=== PATIENT | female | born 1980 | race Caucasian/White ===

== ENCOUNTER → 2018-03-23 07:20 | Outpatient (CLI) | payer OTHER, SELFPAY ==
[2018-03-23 10:13] LABS: Absolute Lymphocyte Count 1.19 X10^3/ul (0.83-4.51); Absolute Neutrophil Count 1.9 X10^3/uL (2.0-7.7); Basophil# 0.01 X10^3/uL; Basophil% 0.3 % (0-1); Eosinophil# 0.06 X10^3/uL; Eosinophils% 1.6 % (0-5); Hematocrit 41.9 % (37-47); Hemoglobin 13.9 g/dl (12.0-15.0); Lymphocyte # 1.19 X10^3/ul (4.0); Lymphocyte % 32.2 % (19-41); Mean Corp Hgb Conc 33.2 g/gl (32-36); Mean Corpuscular Hgb 29.5 pg (27.0-32.0); Mean Platelet Vol. 10.3 fl (6.2-12.0); Monocyte# 0.51 X10^3/uL; Monocyte% 13.8 % (0-10); Neutrophil # 1.92 X10^3/uL (2.7-7.7); Neutrophil % 52.1 % (47-70); Platelet Count 281 K/mm3 (150-450); RBC Distribution Width CV 13.4 % (11.6-14.6); Red Blood Count 4.71 M/mm3 (4.2-5.4); White Blood Count 3.7 K/mm3 (4.4-11.0)
[2018-03-23 10:16] LABS: POSITIVE COUNT NO; POSITIVE DIFFERENTIAL NO; POSITIVE MORPHOLOGY NO
[2018-03-23 10:34] LABS: ALB/GLOB Ratio 1.1 RATIO (0.9-2.4); AST(SGOT) 11 U/L (15-37); Alanine Aminotransfer ALT/SGPT 19 U/L (13-56); Albumin, Serum 3.6 g/dL (3.2-5.0); Alkaline Phosphatase 52 U/L (45-117); Anion Gap 8 (5-15); BUN 11 mg/dL (7-18); BUN/Creat Ratio 12.1 RATIO (10-20); Calcium,Total 8.2 mg/dL (8.5-10.1); Chloride 107 mmol/L (98-107); Creatinine, Serum 0.91 mg/dL (0.55-1.02); EST Glomerular Filtration Rate 74 mL/min (>60); Est Glom Filt Rate - Afr Amer 90 mL/min (>60); Globulin 3.4 g/dL (2.2-4.2); Glucose 110 mg/dL (74-106); Potassium 3.8 mmol/L (3.5-5.1); Sodium Level 141 mmol/L (136-145)
== END ==
PROVIDERS: Family Provider Family Medicine; PCP Family Medicine; Visit Provider Internal Medicine Rheumatology
DX: M06.4 Inflammatory polyarthropathy (principal); M21.40 Flat foot [pes planus] (acquired), unspecified foot; F32.89 Other specified depressive episodes; F41.9 Anxiety disorder, unspecified; I47.1 Supraventricular tachycardia; Z79.899 Other long term (current) drug therapy
CPT/HCPCS: 36415; 80053; 85025

== ENCOUNTER → 2018-03-30 07:44 | Outpatient (CLI) | payer OTHER, SELFPAY ==
[2018-03-30 10:25] LABS: Color, Urine Yellow (Yellow); Glucose, Dipstick Normal (Normal); Ketone-Dipstick Negative (Negative); Leukocyte Esterase-Dipstick Negative /ul (Negative); Nitrite-Dipstick Negative (Negative); Occult Blood-Urine Negative /ul (Negative); Protein-Dipstick Negative (Negative); Urine Bilirubin Dipstick Negative (Negative); Urine Clarity Clear (Clear); Urine Urobilinogen Normal (Normal)
[2018-03-30 10:36] LABS: Protein, Urine (Random) 6.7 mg/dL (<11.9); Protein:Creat Ratio 151 mg/g CRE (0-200)
[2018-03-31 10:15] LABS: Complement C3 99 mg/dL (82-167)
[2018-03-31 10:51] LABS: Vitamin D,25 Hydroxy 27.5 ng/mL (29.95-100.01)
[2018-03-31 14:34] LABS: Anti-dsDNA Ab 1 IU/mL (0-9)
== END ==
PROVIDERS: Family Provider Family Medicine; PCP Family Medicine; Visit Provider Internal Medicine Rheumatology
DX: M06.4 Inflammatory polyarthropathy (principal); M21.40 Flat foot [pes planus] (acquired), unspecified foot; F32.89 Other specified depressive episodes; F41.9 Anxiety disorder, unspecified; I47.1 Supraventricular tachycardia; Z79.899 Other long term (current) drug therapy
CPT/HCPCS: 36415; 81002; 82306; 82570; 84156; 86160; 86225

== ENCOUNTER → 2018-04-06 08:01 | Outpatient (CLI) | payer OTHER, SELFPAY ==
--- NOTE | 2018-04-06 08:12 | ECHOD_ITS ---
Reason For Study: SVT Procedure This was a 2D Doppler, Color Flow transthoracic echocardiogram. The exam was of adequate technical quality. Exam performed in department. Left Ventricle Normal LV size. Left ventricular systolic function is normal. The estimated ejection fraction is 60 %. No evidence for diastolic dysfunction. No regional wall motion abnormalities noted. Right Ventricle Normal RV size. Normal systolic function. Atria Normal left atrium. Normal right atrium. No doppler evidence for ASD. Mitral Valve There is no mitral annular calcification. Normal mitral valve. Trivial mitral valve insufficiency. Tricuspid Valve Normal tricuspid valve. Trivial tricuspid valve insufficiency. Aortic Valve Trisinus/trileaflet aortic valve. Normal aortic valve. Pulmonic Valve The pulmonic valve is not well visualized. Trivial pulmonic valve insufficiency. Great Vessels Normal sized aortic root. Pericardium/Pleural Trivial pericardial effusion. There are no echocardiographic indications of cardiac tamponade. MMode/2D Measurements & Calculations LVIDd: 4.1 cm IVSd: 0.76 cm Ao root diam: 2.1 cm LVIDs: 2.8 cm LVPWd: 0.70 cm LA dimension: 3.2 cm RVDd: 2.7 cm FS: 33.1 % LAV(MOD-bp): 22.4 ml EDV(MOD-sp4): 56.4 ml SV(MOD-sp4): 34.1 ml LAV(MOD-bp) Indexed: 13.4 ml/m2 ESV(MOD-sp4): 22.3 ml LAV(MOD-sp2): 29.8 ml EF(MOD-sp4): 60.4 % LAV(MOD-sp4): 16.3 ml LA A4 area: 9.6 cm2 RA A4 area: 8.5 cm2 Doppler Measurements & Calculations MV E max nnamdi: 95.5 cm/sec Lat Peak E' Nnamdi: 15.5 cm/sec Med Peak E' Nnamdi: 12.4 cm/sec MV A max nnamdi: 53.5 cm/sec E/E' lat: 6.2 E/E' med: 7.7 MV E/A: 1.8 Ao V2 max: 133.2 cm/sec LV V1 max: 102.6 cm/sec PA V2 max: 95.2 cm/sec Ao max P.1 mmHg LV V1 max P.2 mmHg Ao V2 mean: 102.7 cm/sec Ao mean P.4 mmHg Ao V2 VTI: 29.8 cm Interpretation Summary Left ventricular systolic function is normal. The estimated ejection fraction is 60 %. Trivial mitral valve insufficiency. Trivial tricuspid valve insufficiency. Trivial pulmonic valve insufficiency. Trivial pericardial effusion. There are no echocardiographic indications of cardiac tamponade. No evidence for diastolic dysfunction. Ordering Physician: Cassy Becker Referring Physician: Rosendo Cavazos Performed By: Lois Dowd RDCS, RVT
== END ==
PROVIDERS: Family Provider Family Medicine; PCP Family Medicine; Visit Provider Internal Medicine Rheumatology
DX: I47.1 Supraventricular tachycardia (principal); M06.4 Inflammatory polyarthropathy; M21.40 Flat foot [pes planus] (acquired), unspecified foot; F32.89 Other specified depressive episodes; F41.9 Anxiety disorder, unspecified; Z79.899 Other long term (current) drug therapy
CPT/HCPCS: 93306

== ENCOUNTER → 2018-08-09 07:37 | Outpatient (CLI) | payer OTHER, SELFPAY ==
[2018-08-09 10:17] LABS: Absolute Lymphocyte Count 1.75 X10^3/ul (0.83-4.51); Absolute Neutrophil Count 3.4 X10^3/uL (2.0-7.7); Basophil# 0.02 X10^3/uL; Basophil% 0.3 % (0-1); Eosinophil# 0.05 X10^3/uL; Eosinophils% 0.9 % (0-5); Hematocrit 42.2 % (37-47); Hemoglobin 13.6 g/dl (12.0-15.0); Lymphocyte # 1.75 X10^3/ul (4.0); Lymphocyte % 30.1 % (19-41); Mean Corp Hgb Conc 32.2 g/gl (32-36); Mean Corpuscular Hgb 29.5 pg (27.0-32.0); Mean Corpuscular Volume 91.5 fL (81-99); Mean Platelet Vol. 9.9 fl (6.2-12.0); Monocyte# 0.57 X10^3/uL; Monocyte% 9.8 % (0-10); Neutrophil # 3.42 X10^3/uL (2.7-7.7); Neutrophil % 58.7 % (47-70); Platelet Count 283 K/mm3 (150-450); RBC Distribution Width SD 43.5 fl (35.1-43.9); Red Blood Count 4.61 M/mm3 (4.2-5.4); White Blood Count 5.8 K/mm3 (4.4-11.0)
[2018-08-09 10:24] LABS: POSITIVE COUNT NO; POSITIVE DIFFERENTIAL NO; POSITIVE MORPHOLOGY NO
[2018-08-09 10:39] LABS: AST(SGOT) 11 U/L (15-37); Alanine Aminotransfer ALT/SGPT 20 U/L (13-56); Albumin, Serum 3.5 g/dL (3.2-5.0); Alkaline Phosphatase 52 U/L (45-117); Anion Gap 10 (5-15); BUN 7 mg/dL (7-18); BUN/Creat Ratio 8.3 RATIO (10-20); Chloride 107 mmol/L (98-107); Cholesterol 197 mg/dL (200); Creatinine, Serum 0.84 mg/dL (0.55-1.02); EST Glomerular Filtration Rate 81 mL/min (>60); Est Glom Filt Rate - Afr Amer 98 mL/min (>60); Globulin 3.4 g/dL (2.2-4.2); Glucose 77 mg/dL (74-106); High Density Lipoprotein 51 mg/dL; Potassium 3.9 mmol/L (3.5-5.1); Protein, Total 6.9 g/dL (6.4-8.2); Sodium Level 142 mmol/L (136-145); Thyroid Stim Hormone (TSH) 2.77 uIU/mL (0.358-3.74); Triglycerides 76 mg/dL; Very Low Density Lipoprotein 15 mg/dL (5-40)
[2018-08-11 20:08] LABS: Red Blood Cell Count Test/G6PD 4.55 x10E6/uL (3.77-5.28)
[2018-08-12 13:27] LABS: G6PD Quant Test 283 (146-376)
== END ==
PROVIDERS: Family Provider Family Medicine; PCP Family Medicine; Referring Provider Internal Medicine Rheumatology; Visit Provider Internal Medicine Rheumatology
DX: Z00.00 Encounter for general adult medical examination without abnormal findings (principal); M06.4 Inflammatory polyarthropathy; M21.40 Flat foot [pes planus] (acquired), unspecified foot; F32.89 Other specified depressive episodes; F41.9 Anxiety disorder, unspecified; I47.1 Supraventricular tachycardia; Z79.899 Other long term (current) drug therapy
CPT/HCPCS: 36415; 80053; 80061; 82955; 84443; 85025

== ENCOUNTER → 2018-08-12 07:29 | Outpatient (CLI) | payer OTHER, SELFPAY ==
[2018-08-12 10:58] LABS: Vitamin D,25 Hydroxy 24.3 ng/mL (29.95-100.01)
[2018-08-12 11:00] LABS: PTHIN 73.8 pg/mL (18.4-80.1)
== END ==
PROVIDERS: Family Provider Family Medicine; PCP Family Medicine; Referring Provider Family Medicine; Visit Provider Family Medicine
DX: D50.9 Iron deficiency anemia, unspecified (principal)
CPT/HCPCS: 36415; 82306; 83970

== ENCOUNTER 2019-06-17 19:38 | Emergency (ER) | payer OTHER, SELFPAY ==
[2019-03-02 07:34] VITALS: BMI 23.3
[2019-06-17 19:40] VITALS: BP 120/79; PULSE 103; RESP 16; TEMP 37.2; O2SAT 100; BMI 24.0
[2019-06-17 19:58] LABS: Bacteria 0 SEEN /hpf (None Seen); Mucous, Urine 0 SEEN /hpf (<or=2+)
[2019-06-17 20:03] LABS: Color, Urine Yellow (Yellow); Glucose, Dipstick Normal (Normal); Ketone-Dipstick Negative (Negative); Leukocyte Esterase-Dipstick 25 /ul (Negative); Nitrite-Dipstick Negative (Negative); Occult Blood-Urine 25 /ul (Negative); Protein-Dipstick 15 mg/dl (Negative); Urine Bilirubin Dipstick Negative (Negative); Urine Clarity Sl. Cloudy (Clear); Urine Urobilinogen 1 mg/dl (Normal)
[2019-06-17 20:17] LABS: Squamous Epithelial Cells - UA 0-5 SEEN /hpf (5-10)
[2019-06-17 20:19] LABS: Red Blood Cells-Urine 0-5 SEEN /hpf (0-5); White Blood Cells 0-5 SEEN /hpf (0-5)
[2019-06-17 20:39] VITALS: TEMP 37.3
[2019-06-17 21:00] VITALS: BP 119/70; PULSE 104; RESP 17; TEMP 37.3; O2SAT 98
--- NOTE | 2019-06-17 21:08 | CT_ITS ---
STUDY: CT ABDOMEN AND PELVIS WITHOUT CONTRAST REASON FOR EXAM: Female, 39 years old. Bilateral flank pain RADIATION DOSAGE (If Supplied By Facility): CTDIvol = ( 6.44 ) mGy, DLP = ( 313.50 ) mGycm TECHNIQUE: Transaxial images were obtained from the dome of the diaphragm to the symphysis pubis without oral contrast, and without intravenous contrast. Sagittal and coronal images were reconstructed. Individualized dose optimization techniques were used for this CT. COMPARISON: None. FINDINGS: The visualized lung bases are unremarkable. The visualized portions of the heart are within normal limits. Liver is prominent but homogeneous attenuation. There is a large solid nodule in the right lobe consistent with known hemangioma. Bile ducts are not dilated. Normal gallbladder and extrahepatic biliary system. Borderline splenomegaly containing tiny granulomatous calcification Normal pancreas. Normal bilateral adrenal glands. No evidence for renal obstruction or ureteral calculus.. No definitive evidence for renal mass given limited unenhanced nature of the study. Normal visualized stomach. Nonspecific ileus with diffuse fecal retention in the colon.. No evidence for acute appendicitis Normal abdominal aorta. Normal inferior vena cava. Normal retroperitoneum. Incompletely distended thick-walled bladder likely of no significance. . Normal abdominal wall. Normal osseous structures. CT/Abdomen/Pelvis without Cont IMPRESSION: Nonspecific hepatomegaly and borderline splenomegaly. Nonspecific ileus with diffuse fecal retention in the colon. No evidence for small bowel obstruction or pneumoperitoneum. Electronically Signed: Woo Bacon MD at 21:49 EDT , Service support ,
[2019-06-17] MEDS: 0.9% Normal Saline 1,000 ML 1000 ML IV (21:19)
[2019-06-17] MEDS: Ketorolac 30 MG/ML Syringe IV (21:20)
[2019-06-17 21:30] LABS: Absolute Lymphocyte Count 4.53 X10^3/uL (0.83-4.51); Absolute Neutrophil Count 3.1 X10^3/uL (2.0-7.7); Basophil# 0.12 X10^3/uL; Basophil% 1.4 % (0-1); Eosinophil# 0.14 X10^3/uL; Eosinophils% 1.7 % (0-5); Hematocrit 48.2 % (37-47); Lymphocyte # 4.53 X10^3/ul (4.0); Lymphocyte % 54.1 % (19-41); Mean Corp Hgb Conc 33.2 g/dL (32-36); Mean Corpuscular Hgb 29.5 pg (27.0-32.0); Mean Corpuscular Volume 88.9 fL (81-99); Mean Platelet Vol. 9.2 fl (6.2-12.0); NRBC Flagged by Analyzer 0 % (0-5); Neutrophil # 3.06 X10^3/uL (2.7-7.7); Neutrophil % 36.6 % (47-70); POSITIVE MORPHOLOGY YES; Platelet Count 194 K/mm3 (150-450); RBC Distribution Width CV 13.1 % (11.6-14.6); RBC Distribution Width SD 42.5 fl (35.1-43.9); Red Blood Count 5.42 M/mm3 (4.2-5.4); White Blood Count 8.4 K/mm3 (4.4-11.0)
[2019-06-17 21:36] LABS: Differential Indicated SCAN CRITERIA MET
[2019-06-17 21:39] LABS: Anion Gap 8 (5-15); BUN 6 mg/dL (7-18); BUN/Creat Ratio 6.2 RATIO (10-20); Calcium,Total 8.7 mg/dL (8.5-10.1); Chloride 104 mmol/L (98-107); Creatinine, Serum 0.97 mg/dL (0.55-1.02); EST Glomerular Filtration Rate 69 mL/min (>60); Est Glom Filt Rate - Afr Amer 84 mL/min (>60); Estimated Creatinine Clearance 68.57 ml/min; Glucose 88 mg/dL (74-106); Potassium 3.7 mmol/L (3.5-5.1); Sodium Level 138 mmol/L (136-145)
[2019-06-17 21:50] LABS: Differential Comment SCANNED
[2019-06-17 22:00] VITALS: TEMP 37.3
--- NOTE | 2019-06-17 22:47 | ED.DCSUM_ITS ---
- ER Visit Summary Date of Service: 06/17/19 Chief Complaint: Flank pain History of Present Illness: The patient is a 39 F who presents with bilateral flank pain that is been getting worse over the past 4 to 5 days. Patient describes it as aching. Patient states the pain is over both flanks. Patient states it improved somewhat with heat. Patient states nothing makes it worse. Patient admits to subjective fevers and sweats. Patient admits to some nausea and diarrhea recently. Patient admits to some dysuria. Patient does have a history of lupus. Physical Examination: Vital signs are stable. Patient is afebrile. Patient is in no acute distress. Oral mucosa is pink and moist. Neck is supple. Trachea is midline. There is no JVD noted. Heart was regular rate and rhythm. Lungs are clear and equal bilaterally. Abdomen is soft. Bowel sounds are normal. There is bilateral CVA tenderness. There is no rebound or guarding noted. Cranial nerves II through XII are intact. There are no focal motor or sensory deficits noted. Test Results: Urinalysis was obtained and does not show any evidence of urinary tract infection. CBC and basic metabolic profile within normal limits. CT scan of the abdomen and pelvis was obtained. There is no acute intra-abdominal process noted. Emergency Department Course and Treatment: Patient was given IV fluids and Toradol here. Patient was instructed to continue Tylenol and ibuprofen as needed for pain. Patient was instructed to follow-up with her primary care physician in 5 to 7 days for further evaluation. Patient understood and was agreeable with the plan. All questions were answered. Disposition: Discharge home Impression: Bilateral flank pain This note was generated with [employer] dictation software. It may contain incorrect words, spelling, and punctuation that were not noted in review of the chart prior to signing ED Disposition - Plan for ED Patient: Disposition: Home or Assisted Living Diagnosis: Bilateral flank pain Instructions: FLANK PAIN, Uncertain Cause Referrals: Rosendo Cavazos MD [Primary Care Provider] - 5-7 Days
[2019-06-17 22:59] VITALS: BP 122/81; PULSE 101; RESP 17; TEMP 37.3; O2SAT 97
== END 2019-06-17 23:09 | disposition home or self-care (01) ==
PROVIDERS: Emergency Provider Emergency Medicine; Family Provider Family Medicine; PCP Family Medicine
DX: R10.9 Unspecified abdominal pain (principal); F41.9 Anxiety disorder, unspecified; M32.9 Systemic lupus erythematosus, unspecified; Z79.82 Long term (current) use of aspirin; Z79.899 Other long term (current) drug therapy
CPT/HCPCS: 74176; 80048; 81001; 85025; 96361; 96374; 99283; J7030; A4216

== ENCOUNTER → 2019-06-20 16:42 | Outpatient (CLI) | payer OTHER, SELFPAY ==
[2019-06-17 19:40] VITALS: BMI 24.0
[2019-06-20 18:24] LABS: Hematocrit 43.6 % (37-47); Hemoglobin 14.7 g/dL (12.0-15.0)
[2019-06-20 18:29] LABS: Thyroid Stim Hormone (TSH) 2.24 uIU/mL (0.358-3.74)
[2019-06-20 18:35] LABS: Internal QC Validated? YES +Cl - CLEAR BKGD
[2019-06-20 18:36] LABS: Monotest Negative (Negative)
[2019-06-20 19:28] LABS: Color, Urine Yellow (Yellow); Glucose, Dipstick Normal (Normal); Ketone-Dipstick Negative (Negative); Leukocyte Esterase-Dipstick Negative /ul (Negative); Nitrite-Dipstick Negative (Negative); Occult Blood-Urine 25 /ul (Negative); Protein-Dipstick Negative (Negative); Urine Bilirubin Dipstick Negative (Negative); Urine Clarity Sl. Cloudy (Clear); Urine Urobilinogen Normal (Normal)
== END ==
PROVIDERS: Family Provider Family Medicine; PCP Family Medicine; Visit Provider Nurse Practitioner Family
DX: R10.9 Unspecified abdominal pain (principal); R53.83 Other fatigue
CPT/HCPCS: 36415; 81002; 84443; 85014; 85018; 86308; 87086; 87088

== ENCOUNTER → 2019-08-08 14:48 | Outpatient (CLI) | payer OTHER, SELFPAY ==
[2019-08-08 17:24] LABS: Absolute Lymphocyte Count 3.35 X10^3/uL (0.83-4.51); Absolute Neutrophil Count 3.1 X10^3/uL (2.0-7.7); Basophil# 0.05 X10^3/uL; Basophil% 0.7 % (0-1); Eosinophils% 1.4 % (0-5); Hematocrit 43.4 % (37-47); Hemoglobin 14.3 g/dL (12.0-15.0); Lymphocyte # 3.35 X10^3/ul (4.0); Lymphocyte % 47.1 % (19-41); Mean Corp Hgb Conc 32.9 g/dL (32-36); Mean Corpuscular Hgb 29.9 pg (27.0-32.0); Mean Corpuscular Volume 90.6 fL (81-99); Mean Platelet Vol. 9.8 fl (6.2-12.0); Monocyte# 0.55 X10^3/uL; Monocyte% 7.7 % (0-10); NRBC Flagged by Analyzer 0 % (0-5); Neutrophil # 3.05 X10^3/uL (2.7-7.7); Platelet Count 288 K/mm3 (150-450); RBC Distribution Width SD 42.9 fl (35.1-43.9); Red Blood Count 4.79 M/mm3 (4.2-5.4); White Blood Count 7.1 K/mm3 (4.4-11.0)
[2019-08-08 17:40] LABS: Erythrocyte Sedimentation Rate 5 mm/hr (0-20)
[2019-08-08 17:50] LABS: BUN 13 mg/dL (7-18); BUN/Creat Ratio 13.8 RATIO (10-20); Creatinine, Serum 0.94 mg/dL (0.55-1.02); EST Glomerular Filtration Rate 71 mL/min (>60); Est Glom Filt Rate - Afr Amer 86 mL/min (>60); Glucose 73 mg/dL (74-106); Protein, Total 7.6 g/dL (6.4-8.2)
[2019-08-08 17:51] LABS: ALB/GLOB Ratio 1.1 RATIO (0.9-2.4); AST(SGOT) 18 U/L (15-37); Alanine Aminotransfer ALT/SGPT 24 U/L (13-56); Alkaline Phosphatase 55 U/L (45-117); Anion Gap 7 (5-15); Calcium,Total 8.6 mg/dL (8.5-10.1); Chloride 110 mmol/L (98-107); Globulin 3.6 g/dL (2.2-4.2); Potassium 3.5 mmol/L (3.5-5.1); Sodium Level 141 mmol/L (136-145); Thyroid Stim Hormone (TSH) 3.03 uIU/mL (0.358-3.74)
== END ==
PROVIDERS: Family Provider Family Medicine; PCP Family Medicine; Referring Provider Family Medicine; Visit Provider Family Medicine
DX: R16.2 Hepatomegaly with splenomegaly, not elsewhere classified (principal)
CPT/HCPCS: 36415; 80053; 84443; 85025; 85652

== ENCOUNTER → 2020-04-10 09:16 | Outpatient (CLI) | payer OTHER, SELFPAY ==
[2020-04-10 10:34] LABS: Absolute Lymphocyte Count 2.17 X10^3/uL (0.83-4.51); Absolute Neutrophil Count 2.2 X10^3/uL (2.0-7.7); Basophil# 0.06 X10^3/uL; Basophil% 1.2 % (0-1); Eosinophil# 0.09 X10^3/uL; Eosinophils% 1.8 % (0-5); Hematocrit 44.9 % (37-47); Hemoglobin 14.6 g/dL (12.0-15.0); Lymphocyte # 2.17 X10^3/ul (4.0); Lymphocyte % 43.8 % (19-41); Mean Corp Hgb Conc 32.5 g/dL (32-36); Mean Corpuscular Hgb 29.9 pg (27.0-32.0); Mean Corpuscular Volume 91.8 fL (81-99); Mean Platelet Vol. 9.6 fl (6.2-12.0); Monocyte# 0.44 X10^3/uL; Monocyte% 8.9 % (0-10); NRBC Flagged by Analyzer 0 % (0-5); Neutrophil # 2.19 X10^3/uL (2.7-7.7); Neutrophil % 44.1 % (47-70); Platelet Count 310 K/mm3 (150-450); RBC Distribution Width CV 12.7 % (11.6-14.6); RBC Distribution Width SD 42.7 fl (35.1-43.9); Red Blood Count 4.89 M/mm3 (4.2-5.4)
[2020-04-10 12:15] LABS: ALB/GLOB Ratio 1.1 RATIO (0.9-2.4); AST(SGOT) 13 U/L (15-37); Alanine Aminotransfer ALT/SGPT 23 U/L (13-56); Albumin, Serum 3.8 g/dL (3.2-5.0); Alkaline Phosphatase 54 U/L (45-117); Anion Gap 8 (5-15); BUN 9 mg/dL (7-18); BUN/Creat Ratio 9.6 RATIO (10-20); Calcium,Total 8.8 mg/dL (8.5-10.1); Chloride 106 mmol/L (98-107); Creatinine, Serum 0.94 mg/dL (0.55-1.02); EST Glomerular Filtration Rate 71 mL/min (>60); Est Glom Filt Rate - Afr Amer 86 mL/min (>60); Follicle Stimulating Hormone 7.4 mIU/mL; Free T3 2.8 pg/mL (2.18-3.98); Globulin 3.6 g/dL (2.2-4.2); Glucose 81 mg/dL (74-106); Luteinizing Hormone 3.6 mIU/mL; Magnesium 2.3 mg/dL (1.6-2.6); Potassium 3.9 mmol/L (3.5-5.1); Protein, Total 7.4 g/dL (6.4-8.2); Sodium Level 142 mmol/L (136-145); T4 Free Direct 0.99 ng/dL (0.76-1.46); Thyroid Stim Hormone (TSH) 1.43 uIU/mL (0.358-3.74)
[2020-04-14 03:06] LABS: Lyme IgG P18 Ab Absent (.); Lyme IgG P23 Ab Absent (.); Lyme IgG P28 Ab Absent (.); Lyme IgG P30 Ab Absent (.); Lyme IgG P39 Ab Absent (.); Lyme IgG P41 Ab Absent (.); Lyme IgG P45 Ab Absent (.); Lyme IgG P58 Ab Absent (.); Lyme IgG P66 Ab Absent (.); Lyme IgG P93 Ab Absent (.); Lyme IgM P23 Ab Absent (.); Lyme IgM P39 Ab Absent (.); Lyme IgM P41 Ab Absent (.); QNTFERON TB Mitogen Value > 10.00 IU/mL (.); QNTFERON TB Nil Value 0.08 IU/mL (.); QNTFERON TB1+ Ag Value 0.11 IU/mL (.); QNTFERON TB2+ Ag Value 0.19 IU/mL (.)
[2020-04-14 13:08] LABS: Lyme IgG WB Interpretation Negative (.); Lyme IgM WB Interpretation Negative (.); QNTIFERON TB Positive Criteria Negative (Negative)
== END ==
PROVIDERS: PCP Family Medicine; Referring Provider Family Medicine; Visit Provider Family Medicine
DX: R61 Generalized hyperhidrosis (principal)
CPT/HCPCS: 36415; 80053; 83001; 83002; 83735; 84439; 84443; 84481; 85025; 86480; 86617

== ENCOUNTER → 2020-11-15 10:19 | Outpatient (CLI) | payer OTHER, SELFPAY ==
[2020-11-15 12:22] LABS: Absolute Lymphocyte Count 2.37 X10^3/uL (0.83-4.51); Absolute Neutrophil Count 3.2 X10^3/uL (2.0-7.7); Basophil# 0.06 X10^3/uL; Eosinophil# 0.09 X10^3/uL; Eosinophils% 1.5 % (0-5); Hematocrit 44.2 % (37-47); Hemoglobin 14.6 g/dL (12.0-15.0); Lymphocyte # 2.37 X10^3/ul (4.0); Lymphocyte % 38.6 % (19-41); Mean Corpuscular Hgb 30.5 pg (27.0-32.0); Mean Corpuscular Volume 92.3 fL (81-99); Mean Platelet Vol. 9.6 fl (6.2-12.0); Monocyte# 0.44 X10^3/uL; Monocyte% 7.2 % (0-10); NRBC Flagged by Analyzer 0 % (0-5); Neutrophil # 3.16 X10^3/uL (2.7-7.7); Neutrophil % 51.4 % (47-70); Platelet Count 342 K/mm3 (150-450); RBC Distribution Width CV 12.6 % (11.6-14.6); RBC Distribution Width SD 42.8 fl (35.1-43.9); Red Blood Count 4.79 M/mm3 (4.2-5.4); White Blood Count 6.1 K/mm3 (4.4-11.0)
[2020-11-15 13:01] LABS: ALB/GLOB Ratio 1.1 RATIO (0.9-2.4); AST(SGOT) 14 U/L (15-37); Alanine Aminotransfer ALT/SGPT 20 U/L (13-56); Albumin, Serum 3.9 g/dL (3.2-5.0); Alkaline Phosphatase 61 U/L (45-117); Anion Gap 6 (5-15); BUN 13 mg/dL (7-18); BUN/Creat Ratio 12.9 RATIO (10-20); CPK Total, Creatine Kinase 76 U/L (26-192); Calcium,Total 8.6 mg/dL (8.5-10.1); Chloride 107 mmol/L (98-107); Creatinine, Serum 1.01 mg/dL (0.55-1.02); EST Glomerular Filtration Rate 65 mL/min (>60); Est Glom Filt Rate - Afr Amer 79 mL/min (>60); Globulin 3.5 g/dL (2.2-4.2); Glucose 72 mg/dL (74-106); Potassium 3.9 mmol/L (3.5-5.1); Protein, Total 7.4 g/dL (6.4-8.2); Rheumatoid Factor < 10.0 IU/mL (<15); Sodium Level 138 mmol/L (136-145)
[2020-11-17 03:06] LABS: Complement C3 107 mg/dL (82-167); Dilute Prothrombin Time (dPT) 40.4 sec (0.0-55.0); Dilute Russell Viper Venom 39.2 sec (0.0-47.0); PTT-LA 36.1 sec (0.0-51.9); Thrombin Time 18.8 sec (0.0-23.0); dPT Confirm Ratio 1.18 Ratio (0.00-1.40)
[2020-11-17 08:35] LABS: Anti-Cardiolipin Ab, IgA, Qn 9 APL U/mL (0-11); Anti-Cardiolipin Ab, IgG, Qn 9 GPL U/mL (0-14); Anti-Cardiolipin Ab, IgM, Qn 17 MPL U/mL (0-12); CCP IgG Antibodies 9 units (0-19); Interpretation Comment: (.)
== END ==
PROVIDERS: PCP Family Medicine
DX: M32.10 Systemic lupus erythematosus, organ or system involvement unspecified (principal); E16.2 Hypoglycemia, unspecified
CPT/HCPCS: 36415; 80053; 82550; 85025; 86038; 86147; 86160; 86200; 86225; 86235; 86431

== ENCOUNTER → 2021-07-31 | Outpatient (CLI) | payer OTHER, SELFPAY | END | disposition home or self-care (01) | LOC: LABSPEC 15:12 | PROVIDERS: PCP Family Medicine; Visit Provider Physician Assistant | DX: Z20.822 Contact with and (suspected) exposure to COVID-19 (principal) | CPT/HCPCS: 87635; U0005; U0003 ==

== ENCOUNTER 2022-01-09 07:56 | Outpatient (CLI) | payer OTHER, SELFPAY ==
--- NOTE | 2022-01-09 07:58 | US_ITS ---
STUDY: ABDOMINAL ULTRASOUND REASON FOR EXAM: Female, 41 years old. ABD PAIN TECHNIQUE: Transabdominal ultrasound was performed with real-time and static ron scale imaging. TECHNICAL QUALITY: Adequate. COMPARISON: None. FINDINGS: Liver: The liver measures 14 cm. There is normal echogenicity of the liver. The bile ducts are within normal limits. There is hepatic color flow. The direction of portal flow is hepatopetal. Stable known hemangioma in the right lobe measuring 6.8 x 6.8 x 5.8 cm. Portal vein measurement: Gallbladder: Normal distended gallbladder. The gallbladder wall measures 1.8 mm. There is a negative sonographic Broussard''s sign. There is no pericholecystic fluid. There are no gallstones, there is a nonshadowing 5 mm polyp. Common Bile Duct (C.B.D.): The common bile duct measures 3.1 mm. Pancreas: Normal size of the head, body and tail of the pancreas. There is normal echogenicity of the pancreas. There is no demonstrated pancreatic mass or cyst. Spleen: Normal size of the spleen. The spleen measures 9.6 cm. Right Kidney: Normal size of the right kidney. The right kidney measures 10.6 x 4.5 x 3.1 cm. Normal renal cortex. The right cortex measures 1.0 cm. There is no demonstrated renal mass or cyst. There is no right hydronephrosis. Left Kidney: Normal size of the left kidney. The left kidney measures 10.3 x 4.5 x 3.6 cm. Normal renal cortex. The left cortex measures 1.2 cm. There is no demonstrated renal mass or cyst. There is no left hydronephrosis. Aorta: Tapers normally I.V.C.: The IVC is patent. There is no ascites. US/Abdomen Complete IMPRESSION: Stable 6.8 cm hyperechoic hemangioma in the right lobe of the liver Nonshadowing gallbladder polyp, no sonographic evidence of acute gallbladder disease Sonographically normal kidneys Electronically Signed: Niels Burrell MD at 17:20 EST ,
== END 2022-01-09 23:59 | disposition home or self-care (01) ==
LOC: US 07:57
PROVIDERS: PCP Family Medicine; Referring Provider Nurse Practitioner Family; Visit Provider Nurse Practitioner Family
DX: R10.13 Epigastric pain (principal)
CPT/HCPCS: 76700

== ENCOUNTER → 2022-03-04 | Outpatient (CLI) | payer OTHER, SELFPAY ==
--- NOTE | 2022-03-04 10:17 | RAD_ITS ---
INDICATION: JOINT PAIN, SYSTEMIC LUPUS EXAMINATION/TECHNIQUE: X-RAY - LEFT XR Wrist Min 3 Views 3 VIEWS COMPARISON: None. FINDINGS: No acute fracture or subluxation. Joint spaces are intact. No significant degenerative changes. No destructive osseous lesions. Soft tissues are unremarkable. RAD/Wrist min 3 Views IMPRESSION: Negative. Electronically Signed: Geo Clemens, at 11:22 EDT ,
--- NOTE | 2022-03-04 10:18 | RAD_ITS ---
STUDY: X-RAY - RIGHT HAND REASON FOR EXAM: Female, 41 years old. Pain. TECHNIQUE: 3 view(s) of the hand. COMPARISON: None. FINDINGS: Normal radiocarpal articulation. Normal distal radioulnar joint. Normal visualized carpal bones. Mild arthrosis of the radial carpal row. Mild arthrosis of the first CMC joint. Normal second through fifth carpometacarpal joints. Normal metacarpi. Mild arthrosis of the MCP and IP joints. The soft tissue structures are unremarkable. RAD/Hand Min 3 Views IMPRESSION: Mild osteoarthritic changes as described. No acute abnormality. Electronically Signed: Herbert Munguia MD at 10:43 EDT ,
--- NOTE | 2022-03-04 10:18 | RAD_ITS ---
STUDY: X-RAY - LEFT HAND REASON FOR EXAM: Female, 41 years old. Pain. TECHNIQUE: 3 view(s) of the hand. COMPARISON: None. FINDINGS: Normal radiocarpal articulation. Normal distal radioulnar joint. Normal visualized carpal bones. Mild arthrosis of the radial carpal row. Mild arthrosis of the first CMC joint. Normal second through fifth carpometacarpal joints. Normal metacarpi. Mild arthrosis of the MCP and IP joints. The soft tissue structures are unremarkable. RAD/Hand Min 3 Views IMPRESSION: Mild osteoarthritic changes as described. No acute abnormality. Electronically Signed: Herbert Munguia MD at 10:44 EDT ,
--- NOTE | 2022-03-04 10:18 | RAD_ITS ---
INDICATION: JOINT PAIN EXAMINATION/TECHNIQUE: X-RAY - RIGHT XR Wrist Min 3 Views 3 VIEWS COMPARISON: None. FINDINGS: No acute fracture or subluxation. Joint spaces are intact. Soft tissues are unremarkable. No significant degenerative changes. No destructive osseous lesions. RAD/Wrist min 3 Views IMPRESSION: Negative. Electronically Signed: Geo Clemens, at 11:21 EDT ,
--- NOTE | 2022-03-04 10:20 | RAD_ITS ---
STUDY: X-RAY CHEST REASON FOR EXAM: Female, 41 years old. Lupus. Follow-up. TECHNIQUE: Frontal and lateral views of the chest. COMPARISON: 11/20/2017. FINDINGS: The lungs are clear and expanded. There is no demonstrated pleural abnormality. Normal size heart. Normal mediastinum and jose. Normal visualized pulmonary arteries. Normal visualized aortic arch and descending thoracic aorta. Normal visualized thoracic spine. Normal visualized ribs, clavicles, and shoulders. There is no demonstrated abnormality of the visualized soft tissue structures of the upper abdomen. RAD/Chest PA and Lateral IMPRESSION: No interval change. Normal chest. Electronically Signed: Herbert Munguia MD at 10:44 EDT ,
== END | disposition home or self-care (01) ==
LOC: MTRAD 10:11
PROVIDERS: PCP Family Medicine
DX: M32.10 Systemic lupus erythematosus, organ or system involvement unspecified (principal); J84.9 Interstitial pulmonary disease, unspecified; M19.041 Primary osteoarthritis, right hand; M19.042 Primary osteoarthritis, left hand; M25.531 Pain in right wrist; M25.532 Pain in left wrist
CPT/HCPCS: 71046; 73110; 73130

== ENCOUNTER → 2022-08-19 | Outpatient (CLI) | payer OTHER, SELFPAY ==
--- NOTE | 2022-08-19 11:55 | BI_ITS ---
MAMMOGRAPHY - BILATERAL SCREENING REASON FOR EXAM: Female, 42 years old. Routine annual screening examination. PERTINENT HISTORY: Grandmother with breast cancer. TECHNIQUE: Digital bilateral breast shayla (3D mammographic acquisition) in the CC and MLO projections. 2-D mediolateral oblique (MLO) and craniocaudad (CC) views of both breasts were obtained. CAD: Full Field Digital Mammography with Computer Added Detection was performed. COMPARISON: None. Baseline examination. FINDINGS: Breast Composition: The breasts are heterogeneously dense, which may obscure small masses. There are no dominant masses or suspicious calcifications. No other significant abnormalities are identified. BI/SCRN MAMM (CAD)W/SHAYLA BILAT IMPRESSION: Negative screening mammogram. Yearly followup mammogram recommended. (A) ASSESSMENT CATEGORY: BIRADS Category 1: Negative. A letter regarding these results will be sent to the patient by the facility within 30 days. Approximately 10% of breast cancers are not detected by mammography. A normal mammogram should not delay biopsy of a clinically suspicious abnormality. [id number] Electronically Signed: Erick Mariee MD at 13:01 EDT ,
== END | disposition home or self-care (01) ==
LOC: OPBI 11:50
PROVIDERS: PCP Family Medicine; Referring Provider Family Medicine; Visit Provider Family Medicine
DX: Z12.31 Encounter for screening mammogram for malignant neoplasm of breast (principal); Z80.3 Family history of malignant neoplasm of breast
CPT/HCPCS: 77063; 77067

== ENCOUNTER → 2022-11-19 | Outpatient (CLI) | payer OTHER, SELFPAY | END | disposition home or self-care (01) | LOC: LABSPEC 12:49 | PROVIDERS: PCP Family Medicine; Referring Provider Nurse Practitioner Family; Visit Provider Nurse Practitioner Family | DX: J02.9 Acute pharyngitis, unspecified (principal) | CPT/HCPCS: 87070 ==

== ENCOUNTER → 2023-01-22 | Outpatient (CLI) | payer OTHER, SELFPAY ==
[2023-01-22 09:54] LABS: Erythrocyte Sedimentation Rate 2 mm/hr (0-30)
[2023-01-22 10:03] LABS: CRP < 2.90 mg/L (0.0-3.0)
== END | disposition home or self-care (01) ==
LOC: MFPLAB 08:25
PROVIDERS: PCP Family Medicine; Referring Provider Family Medicine; Visit Provider Family Medicine
DX: K52.9 Noninfective gastroenteritis and colitis, unspecified (principal)
CPT/HCPCS: 36415; 85652; 86140

== ENCOUNTER → 2023-01-24 | Outpatient (CLI) | payer OTHER, SELFPAY | END | disposition home or self-care (01) | LOC: LABSPEC 11:05 | PROVIDERS: PCP Family Medicine; Visit Provider Family Medicine | DX: K52.9 Noninfective gastroenteritis and colitis, unspecified (principal) | CPT/HCPCS: 87177; 87209; 87506 ==

== ENCOUNTER → 2023-02-20 | Outpatient (CLI) | payer OTHER, SELFPAY ==
[2023-02-20 12:51] LABS: Bacteria 0 SEEN /hpf (None Seen); Mucous, Urine 0 SEEN /hpf (<or=2+); Red Blood Cells-Urine 0 SEEN /hpf (0-5); Squamous Epithelial Cells - UA 0 SEEN /hpf (5-10); White Blood Cells 0 SEEN /hpf (0-5)
[2023-02-20 15:02] LABS: Absolute Lymphocyte Count 1.69 X10^3/uL (0.83-4.51); Absolute Neutrophil Count 3.1 X10^3/uL (2.0-7.7); Basophil# 0.05 X10^3/uL; Basophil% 0.9 % (0-1); Eosinophil# 0.11 X10^3/uL; Eosinophils% 2.1 % (0-5); Hematocrit 43.3 % (37-47); Hemoglobin 14.7 g/dL (12.0-15.0); Lymphocyte # 1.69 X10^3/ul (0.83-4.51); Lymphocyte % 31.5 % (19-41); Mean Corp Hgb Conc 33.9 g/dL (32-36); Mean Corpuscular Volume 91.4 fL (81-99); Mean Platelet Vol. 9.8 fl (6.2-12.0); Monocyte# 0.39 X10^3/uL; Monocyte% 7.3 % (0-10); NRBC Flagged by Analyzer 0 % (0-5); Neutrophil % 57.8 % (47-70); Platelet Count 305 K/mm3 (150-450); RBC Distribution Width CV 12.6 % (11.6-14.6); RBC Distribution Width SD 42.1 fl (35.1-43.9); Red Blood Count 4.74 M/mm3 (4.2-5.4); White Blood Count 5.4 K/mm3 (4.4-11.0)
[2023-02-20 15:24] LABS: Color, Urine Yellow (Yellow); Glucose, Dipstick Normal (Normal); Ketone-Dipstick 5 mg/dl (Negative); Leukocyte Esterase-Dipstick Negative /ul (Negative); Nitrite-Dipstick Negative (Negative); Occult Blood-Urine 10 /ul (Negative); Protein-Dipstick Negative (Negative); Urine Bilirubin Dipstick Negative (Negative); Urine Clarity Sl. Cloudy (Clear); Urine Urobilinogen Normal (Normal)
[2023-02-20 15:26] LABS: Erythrocyte Sedimentation Rate 5 mm/hr (0-30)
[2023-02-20 15:45] LABS: AST(SGOT) 18 U/L (15-37); Alanine Aminotransfer ALT/SGPT 27 U/L (13-56); BUN 16 mg/dL (7-18); CRP < 2.90 mg/L (0.0-3.0); EST Glomerular Filtration Rate 65 mL/min (>60); Est Glom Filt Rate - Afr Amer 79 mL/min (>60)
[2023-02-22 12:15] LABS: Complement C3 106 mg/dL (82-167)
[2023-02-23 15:58] LABS: Anti-dsDNA Ab 1 IU/mL (0-9)
== END | disposition home or self-care (01) ==
PROVIDERS: Internal Medicine Nephrology; PCP Family Medicine; Referring Provider Internal Medicine Rheumatology; Visit Provider Internal Medicine Rheumatology
DX: M32.10 Systemic lupus erythematosus, organ or system involvement unspecified (principal)
CPT/HCPCS: 36415; 81001; 82565; 84450; 84460; 84520; 85025; 85652; 86140; 86160; 86225

== ENCOUNTER → 2023-06-30 | Outpatient (CLI) | payer OTHER, SELFPAY ==
--- NOTE | 2023-06-30 16:05 | RAD_ITS ---
INDICATION: WHEEZING, COUGH, Acute bronchospasm EXAMINATION/TECHNIQUE: X-RAY - XR Chest 2 Views COMPARISON: Prior study dated: March 04, 2022 FINDINGS: LINES/DEVICES: None. LUNGS: No consolidation, edema or effusion. No pneumothorax. MEDIASTINUM AND CARDIOVASCULAR STRUCTURES: Cardiac silhouette not enlarged. Central airways and mediastinal contour are unremarkable. BONES AND SOFT TISSUES: Unremarkable. RAD/Chest PA and Lateral IMPRESSION: No radiographic evidence of acute cardiopulmonary disease. Electronically Signed: Gunjan Villalta MD at 8:39 EDT ,
== END | disposition home or self-care (01) ==
LOC: MTRAD 16:03
PROVIDERS: PCP Family Medicine; Referring Provider Family Medicine; Visit Provider Family Medicine
DX: J98.01 Acute bronchospasm (principal)
CPT/HCPCS: 71046

== ENCOUNTER → 2023-08-13 | Outpatient (CLI) | payer OTHER, SELFPAY ==
[2023-08-13 08:16] LABS: Bacteria 0 SEEN /hpf (None Seen); Mucous, Urine 0 SEEN /hpf (<or=2+); Red Blood Cells-Urine 0 SEEN /hpf (0-5); White Blood Cells 0 SEEN /hpf (0-5)
[2023-08-13 08:44] LABS: Erythrocyte Sedimentation Rate < 1 mm/hr (0-30)
[2023-08-13 08:47] LABS: Absolute Lymphocyte Count 2.09 X10^3/uL (0.83-4.51); Absolute Neutrophil Count 2.3 X10^3/uL (2.0-7.7); Basophil# 0.05 X10^3/uL; Color, Urine Yellow (Yellow); Eosinophil# 0.06 X10^3/uL; Eosinophils% 1.2 % (0-5); Glucose, Dipstick Normal (Normal); Hematocrit 43.3 % (37-47); Hemoglobin 14.3 g/dL (12.0-15.0); Ketone-Dipstick Negative (Negative); Leukocyte Esterase-Dipstick 25 /ul (Negative); Lymphocyte # 2.09 X10^3/ul (0.83-4.51); Lymphocyte % 41.5 % (19-41); Mean Corpuscular Hgb 30.7 pg (27.0-32.0); Mean Corpuscular Volume 92.9 fL (81-99); Mean Platelet Vol. 9.8 fl (6.2-12.0); Monocyte# 0.49 X10^3/uL; Monocyte% 9.7 % (0-10); NRBC Flagged by Analyzer 0 % (0-5); Neutrophil # 2.33 X10^3/uL (2.7-7.7); Neutrophil % 46.2 % (47-70); Nitrite-Dipstick Negative (Negative); Occult Blood-Urine Negative /ul (Negative); Platelet Count 308 K/mm3 (150-450); Protein-Dipstick Negative (Negative); RBC Distribution Width CV 12.8 % (11.6-14.6); RBC Distribution Width SD 43.7 fl (35.1-43.9); Red Blood Count 4.66 M/mm3 (4.2-5.4); Specific Gravity, Urine 1.015 (1.002-1.030); Urine Bilirubin Dipstick Negative (Negative); Urine Clarity Clear (Clear); Urine Urobilinogen 1 mg/dl (Normal)
[2023-08-13 09:02] LABS: Squamous Epithelial Cells - UA 5-10 SEEN /hpf (5-10)
[2023-08-13 09:21] LABS: AST(SGOT) 11 U/L (15-37); Alanine Aminotransfer ALT/SGPT 24 U/L (13-56); Anion Gap 7 (5-15); BUN 10 mg/dL (7-18); BUN/Creat Ratio 10.4 RATIO (10-20); CRP < 2.90 mg/L (0.0-3.0); Calcium,Total 8.8 mg/dL (8.5-10.1); Chloride 110 mmol/L (98-107); Cholesterol 245 mg/dL (200); Creatinine, Serum 0.96 mg/dL (0.55-1.02); EST Glomerular Filtration Rate 68 mL/min (>60); Est Glom Filt Rate - Afr Amer 82 mL/min (>60); Glucose 96 mg/dL (74-106); High Density Lipoprotein 58 mg/dL; Sodium Level 140 mmol/L (136-145); Triglycerides 73 mg/dL; Very Low Density Lipoprotein 15 mg/dL (5-40)
[2023-08-14 04:07] LABS: Complement C3 110 mg/dL (82-167)
[2023-08-14 13:07] LABS: Anti-dsDNA Ab 1 IU/mL (0-9)
== END | disposition home or self-care (01) ==
PROVIDERS: PCP Family Medicine
DX: Z13.220 Encounter for screening for lipoid disorders (principal); M32.10 Systemic lupus erythematosus, organ or system involvement unspecified; Z13.1 Encounter for screening for diabetes mellitus
CPT/HCPCS: 36415; 80048; 80061; 81001; 84450; 84460; 85025; 85652; 86140; 86160; 86225; 87086

== ENCOUNTER → 2023-12-17 | Outpatient (CLI) | payer OTHER, SELFPAY ==
--- NOTE | 2023-12-17 07:55 | BI_ITS ---
MAMMOGRAPHY - BILATERAL SCREENING REASON FOR EXAM: Female, 43 years old. Routine annual screening examination. PERTINENT HISTORY: Grandmother with breast cancer. TECHNIQUE: Digital bilateral breast shayla (3D mammographic acquisition) in the CC and MLO projections. 2-D mediolateral oblique (MLO) and craniocaudad (CC) views of both breasts were obtained. CAD: Full Field Digital Mammography with Computer Added Detection was performed. COMPARISON: Comparison is made with prior study August 19, 2022. FINDINGS: Breast Composition: The breasts are heterogeneously dense, which may obscure small masses. There are no dominant masses or suspicious calcifications. No other significant abnormalities are identified. There has been no significant change since the prior study. BI/SCRN MAMM (CAD)W/SHAYLA BILAT IMPRESSION: Stable bilateral screening mammogram. Yearly follow-up mammogram recommended. (A) ASSESSMENT CATEGORY: BIRADS Category 1: Negative. A letter regarding these results will be sent to the patient by the facility within 30 days. Approximately 10% of breast cancers are not detected by mammography. A normal mammogram should not delay biopsy of a clinically suspicious abnormality. [id number] Electronically Signed: Erick Mariee MD at 9:11 EST ,
--- OUTSIDE RECORDS SUMMARY | 2023-12-17 08:06 | XMS RPT_ITS | CCD ---
Author Name Unknown Address [address] [place] [address] Organization [facility] Care Team Providers Care Steel Tester Name Role Phone REFERRING, KEVIN BLAIR ID Unavailable Unavailable LITO MANRIQUEZ Unavailable Unavailable ABIMBOLA CAVAZOS Unavailable Unavailable FLACO LINCOLN, VERONICA Gamez Attending Unavailable SAMUEL LINCOLN, ABIMBOLA Guevara Primary Care Unavailable FLACO LINCOLN, VERONICA Gamez Attending Unavailable SAMUEL LINCOLN, ABIMBOLA Guevara Primary Care Unavailable FLACO LINCOLN, VERONICA Gamez Attending Unavailable SAMUEL LINCOLN, ABIMBOLA Guevara Primary Care Unavailable ABIMBOLA CAVAZOS Consulting Unavailable ABIMBOLA CAVAZOS Referring Unavailable EMIL VIDAL DO Admitting Unavailable EMIL VIDAL DO Primary Care Unavailable EMIL VIDAL DO Attending Unavailable PROVIDER, UNKNOWN Consulting Unavailable BEN PAREKH Admitting Unavailable BEN PAREKH Primary Care Unavailable BEN PAREKH Attending Unavailable Abimbola Cavazos MD Primary Care Provider [phone] ABIMBOLA CAVAZOS Primary Care Unavailable Allergies Allergy Classification Reported Allergen(s) Allergy Type Date of Onset Reaction(s) Facility (1 source) Acetaminophen / oxyCODONE Drug Allergy [facility] Repository (2 sources) Acetaminophen / oxyCODONE; Translations: [OXYCODONE-ACETAM INOPHEN] Drug Allergy 3 Hives [facility] Work Phone: (2 sources) levoFLOXacin; Translations: [LEVOFLOXACIN] Drug Allergy 6 Mental Status Change [facility] (2 sources) NITROFURANTOIN, MACROCRYSTALS / Nitrofurantoin, Monohydrate; Translations: [NITROFURANTOIN MONOHYD/M-CRYST] Drug Allergy 4 GI Upset [facility] Medications Current Medications Medication Drug Class(es) Dates Sig (Normalized) Sig (Original) amoxicillin 80 mg/ml / clavulanate 11.4 mg/ml oral suspension (1 source) Penicillin-class Antibacterial Start: 06-25-2023 End: 07-02-2023 take 11 mL by mouth twice daily amoxicillin-clavulan ate (AUGMENTIN) 400-57 mg/5 mL suspension Indications: Sinobronchitis Take 11 mL by mouth twice daily for 7 days. 154 mL 0 06/25/2023 07/02/2023 Active Completed/Discontinued Medications Medication Drug Class(es) Dates Sig (Normalized) Sig (Original) [id number] 200 actuat albuterol 0.09 mg/actuat metered dose inhaler (1 source) beta2-Adrenergic Agonist Start: 05-22-2015 take 2 puff(s) by inhalation every four hours as needed albuterol HFA (PROAIR HFA) 90 mcg/actuation inhaler Inhale 2 Puffs as instructed every 4 hours as needed. 1 Inhaler 0 05/22/2015 Active Problems Active Problems Problem Classification Problem Date Documented Da te Episodic/Chronic Gastrointestinal hemorrhage (1 source) Rectal hemorrhage; Translations: [Hemorrhage of anus and rectum] 02-05-2016 Episodic Other upper respiratory infections (1 source) Chronic sinusitis; Translations: [Chronic sinusitis, unspecified] 06-25-2023 Chronic Ovarian cyst (1 source) Cyst of ovary; Translations: [Unspecified ovarian cyst, unspecified side] 02-05-2016 Episodic Systemic lupus erythematosus and connective tissue disorders (3 sources) Systemic lupus erythematosus, organ or system involvement unspecified; Translations: [Systemic lupus erythematosus] Onset: 10-19-2013 Chronic Unclassified (1 source) Unknown / UNK(Unknown) Onset: 05-06-2017 Past or Other Problems Problem Classification Problem Date Documented Da te Episodic/Chronic Other and unspecified benign neoplasm (1 source) Hemangioma; Translations: [Hemangioma unspecified site] Onset: 08-30-2014 08-30-2014 Episodic Other and unspecified benign neoplasm (1 source) Hemangioma of liver; Translations: [Hemangioma of intra-abdominal structures] Onset: 08-30-2014 08-30-2014 Episodic Other nervous system disorders (1 source) Paresthesia; Translations: [Paresthesia of skin] Onset: 03-30-2013 03-30-2013 Episodic Unclassified (1 source) MS Onset: 05-06-2017 Results Test Name Value Interpretation Reference Range Facil ity Vital Signs Date Time Vital Sign Value Performing Clinician Chelseaceline klein 06-25-2023 08:07-0400 Body temperature 97.9 [degF] Lito Martines AGRICULTURAL PURCHASING AGENT.SCALP SPECIALIST Work Phone: [facility] 06-25-2023 08:07-0400 Body weight 63.05 kg Lito Martines AGRICULTURAL PURCHASING AGENT.SCALP SPECIALIST Work Phone: [facility] 06-25-2023 08:07-0400 Diastolic blood pressure 78 mm[Hg] Lito Martines AGRICULTURAL PURCHASING AGENT.SCALP SPECIALIST Work Phone: [facility] 06-25-2023 08:07-0400 Heart rate 78 /min Lito Martines AGRICULTURAL PURCHASING AGENT.SCALP SPECIALIST Work Phone: [facility] 06-25-2023 08:07-0400 Respiratory rate 18 /min Lito Martines AGRICULTURAL PURCHASING AGENT.SCALP SPECIALIST Work Phone: [facility] 06-25-2023 08:07-0400 SaO2% (BldA) [Mass fraction] 98 % Lito Martines AGRICULTURAL PURCHASING AGENT.SCALP SPECIALIST Work Phone: [facility] 06-25-2023 08:07-0400 Systolic blood pressure 118 mm[Hg] Lito Martines AGRICULTURAL PURCHASING AGENT.SCALP SPECIALIST Work Phone: [facility] Encounters Encounter Date Encounter Type Care Provider Facility Start: 06-25-2023 End: 06-25-2023 ambulatory ABIMBOLA CAVAZOS Facility:[facility] Start: 06-25-2023 End: 06-25-2023 Patient encounter procedure Lito Martines APRN.SCALP SPECIALIST Work Phone: [facility] Procedures Date Procedure Procedure Detail Performing Clinician Start: 01-18-2023 Urinalysis ABIMBOLA CAVAZOS Plan of Treatment Date Care Activity Detail Author Start: 07-10-2023 Influenza vaccination INFLUENZA (#1) [facility] Start: 11-09-2022 DEPRESSION ASSESSMENT DEPRESSION ASS ESSMENT [facility] Start: 2022 Mammography MAMMOGRAM [facility] Start: 09-17-2021 COVID-19 VACCINE (3 - Pfizer series) COVID-19 VACCINE (3 - Pfizer series) [facility] Start: 06-27-2019 PAP TESTING PAP TESTING [facility] Start: 06-18-2017 HPV TESTING HPV TESTING [facility] Start: 2001 Urine microalbumin profile DTAP,TDAP ,TD (1 - Tdap) [facility] Start: 2000 HEPATITIS C SCREENING HEPATITIS C SC REENING [facility] Start: 2000 HIV SCREENING HIV SCREENING [facility] Start: 1982 HEPATITIS B (1 of 3 - 3-dose series) HEPATITIS B (1 of 3 - 3-dose series) [facility] Payers Date Payer Category Payer Unknown [id number] 2023 Unknown [employer] PPO [id number] 2023-Present [phone] [address] [place] [address] PPO [id number] 2014 Unknown [id number] 1982 Unknown [id number] 1982 Unknown [id number] 1982 Unknown [id number] 1982 Unknown [id number] 1982 Unknown [id number] Social History Date Type Detail Facility Start: 11-05-2011 Tobacco smoking stat us [facility] Never smoked tobacco [facility] Start: 11-05-2011 Tobacco use and exposure Smoke less tobacco non-user [facility] Start: 06-25-2023 Alcohol intake Current non-dr research and development tester of alcohol (finding) [facility] Start: 06-25-2023 History of Social function [facility] Start: 06-25-2023 Tobacco use panel [facility] Start: 1982 Sex Assigned At Not on file [facility] Progress note 06-25-2023 Note Date & Type Note Facility 06-25-2023 Note HNO ID: [id number] Author: Lito Martines APRN.SCALP SPECIALIST Service: ? Author Type: Nurse Practitioner Type: Progress Notes Filed: 06/25/2023 8:34 AM Note Text: Subjective HPI HPI Emilia Garnett is a 43 year old female who presents today for CC of cough, sinus pressure, ear pressuer. This started 2 weeks ago. Has tried otc medication and inhaler for relief. Symptoms are worsened by nothing. Risk factors hx of asthma. Nonsmoker. Denies possibility of being . .Patient presents with: Pain, Sinus: Pressure in face and ears, cough x 2 weeks PAST MEDICAL HISTORY Diagnosis Date Arthritis 11/2013 Dysthymic disorder Depression (non-psychotic) Fatigue 01/14/2013 Generalized anxiety disorder H/O supraventricular tachycardia 2012 was on Metoprolol and DC'ed d/t SE and no issues since Infertility female 07/05/2010 Multiple sclerosis (HCC) reversed-03/2013 Ovarian cyst Rectal bleeding Unspecified asthma(493.90) Asthma CHILDHOOD PAST SURGICAL HISTORY Procedure Laterality Date CATH AND SALINE/CONTRAST SONOHYSTER/HYSTEROSALPI 08/05/10 HSG for infertility DELIVERY ONLY 06/11/11 , low transverse at [place] COLONOSCOPY FLX DX W/COLLJ SPEC WHEN PFRMD 02/20/16 Colonoscopy with mac INSERTION OF IUD 07/2015 IUD REMOVAL 01/22 PAST SURGICAL HISTORY OF 01/25/12 Myomectomy; Needs repeat C/Ss in future UNSPECIFIED ORAL SURGERY PROCEDURE, BY REPORT 1999 wisdom teeth removed ALLERGIES Levaquin [Levofloxacin], Macrobid [Nitrofurantoin Monohyd/M-Cryst], and Percocet [Oxycodone-Acetaminophen] MEDICATIONS albuterol HFA (PROAIR HFA) 90 mcg/actuation inhaler Inhale 2 Puffs as instructed every 4 hours as needed. LORazepam (ATIVAN) 0.5 mg tab Take 0.5 mg by mouth as needed. busPIRone (BUSPAR) 10 mg tablet twice daily. PARoxetine (PAXIL) 10 mg tablet twice daily. aspirin, enteric coated (ASPIRIN, ENTERIC COATED) 81 mg EC tablet Take 81 mg by mouth once daily. L-METHYLFOLATE 7.5 mg tab Take 1 tablet by mouth once daily. Norethindrone, Contraceptive, (ORTHO MICRONOR) 0.35 mg tablet Take 1 tablet by mouth once daily. (Patient not taking: Reported on 06/25/2023) hydroxychloroquine (PLAQUENIL) 200 mg tablet 300 mg once daily. (Patient not taking: Reported on 06/25/2023) meloxicam (MOBIC) 15 mg tablet Take 15 mg by mouth once daily. (Patient not taking: Reported on 06/25/2023) FAMILY HISTORY Problem Relation Age of Onset Breast Cancer Maternal Grandmother Heart Father Heart Paternal Grandfather Thyroid Mother Hypo; Sjogren's Alzheimer's Disease Paternal Grandmother Arthritis Mother Arthritis Father Diabetes Paternal Grandmother Osteoporosis Mother Multiple Sclerosis Maternal Uncle Social History Tobacco Use Smoking status: Never Smokeless tobacco: Never Substance Use Topics Alcohol use: No Drug use: No Review of Systems Constitutional: Negative for fever. HENT: Positive for congestion, ear pain and sinus pain. Negative for nosebleeds and sore throat. Respiratory: Positive for cough and sputum production. Negative for shortness of breath and wheezing. Cardiovascular: Negative for chest pain. Musculoskeletal: Negative for neck pain. Skin: Negative for itching and rash. Objective Blood pressure 118/78, pulse 78, temperature 36.6 ?C (97.9 ?F), resp. rate 18, weight 63 kg (139 lb), last menstrual period 01/30/2016, SpO2 98 %. Physical Exam Constitutional: General: She is not in acute distress. Appearance: She is not toxic-appearing or diaphoretic. HENT: Head: Normocephalic and atraumatic. Right Ear: Hearing, tympanic membrane, ear canal and external ear normal. Left Ear: Hearing, tympanic membrane, ear canal and external ear normal. Nose: Right Sinus: Maxillary sinus tenderness present. Left Sinus: Maxillary sinus tenderness present. Mouth/Throat: Pharynx: Uvula midline. No pharyngeal swelling, oropharyngeal exudate, posterior oropharyngeal erythema or uvula swelling. Eyes: General: Lids are normal. No scleral icterus. Right eye: No discharge. Left eye: No discharge. Conjunctiva/sclera: Conjunctivae normal. Pupils: Pupils are equal, round, and reactive to light. Neck: Trachea: Trachea normal. Cardiovascular: Rate and Rhythm: Normal rate and regular rhythm. Heart sounds: Normal heart sounds. Pulmonary: Effort: Pulmonary effort is normal. Breath sounds: Normal breath sounds. Musculoskeletal: Cervical back: Normal range of motion and neck supple. Lymphadenopathy: Cervical: No cervical adenopathy. Right cervical: No superficial cervical adenopathy. Left cervical: No superficial cervical adenopathy. Skin: Findings: No rash. Neurological: Mental Status: She is alert and oriented to person, place, and time. ASSESSMENT/PLAN: 1. Sinobronchitis - ICD9: 473.9, 490, ICD10: J32.9, J40 - Will begin treatment with as per antibiotic as written, see orders - Supportive care with plenty of fluids, rest, (more content not included)... [facility] Instructions 06-25-2023 Patient Instructions Note Date & Type Note Facility 06-25-2023 Instructions Lito Martines APRN.ARIELLE - 06/25/2023 8:34 AM EDT SINUSITIS: You have sinusitis, an infection of the sinus cavities around the nose. This infection usually follows a respiratory illness; it can also be related to allergies, changes in atmospheric pressure (flying, diving), or anything that blocks nasal drainage. Symptoms include: headache, facial pain, a thick nasal discharge, congestion, and cough. The treatment includes antibiotic therapy, increasing oral fluids, and pain medication if needed. Nose spray decongestants (Afrin, Matteo-Synephrine) and oral decongestants may be needed to reduce congestion and drainage. Rarely the sinus must be irrigated to remove the infected material. Sinusitis can lead to serious complications by spreading to other areas such as the eye or brain. Please call your doctor or return here right away if you have any of the following more serious symptoms: Unusual swelling around the eye or trouble seeing. Increasing pain, severe headache, or toothache. Nausea, vomiting, or unusual drowsiness. documented in this encounter [facility] History of Present illness Narrative 06-25-2023 Lito Martines APRN.SCALP SPECIALIST - 06/25/2023 8:15 AM EDT Note Date & Type Note Facility 06-25-2023 History of Presen t illness Narrative Subjective HPI HPI Emilia Garnett is a 43 year old female who presents today for CC of cough, sinus pressure, ear pressuer. This started 2 weeks ago. Has tried otc medication and inhaler for relief. Symptoms are worsened by nothing. Risk factors hx of asthma. Nonsmoker. Denies possibility of being . .Patient presents with: Pain, Sinus: Pressure in face and ears, cough x 2 weeks PAST MEDICAL HISTORY Diagnosis Date Arthritis 11/2013 Dysthymic disorder Depression (non-psychotic) Fatigue 01/14/2013 Generalized anxiety disorder H/O supraventricular tachycardia 2012 was on Metoprolol and DC'ed d/t SE and no issues since Infertility female 07/05/2010 Multiple sclerosis (HCC) reversed-03/2013 Ovarian cyst Rectal bleeding Unspecified asthma(493.90) Asthma CHILDHOOD PAST SURGICAL HISTORY Procedure Laterality Date CATH & SALINE/CONTRAST SONOHYSTER/HYSTEROSALPI 08/05/10 HSG for infertility DELIVERY ONLY 06/11/11 , low transverse at [place] COLONOSCOPY FLX DX W/COLLJ SPEC WHEN PFRMD 02/20/16 Colonoscopy with mac INSERTION OF IUD 07/2015 IUD REMOVAL 01/22 PAST SURGICAL HISTORY OF 01/25/12 Myomectomy; Needs repeat C/Ss in future UNSPECIFIED ORAL SURGERY PROCEDURE, BY REPORT 1999 wisdom teeth removed ALLERGIES Levaquin [Levofloxacin], Macrobid [Nitrofurantoin Monohyd/M-Cryst], and Percocet [Oxycodone-Acetaminophen] MEDICATIONS albuterol HFA (PROAIR HFA) 90 mcg/actuation inhaler Inhale 2 Puffs as instructed every 4 hours as needed. LORazepam (ATIVAN) 0.5 mg tab Take 0.5 mg by mouth as needed. busPIRone (BUSPAR) 10 mg tablet twice daily. PARoxetine (PAXIL) 10 mg tablet twice daily. aspirin, enteric coated (ASPIRIN, ENTERIC COATED) 81 mg EC tablet Take 81 mg by mouth once daily. L-METHYLFOLATE 7.5 mg tab Take 1 tablet by mouth once daily. Norethindrone, Contraceptive, (ORTHO MICRONOR) 0.35 mg tablet Take 1 tablet by mouth once daily. (Patient not taking: Reported on 06/25/2023) hydroxychloroquine (PLAQUENIL) 200 mg tablet 300 mg once daily. (Patient not taking: Reported on 06/25/2023) meloxicam (MOBIC) 15 mg tablet Take 15 mg by mouth once daily. (Patient not taking: Reported on 06/25/2023) FAMILY HISTORY Problem Relation Age of Onset Breast Cancer Maternal Grandmother Heart Father Heart Paternal Grandfather Thyroid Mother Hypo; Sjogren's Alzheimer's Disease Paternal Grandmother Arthritis Mother Arthritis Father Diabetes Paternal Grandmother Osteoporosis Mother Multiple Sclerosis Maternal Uncle Social History Tobacco Use Smoking status: Never Smokeless tobacco: Never Substance Use Topics Alcohol use: No Drug use: No Review of Systems Constitutional: Negative for fever. HENT: Positive for congestion, ear pain and sinus pain. Negative for nosebleeds and sore throat. Respiratory: Positive for cough and sputum production. Negative for shortness of breath and wheezing. Cardiovascular: Negative for chest pain. Musculoskeletal: Negative for neck pain. Skin: Negative for itching and rash. Objective Blood pressure 118/78, pulse 78, temperature 36.6 C (97.9 F), resp. rate 18, weight 63 kg (139 lb), last menstrual period 01/30/2016, SpO2 98 %. Physical Exam Constitutional: General: She is not in acute distress. Appearance: She is not toxic-appearing or diaphoretic. HENT: Head: Normocephalic and atraumatic. Right Ear: Hearing, tympanic membrane, ear canal and external ear normal. Left Ear: Hearing, tympanic membrane, ear canal and external ear normal. Nose: Right Sinus: Maxillary sinus tenderness present. Left Sinus: Maxillary sinus tenderness present. Mouth/Throat: Pharynx: Uvula midline. No pharyngeal swelling, oropharyngeal exudate, posterior oropharyngeal erythema or uvula swelling. Eyes: General: Lids are normal. No scleral icterus. Right eye: No discharge. Left eye: No discharge. Conjunctiva/sclera: Conjunctivae normal. Pupils: Pupils are equal, round, and reactive to light. Neck: Trachea: Trachea normal. Cardiovascular: Rate and Rhythm: Normal rate and regular rhythm. Heart sounds: Normal heart sounds. Pulmonary: Effort: Pulmonary effort is normal. Breath sounds: Normal breath sounds. Musculoskeletal: Cervical back: Normal range of motion and neck supple. Lymphadenopathy: Cervical: No cervical adenopathy. Right cervical: No superficial cervical adenopathy. Left cervical: No superficial cervical adenopathy. Skin: Findings: No rash. Neurological: Mental Status: She is alert and oriented to person, place, and time. ASSESSMENT/PLAN: 1. Sinobronchitis - ICD9: 473.9, 490, ICD10: J32.9, J40 - Will begin treatment with as per antibiotic as written, see orders - Supportive care with plenty of fluids, rest, and analgesia prn. - Follow up in 3-5 days if symptoms persist or worsen. - AMOXICILLIN 400 MG-POTASSIUM CLAVULANATE 57 MG/5 ML ORAL SUSPENSION - PREDNISOLONE 15 MG/5 ML ORAL SOLUTION Lito Martines APRN.SCALP SPECIALIST documented in this encounter [facility] History of Past illness Narrative 02-20-2016 Note Date & Type Note Facility documented as of this encounter (statuses as of 06/25/2023) [facility] Evaluation note Note Date & Type Note Facility documented in this encounter [facility] Summary Purpose Family History No Family History Records FoundNo Family History Records FoundNo Family History Records FoundNo Family History Records Found Advance Directives No Advanced Directives Records FoundNo Advanced Directives Records FoundNo Advanced Directives Records FoundNo Advanced Directives Records Found Additional Source Comments INFORMATION SOURCE (unrecogn ized section and content) DATE CREATED AUTHOR AUTHOR'S ORGANIZ ATION 09/25/2022 [facility] DATE CREATED AUTHOR AUTHOR'S ORGANIZ ATION 04/21/2023 [facility] DATE CREATED AUTHOR AUTHOR'S ORGANIZ ATION 06/26/2023 [facility] Source Comments (unrecognize d section and content) In the event this informatio n is protected by the Federal Confidentiality of Alcohol and Drug Abuse Patient Records regulations: The Federal rules restrict any use of the information to criminally investigate or prosecute any alcohol or drug abuse patient.[facility] Reason for Visit (unrecogniz ed section and content) Specialty Diagnoses / Procedures Referred By Contac t Referred To Contact Family Medicine / [facility] Diagnoses Cough Headache sinus, congestion, cough, headache Procedures OFFICE/OUTPATIENT ESTABLISHED MOD MDM 30-39 MIN EST SAME DAY Self Lito Martines, MARTÍNEZ.SCALP SPECIALIST [address] [place] [address] Referral ID Status Reason Start Date Expiration Date Visits Re quested Visits Authorized [id number] Closed 06/25/2023 11/08/2023 1 1 Care Teams (unrecognized sec tion and content) FOR RECORDS PERTAINING TO PATIENTS WHO ARE OR HAVE BEEN ENROLLED IN A CHEMICAL DEPENDENCY/SUBSTANCEABUSE PROGRAM, SOME INFORMATION MAY BE OMITTED. This clinical summary was aggregated from multiple sources. Caution should be exercised in using it in the provision of clinical care. This summary normalizes information from multiple sources, and as a consequence, information in this document may materially change the coding, format and clinical context of patient data. In addition, data may be omitted in some cases. CLINICAL DECISIONS SHOULD BE BASED ON THE PRIMARY CLINICAL RECORDS. [facility] [employer] [facility]. provides no warranty or guarantee of the accuracy or completeness of information in this document.
== END | disposition home or self-care (01) ==
LOC: OPBI 07:55
PROVIDERS: PCP Family Medicine; Referring Provider Family Medicine; Visit Provider Family Medicine
DX: Z12.31 Encounter for screening mammogram for malignant neoplasm of breast (principal)
CPT/HCPCS: 77063; 77067

== ENCOUNTER → 2024-03-17 | Outpatient (CLI) | payer OTHER, SELFPAY ==
[2024-03-17 14:04] LABS: Bacteria 0 SEEN /hpf (None Seen); Mucous, Urine 0 SEEN /hpf (<or=2+); Red Blood Cells-Urine 0 SEEN /hpf (0-5); Squamous Epithelial Cells - UA 0 SEEN /hpf (5-10)
[2024-03-17 15:05] LABS: Color, Urine Yellow (Yellow); Glucose, Dipstick Normal (Normal); Ketone-Dipstick Negative (Negative); Leukocyte Esterase-Dipstick Negative /ul (Negative); Nitrite-Dipstick Negative (Negative); Occult Blood-Urine 10 /ul (Negative); Protein-Dipstick Negative (Negative); Urine Bilirubin Dipstick Negative (Negative); Urine Clarity Clear (Clear); Urine Urobilinogen Normal (Normal)
[2024-03-17 15:12] LABS: White Blood Cells 0-5 SEEN /hpf (0-5)
[2024-03-17 15:19] LABS: Erythrocyte Sedimentation Rate 0 mm/hr (0-30)
[2024-03-17 15:21] LABS: Absolute Neutrophil Count 3.4 X10^3/uL (2.0-7.7); Basophil# 0.06 X10^3/uL; Basophil% 0.9 % (0-1); Eosinophil# 0.12 X10^3/uL; Eosinophils% 1.8 % (0-5); Hematocrit 42.7 % (37-47); Hemoglobin 14.2 g/dL (12.0-15.0); Lymphocyte % 40.1 % (19-41); Mean Corp Hgb Conc 33.3 g/dL (32-36); Mean Corpuscular Volume 93.2 fL (81-99); Mean Platelet Vol. 9.8 fl (6.2-12.0); Monocyte# 0.45 X10^3/uL; Monocyte% 6.7 % (0-10); NRBC Flagged by Analyzer 0 % (0-5); Neutrophil # 3.39 X10^3/uL (2.7-7.7); Neutrophil % 50.2 % (47-70); Platelet Count 302 K/mm3 (150-450); RBC Distribution Width CV 12.3 % (11.6-14.6); RBC Distribution Width SD 42.5 fl (35.1-43.9); Red Blood Count 4.58 M/mm3 (4.2-5.4); White Blood Count 6.7 K/mm3 (4.4-11.0)
[2024-03-17 15:39] LABS: AST(SGOT) 19 U/L (15-37); Alanine Aminotransfer ALT/SGPT 18 U/L (13-56); BUN 13 mg/dL (7-18); CRP < 2.90 mg/L (0.0-3.0); Creatinine, Serum 0.94 mg/dL (0.55-1.02); EST Glomerular Filtration Rate 69 mL/min (>60); Est Glom Filt Rate - Afr Amer 84 mL/min (>60)
[2024-03-19 04:07] LABS: Complement C3 96 mg/dL (82-167)
[2024-03-21 13:07] LABS: Anti-dsDNA Ab 1 IU/mL (0-9)
== END | disposition home or self-care (01) ==
LOC: LAB 13:48
PROVIDERS: PCP Family Medicine; Referring Provider Internal Medicine Rheumatology; Visit Provider Internal Medicine Rheumatology
DX: M32.10 Systemic lupus erythematosus, organ or system involvement unspecified (principal); Z79.899 Other long term (current) drug therapy
CPT/HCPCS: 36415; 81001; 82565; 84450; 84460; 84520; 85025; 85652; 86140; 86160; 86225

== ENCOUNTER → 2024-11-17 | Outpatient (CLI) | payer OTHER, SELFPAY ==
[2024-11-17 12:26] LABS: Erythrocyte Sedimentation Rate 1 mm/hr (0-30)
[2024-11-17 12:29] LABS: Absolute Lymphocyte Count 2.56 X10^3/uL (0.83-4.51); Absolute Neutrophil Count 3.8 X10^3/uL (2.0-7.7); Basophil# 0.05 X10^3/uL; Basophil% 0.7 % (0-1); Eosinophil# 0.08 X10^3/uL; Eosinophils% 1.2 % (0-5); Hematocrit 43.1 % (37-47); Hemoglobin 14.4 g/dL (12.0-15.0); Lymphocyte # 2.56 X10^3/ul (0.83-4.51); Lymphocyte % 37.1 % (19-41); Mean Corp Hgb Conc 33.4 g/dL (32-36); Mean Corpuscular Hgb 30.7 pg (27.0-32.0); Mean Corpuscular Volume 91.9 fL (81-99); Monocyte# 0.43 X10^3/uL; Monocyte% 6.2 % (0-10); NRBC Flagged by Analyzer 0 % (0-5); Neutrophil # 3.76 X10^3/uL (2.7-7.7); Neutrophil % 54.5 % (47-70); Platelet Count 338 K/mm3 (150-450); RBC Distribution Width CV 12.5 % (11.6-14.6); RBC Distribution Width SD 41.7 fl (35.1-43.9); Red Blood Count 4.69 M/mm3 (4.2-5.4); White Blood Count 6.9 K/mm3 (4.4-11.0)
[2024-11-17 13:08] LABS: ALB/GLOB Ratio 1.1 RATIO (0.9-2.4); AST(SGOT) 16 U/L (15-37); Alanine Aminotransfer ALT/SGPT 26 U/L (13-56); Albumin, Serum 3.8 g/dL (3.2-5.0); Alkaline Phosphatase 50 U/L (45-117); Anion Gap 7 (5-15); BUN 9 mg/dL (7-18); BUN/Creat Ratio 9.7 RATIO (10-20); CRP < 2.90 mg/L (0.0-3.0); Calcium,Total 9.4 mg/dL (8.5-10.1); Chloride 107 mmol/L (98-107); Creatinine, Serum 0.93 mg/dL (0.55-1.02); EST Glomerular Filtration Rate 70 mL/min (>60); Est Glom Filt Rate - Afr Amer 85 mL/min (>60); Globulin 3.6 g/dL (2.2-4.2); Glucose 85 mg/dL (74-106); Potassium 3.7 mmol/L (3.5-5.1); Protein, Total 7.4 g/dL (6.4-8.2); Sodium Level 138 mmol/L (136-145)
[2024-11-18 12:08] LABS: ANTINUCLEAR ANTIBODIES DIRECT Negative (Negative)
[2024-11-18 14:08] LABS: PROEL- A/G Ratio 1.2 (0.7-1.7); PROEL- Albumin 3.9 g/dL (2.9-4.4); PROEL- Alpha-1 Globulin 0.2 g/dL (0.0-0.4); PROEL- Alpha-2 Globulin 0.8 g/dL (0.4-1.0); PROEL- Beta Globulin 1.2 g/dL (0.7-1.3); PROEL- Globulin, Total 3.3 g/dL (2.2-3.9); PROEL- TOTAL PROTEIN 7.2 g/dL (6.0-8.5); PROEL-M-Spike Not Observed g/dL (Not Observed)
== END | disposition home or self-care (01) ==
LOC: MFPLAB 09:54
PROVIDERS: PCP Family Medicine; Referring Provider Family Medicine; Visit Provider Family Medicine
DX: M32.9 Systemic lupus erythematosus, unspecified (principal)
CPT/HCPCS: 36415; 80053; 84165; 84443; 85025; 85652; 86038; 86140

== ENCOUNTER → 2025-02-17 | Outpatient (CLI) | payer OTHER, SELFPAY ==
[2025-02-17 08:25] LABS: Bacteria 0 SEEN /hpf (None Seen); Mucous, Urine 0 SEEN /hpf (<or=2+); Red Blood Cells-Urine 0 SEEN /hpf (0-5); White Blood Cells 0 SEEN /hpf (0-5)
[2025-02-17 10:30] LABS: Erythrocyte Sedimentation Rate 1 mm/hr (0-30)
[2025-02-17 10:33] LABS: Color, Urine Yellow (Yellow); Glucose, Dipstick Normal (Normal); Ketone-Dipstick Negative (Negative); Leukocyte Esterase-Dipstick Negative /ul (Negative); Nitrite-Dipstick Negative (Negative); Occult Blood-Urine Negative /ul (Negative); Protein-Dipstick Negative (Negative); Specific Gravity, Urine 1.005 (1.002-1.030); Urine Bilirubin Dipstick Negative (Negative); Urine Clarity Clear (Clear); Urine Urobilinogen Normal (Normal)
[2025-02-17 10:40] LABS: Squamous Epithelial Cells - UA 0-5 SEEN /hpf (5-10)
[2025-02-17 10:56] LABS: AST(SGOT) 14 U/L (<=31); Alanine Aminotransfer ALT/SGPT 12 U/L (<=34); BUN 10 mg/dL (4-19); Creatinine, Serum 0.93 mg/dL (0.70-1.20); EST Glomerular Filtration Rate 78 (>60)
[2025-02-17 11:12] LABS: CRP < 3.00 mg/L (0.0-3.0)
[2025-02-17 14:08] LABS: Absolute Lymphocyte Count 2.44 X10^3/uL (0.83-4.51); Absolute Neutrophil Count 4.7 X10^3/uL (2.0-7.7); Basophil# 0.06 X10^3/uL; Basophil% 0.8 % (0-1); Eosinophil# 0.12 X10^3/uL; Eosinophils% 1.5 % (0-5); Hematocrit 42.5 % (37-47); Hemoglobin 14.2 g/dL (12.0-15.0); Lymphocyte # 2.44 X10^3/ul (0.83-4.51); Lymphocyte % 30.9 % (19-41); Mean Corp Hgb Conc 33.4 g/dL (32-36); Mean Corpuscular Hgb 31.1 pg (27.0-32.0); Mean Corpuscular Volume 93.2 fL (81-99); Mean Platelet Vol. 9.9 fl (6.2-12.0); Monocyte# 0.59 X10^3/uL; Monocyte% 7.5 % (0-10); NRBC Flagged by Analyzer 0 % (0-5); Neutrophil # 4.67 X10^3/uL (2.7-7.7); Neutrophil % 59.2 % (47-70); Platelet Count 311 K/mm3 (150-450); RBC Distribution Width CV 12.6 % (11.6-14.6); RBC Distribution Width SD 43.4 fl (35.1-43.9); Red Blood Count 4.56 M/mm3 (4.2-5.4); White Blood Count 7.9 K/mm3 (4.4-11.0)
[2025-02-18 09:08] LABS: Complement C3 95 mg/dL (82-167)
== END | disposition home or self-care (01) ==
LOC: MTLAB 08:17
PROVIDERS: PCP Family Medicine; Referring Provider Internal Medicine Rheumatology; Visit Provider Internal Medicine Rheumatology
DX: M32.10 Systemic lupus erythematosus, organ or system involvement unspecified (principal); Z79.899 Other long term (current) drug therapy
CPT/HCPCS: 36415; 81001; 82565; 84450; 84460; 84520; 85025; 85652; 86140; 86160

== ENCOUNTER → 2025-06-22 | Outpatient (CLI) | payer OTHER, SELFPAY ==
--- NOTE | 2025-06-22 14:49 | RAD_ITS ---
PROCEDURE: CHEST PA AND LATERAL 06/22/2025 REASON FOR EXAM: ONGOING BRONCHITIS TECHNIQUE: CHEST PA AND LATERAL COMPARISON: Chest x-ray 06/30/2023 FINDINGS: Heart: The heart size is normal. Mediastinum: The mediastinal contour is unremarkable. Lungs: Mild bibasilar atelectasis. Bones: Degenerative changes of visualized spine. Other: None RAD/Chest PA and Lateral IMPRESSION: NO ACUTE FINDINGS. Reading Location: [id number]
== END | disposition home or self-care (01) ==
LOC: MTRAD 14:47
PROVIDERS: PCP Family Medicine; Referring Provider Family Medicine; Visit Provider Family Medicine
DX: J40 Bronchitis, not specified as acute or chronic (principal)
CPT/HCPCS: 71046

== ENCOUNTER → 2025-10-09 | Outpatient (CLI) | payer OTHER, SELFPAY ==
[2025-10-09 16:33] LABS: Mucous, Urine 0 SEEN /hpf (<or=2+); Red Blood Cells-Urine 0 SEEN /hpf (0-5); Squamous Epithelial Cells - UA 0 SEEN /hpf (5-10)
[2025-10-09 17:40] LABS: Hematocrit 43.4 % (37-47); Hemoglobin 14.7 g/dL (12.0-15.0); Immature Granulocytes Count 0.010 X10^3/uL (0.0-0.0); Mean Corp Hgb Conc 33.9 g/dL (32-36); Mean Corpuscular Volume 90.6 fL (81-99); Mean Platelet Vol. 9.9 fl (6.2-12.0); NRBC Flagged by Analyzer 0 % (0-5); Platelet Count 337 K/mm3 (150-450); RBC Distribution Width CV 12.3 % (11.6-14.6); RBC Distribution Width SD 40.7 fl (35.1-43.9); Red Blood Count 4.79 M/mm3 (4.2-5.4); White Blood Count 6.2 K/mm3 (4.4-11.0)
[2025-10-09 17:41] LABS: Color, Urine Yellow (Yellow); Glucose, Dipstick Normal (Normal); Ketone-Dipstick Negative (Negative); Leukocyte Esterase-Dipstick Negative /ul (Negative); Nitrite-Dipstick Negative (Negative); Occult Blood-Urine Negative /ul (Negative); Protein-Dipstick Negative (Negative); Specific Gravity, Urine 1.005 (1.002-1.030); Urine Bilirubin Dipstick Negative (Negative)
[2025-10-09 18:14] LABS: AST(SGOT) 15 U/L (<=31); Alanine Aminotransfer ALT/SGPT 11 U/L (<=34); Albumin, Serum 4.4 g/dL (3.5-5.0); Alkaline Phosphatase 56 U/L (35-104); Anion Gap 13 (5-15); BUN 11 mg/dL (4-19); BUN/Creat Ratio 11.4 RATIO (10-20); Calcium,Total 8.9 mg/dL (7.6-11.0); Carbon Dioxide 18.7 mmol/L (21.0-32.0); Chloride 107 mmol/L (98-108); Globulin 2.9 g/dL (2.2-4.2); Glucose 85 mg/dL (70-99); Potassium 4.0 mmol/L (3.3-5.1)
[2025-10-09 18:16] LABS: CRP < 3.00 mg/L (0.0-3.0)
[2025-10-11 15:08] LABS: Anti-dsDNA Ab 1 IU/mL (0-9)
== END | disposition home or self-care (01) ==
LOC: MFPLAB 16:29
PROVIDERS: PCP Family Medicine; Visit Provider Family Medicine
DX: M32.9 Systemic lupus erythematosus, unspecified (principal)
CPT/HCPCS: 36415; 80053; 81001; 85025; 85652; 86140; 86160; 86225; 87086; 87088

== ENCOUNTER → 2025-10-14 | Outpatient (CLI) | payer OTHER, SELFPAY ==
--- OUTSIDE RECORDS SUMMARY | 2025-10-14 10:00 | XMS RPT_ITS | CCD ---
Author Organization [facility] Care Team Providers Care Business Dean Name Role Phone REFERRING, KEVIN BLAIR ID Unavailable Unavailable LITO MANRIQUEZ Unavailable Unavailable ABIMBOLA CAVAZOS Unavailable Unavailable FLACO LINCOLN, VERONICA Gamez Attending Unavailable SAMUEL LINCOLN, ABIMBOLA Guevara Primary Care Unavailable FLACO LINCOLN, VERONICA Gamez Attending Unavailable SAMUEL LINCOLN, ABIMBOLA Guevara Primary Care Unavailable FLACO LINCOLN, VERONICA Gamez Attending Unavailable SAMUEL LINCOLN, ABIMBOLA A Primary Care Unavailable ABIMBOLA CAVAZOS Consulting Unavailable ABIMBOLA CAVAZOS Referring Unavailable COLIN BARR DO Admitting Unavailable COLIN BARR DO Primary Care Unavailable COLIN BARR DO Attending Unavailable PROVIDER, UNKNOWN Consulting Unavailable CLAUDIO PAREKH Admitting Unavailable JACLAUDIO MAIN F Primary Care Unavailable CLAUDIO PAREKH Attending Unavailable Abimbola Cavazos MD Primary Care Provider Abimbola Cavazos MD Primary Care Provider Dr. Abimbola Cavazos MD Primary Care Provider Dr. Abimbola Cavazos MD Attending Provider Dr. Abimbola Cavazos MD Referring Provider VERONICA SAM MD Attending Provider VERONICA SAM MD Referring Provider Dr. Abimbola Cavazos MD Primary Care Provider Dr. Abimbola Cavazos MD Referring Provider Jed Rosales Attending Provider ABIMBOLA CAVAZOS Primary Care Unavailable KUSH MONTGOMERY Attending Unavailable ABIMBOLA CAVAZOS Primary Care Unavailable Dr. Abimbola Cavazos MD Primary Care Provider Dr. Abimbola Cavazos MD Attending Provider Abimbola Cavazos Attending Unavailable Cavazos, Abimbola Referring Unavailable Cavazos, Abimbola Primary Care Unavailable VERONICA SAM Attending Unavailable VERONICA SAM Referring Unavailable Cavazos, Abimbola Primary Care Unavailable Cavazos, Abimbola Primary Care Unavailable Abimbola Cavazos Attending Unavailable Cavazos, Abimbola Referring Unavailable Cavazos, Abimbloa Referring Unavailable Cavazos, Abimbola Primary Care Unavailable Jed Rosales Attending Unavailable Allergies Allergy Classification Reported Allergen(s) Allergy Type Date of Onset Reaction(s) Facility (13 sources) levoFLOXacin; Translations: [LEVOFLOXACIN] Drug Allergy 6 Mental Status Change [facility] (1 source) Acetaminophen / oxyCODONE Drug Allergy [facility] Repository (4 sources) Acetaminophen / oxyCODONE; Translations: [OXYCODONE-ACETAM INOPHEN] Drug Allergy 3 Hives [facility] Work Phone: (4 sources) NITROFURANTOIN, MACROCRYSTALS / Nitrofurantoin, Monohydrate; Translations: [NITROFURANTOIN MONOHYD/M-CRYST] Drug Allergy 4 GI Upset [facility] (2 sources) Sulfonamides (Antibiotic) Propensity to adverse reactions 5 Nausea [facility] (1 source) levoFLOXacin Drug Allergy 5 [facility] Repository (1 source) Sulfonamides (Antibiotic) Drug allergy (disorder) 5 [facility] Repository Medications Current Medications Medication Drug Class(es) Dates Sig (Normalized) Sig (Original) [id number] 200 actuat albuterol 0.09 mg/actuat metered dose inhaler (4 sources) beta2-Adrenergic Agonist Start: 05-22-2015 End: 09-16-2025 take 2 puff(s) by inhalation every four hours as needed for cough albuterol HFA (PROVENTIL HFA, VENTOLIN HFA) 90 mcg/actuation inhaler Inhale 2 puffs as instructed every 4 hours as needed for wheezing/shortness of breath (Cough). 1 each 3 06/18/2025 09/16/2025 Active Comment on above: Inhale 2 Puffs as in structed every 4 hours as needed. amoxicillin 80 mg/ml / clavulanate 11.4 mg/ml oral suspension (1 source) Penicillin-class Antibacterial Start: 06-25-2023 End: 07-02-2023 take 11 mL by mouth twice daily amoxicillin-clavulan ate (AUGMENTIN) 400-57 mg/5 mL suspension Indications: Sinobronchitis Take 11 mL by mouth twice daily for 7 days. 154 mL 0 06/25/2023 07/02/2023 Active Comment on above: Take 11 mL by mouth twice daily for 7 days. aspirin 81 mg chewable tablet (12 sources) Platelet Aggregation Inhibitor, Nonsteroidal Anti-inflammatory Drug Start: 12-01-2013 take 1 tablet by mouth once daily Aspirin 81 MG tablet,chewable Active 81 mg PO DAILY December 01, 2013 1:00am take 1 tablet by mouth once stefan y aspirin, enteric coated (ASPIRIN, ENTERIC COATED) 81 mg EC tablet Take 81 mg by mouth once daily. Active Comment on above: Take 81 mg by mouth once daily. busPIRone hydrochloride 10 mg oral tablet (12 sources) Start: 12-01-2013 take 1 tablet by mouth twice daily Buspirone 10 MG tablet Active 10 mg PO TWICE A DAY December 01, 2013 1:00am Comment on above: twice daily. doxycycline hyclate 100 mg oral capsule (2 sources) Tetracycline-cla ss Drug Start: 06-18-2025 End: 06-25-2025 take 1 capsule by mouth once daily doxycycline hyclate (VIBRAMYCIN) 100 mg capsule Take 1 capsule by mouth once daily for 7 days. 7 capsule 06/18/2025 06/25/2025 Active Start: 12-07-2024 End: 12-14-2024 take 1 tablet by mouth twice daily doxycycline (VIBRA-TABS) 100 mg tablet Indications: Rhinosinusitis Take 1 tablet by mouth two times a day for 7 days. 14 tablet 12/07/2024 12/14/2024 Active L-METHYLFOLATE 7.5 mg tab (3 sources) take 1 tablet by gil th once daily L-METHYLFOLATE 7.5 mg tab Take 1 tablet by mouth once daily. Active take 1 tablet by mouth once stefan y L-METHYLFOLATE 7.5 mg tab Take 1 tablet by mouth once daily. 0 Active Comment on above: Take 1 tablet by gil th once daily. LORazepam 0.5 mg oral tablet (12 sources) Benzodiazepine Start: 4 take 1 tablet by mouth three times daily as needed for anxiety Lorazepam 0.5 MG tablet Active 0.5 mg PO 3 TIMES DAILY NEEDED as needed for Anxiety July 30, 2017 12:00am Comment on above: Take 0.5 mg by mouth as needed. meloxicam 7.5 mg oral tablet (12 sources) Nonsteroidal Anti-inflammatory Drug Start: 9 Meloxicam 7.5 MG tablet Active 7.5 mg PO NEEDED as needed for Pain June 17, 2019 12:00am take 1 tablet by mouth once stefan y meloxicam (MOBIC) 15 mg tablet Take 15 mg by mouth once daily. Active Comment on above: Take 15 mg by mouth once daily. methylPREDNISolone 4 mg oral tablet (10 sources) Corticosteroid Start: 2024 take 1 tablet by mouth once Methylprednisolone (Medrol ([facility]ell)) 4 mg tablets,dose pack Active 0 PO per package directions 21 0 June 14, 2025 12:00am PO PER PKG DIR Start: 11-17-2017 End: 11-22-2017 take 1 tablet by mouth once Methylprednisolone (Medrol (Cornell)) 4 mg tablets,dose pack Discontinued 4 mg PO per package directions 21 5 0 November 17, 2017 1:00am November 21, 2017 1:00am November 22, 2017 1:10am Acute bronchitis, unspecified norethindrone 0.35 mg oral tablet (3 sources) Start: 02-25-2017 take 1 tablet by mouth once daily Norethindrone, Contraceptive, (ORTHO MICRONOR) 0.35 mg tablet Take 1 tablet by mouth once daily. 3 Package 02/25/2017 Active Comment on above: Take 1 tablet by gil once daily. PARoxetine hydrochloride 10 mg oral tablet (12 sources) Serotonin Reuptake Inhibitor Start: 12-01-2013 take 1 tablet by mouth twice daily Paroxetine Hcl 10 MG tablet Active 10 mg PO TWICE A DAY December 01, 2013 1:00am Comment on above: twice daily. prednisoLONE 3 mg/ml oral solution (1 source) Corticosteroid Start: 06-25-2023 End: 06-30-2023 take 14 mL by mouth once daily prednisoLONE (PRELONE) 15 mg/5 mL syrup Indications: Sinobronchitis Take 14 mL by mouth once daily for 5 days. 70 mL 0 06/25/2023 06/30/2023 Active Comment on above: Take 14 mL by mouth once daily for 5 days. predniSONE 20 mg oral tablet (1 source) Start: 06-18-2025 End: 06-25-2025 take 2 tablets by mouth once daily predniSONE (DELTASONE) 20 mg tablet Take 2 tablets by mouth once daily for 7 days. 14 tablet 06/18/2025 06/25/2025 Active temazepam 30 mg oral capsule (2 sources) Benzodiazepine Start: 11-17-2024 take 1 capsule by mouth at bedtime as needed temazepam (RESTORIL) 30 mg cap TAKE 1 CAPSULE BY MOUTH BEFORE BEDTIME NEEDED FOR SEVERE INSOMNIA. 11/17/2024 Active topiramate 50 mg oral tablet (4 sources) Start: 06-14-2025 Topiramate 50 mg tablet Active 75 mg PO daily June 14, 2025 12:00am Start: 11-17-2024 topiramate (TO PAMAX) 25 mg tablet TAKE TABLET BY MOUTH DIRECTED IN EVENING FOR 7 DAYS THEN INCREASE TO TWO TABLETS. 11/17/2024 Active Completed/Discontinued Medications Medication Drug Class(es) Dates Sig (Normalized) Sig (Original) amoxicillin 500 mg oral capsule (9 sources) Penicillin-class Antibacterial Start: 03-02-2019 End: 03-12-2019 take 2 capsules by mouth twice daily Amoxicillin 500 mg capsule Discontinued 1000 mg PO TWICE A DAY 40 10 March 02, 2019 12:00am March 11, 2019 12:00am March 12, 2019 12:08am Start: 03-02-2019 End: 03-12-2019 take 1000 mg by mouth twice daily Amoxicillin Discontinued 1000 MG PO TWICE A DAY 40 March 01, 2019 11:00pm March 11, 2019 11:08pm azithromycin 250 mg oral tablet (9 sources) Macrolide Antimicrobial Start: 11-17-2017 End: 11-22-2017 Azithromycin 250 mg tablet Discontinued 250 mg PO daily 6 5 0 November 17, 2017 1:00am November 21, 2017 1:00am November 22, 2017 1:09am Acute bronchitis, unspecified Take 2 tabs once on day one. Take one tablet next 4 days docusate sodium 100 mg oral capsule (9 sources) Start: 08-07-2017 End: 11-17-2017 take 1 capsule by mouth twice daily as needed for constipation Docusate Sodium 100 MG capsule Discontinued 100 mg PO TWICE A DAY as needed for Constipation 60 0 August 07, 2017 12:17pm November 17, 2017 10:24am hydroxychloroquine sulfate 200 mg oral tablet (12 sources) Antimalarial, Antirheumatic Agent Start: 12-01-2013 End: 06-14-2025 Hydroxychloroquine 200 MG tablet Discontinued 300 mg PO AT BEDTIME December 01, 2013 1:00am June 14, 2025 1:12pm Start: 12-01-2013 take 300 mg by mouth at bedtime Hydroxychloroquine Active 300 MG PO AT BEDTIME December 01, 2013 12:00am Comment on above: 300 mg once daily. ibuprofen 800 mg oral tablet (9 sources) Nonsteroidal Anti-inflammatory Drug Start: 08-07-20 End: 11-17-19 take 1 tablet by mouth three times daily as needed for pain Ibuprofen 800 MG tablet Discontinued 800 mg PO THREE TIMES A DAY as needed for Pain 30 0 August 07, 2017 12:17pm November 17, 2017 10:24am traMADol hydrochloride 50 mg oral tablet (9 sources) Opioid Agonist Start: 08-07-20 End: 11-17-19 Tramadol 50 MG tablet Discontinued 1 - 2 {tbl} PO EVERY 6 HOURS NEEDED as needed for Mod-Severe Pain (-08/18) 30 0 August 07, 2017 12:00am November 17, 2017 10:24am Problems Active Problems Problem Classification Problem Date Documented Da te Episodic/Chronic Abdominal pain (11 sources) Flank pain; Translations: [Unspecified abdominal pain] Onset: 05-25-2012 Resolved: 02-13-2016 06-18-2019 Episodic Acute bronchitis (9 sources) Acute bronchitis; Translations: [Acute bronchitis, unspecified] 11-17-2017 Episodic Asthma (10 sources) Exacerbation of asthma; Translations: [Unspecified asthma with (acute) exacerbation] 11-17-2017 Chronic Benign neoplasm of uterus (11 sources) Uterine leiomyoma; Translations: [Leiomyoma of uterus, unspecified] Onset: 11-18-2010 Resolved: 05-25-2012 08-06-2017 Episodic Chronic obstructive pulmonary disease and bronchiectasis (1 source) Bronchitis, not specified as acute or chronic; Translations: [Bronchitis, not specified as acute or chronic] Onset: 06-30-2025 Episodic Diabetes mellitus without complication (9 sources) Abnormal glucose level; Translations: [Other abnormal glucose] 07-25-2021 Episodic Gastrointestinal hemorrhage (5 sources) Rectal hemorrhage; Translations: [Hemorrhage of anus and rectum] Onset: 02-20-2016 Resolved: 02-20-2016 02-05-2016 Episodic Immunizations and screening for infectious disease (9 sources) Patient encounter status; Translations: [Encounter for screening for COVID-19] 07-31-2021 Episodic Menstrual disorders (11 sources) Menorrhagia; Translations: [Excessive and frequent menstruation with regular cycle] Onset: 07-05-2010 Resolved: 05-25-2012 08-06-2017 Chronic Other nervous system disorders (9 sources) Autonomic nervous system hyperactivity; Translations: [Other disorders of autonomic nervous system] 07-25-2021 Chronic Other upper respiratory infections (11 sources) Sinusitis; Translations: [Chronic sinusitis, unspecified] 03-02-2019 Chronic Other upper respiratory infections (11 sources) Upper respiratory infection; Translations: [Acute upper respiratory infection, unspecified] Onset: 06-18-2025 03-02-2019 Episodic Ovarian cyst (3 sources) Cyst of ovary; Translations: [Unspecified ovarian cyst, unspecified side] 02-05-2016 Episodic Systemic lupus erythematosus and connective tissue disorders (7 sources) Systemic lupus erythematosus, organ or system involvement unspecified; Translations: [Systemic lupus erythematosus] Onset: 10-19-2013 Chronic Unclassified (1 source) Unknown / UNK(Unknown) Onset: 05-06-2017 Past or Other Problems Problem Classification Problem Date Documented Da te Episodic/Chronic Deficiency and other anemia (2 sources) Anemia; Translations: [Anemia, unspecified] Onset: 07-05-2010 Resolved: 05-25-2012 05-25-2012 Episodic Female infertility (2 sources) Female infertility; Translations: [Infertility, female, of unspecified origin] Onset: 07-05-2010 Resolved: 02-13-2016 02-13-2016 Chronic Genitourinary symptoms and ill-defined conditions (3 sources) Increased frequency of urination; Translations: [Frequency of micturition] Onset: 11-05-2011 Resolved: 05-25-2012 12-07-2024 Episodic Malaise and fatigue (2 sources) Fatigue; Translations: [Other fatigue] Onset: 01-14-2013 Resolved: 02-13-2016 02-13-2016 Episodic Other and unspecified benign neoplasm (3 sources) Hemangioma; Translations: [Hemangioma unspecified site] Onset: 08-30-2014 08-30-2014 Episodic Other and unspecified benign neoplasm (3 sources) Hemangioma of liver; Translations: [Hemangioma of intra-abdominal structures] Onset: 08-30-2014 08-30-2014 Episodic Other nervous system disorders (3 sources) Paresthesia; Translations: [Paresthesia of skin] Onset: 03-30-2013 03-30-2013 Episodic Unclassified (1 source) MS Onset: 05-06-2017 Results Test Name Value Interpretation Reference Range Facility Chest PA and Lateralon 06-22 Chest PA and Lateral [facility] [address] [place] [address] [id number] Chest PA and Lateral MR#: [id number] Acct: [id number] Name: EMILIA GALLEGO Rep #: [id number] : 1980 F 45 From: Brian Garcia MD PCP: Dr. Abimbola Cavazos MD Status: [facility] CLI Study: Chest PA and Lateral Date of Exam: 06/22/25 Exam# [id number] Ordering Dr: Abimbola Cavazos MD PROCEDURE: CHEST PA AND LATERAL 06/22/2025 REASON FOR EXAM: ONGOING BRONCHITIS TECHNIQUE: CHEST PA AND LATERAL COMPARISON: Chest x-ray 06/30/2023 FINDINGS: Heart: The heart size is normal. Mediastinum: The mediastinal contour is unremarkable. Lungs: Mild bibasilar atelectasis. Bones: Degenerative changes of visualized spine. Other: None RAD/Chest PA and Lateral IMPRESSION: NO ACUTE FINDINGS. Reading Location: [id number] CC: Dr. Abimbola Cavazos MD Reefer Engineer: Signed Normal [facility] CNOVon 06-18-2025 CNOV Office Visit ([facility]) EMILIA GALLEGO ([id number]) 1980 F Date Time Provider Department 06/18/25 12:30 PM KUSH MONTGOMERY During your visit today, we recorded the following information about you: Temperature Pulse Respiration Blood pressure 98.1 degrees 89/minute 16/minute 114/70 Weight 64.1 kg Kush Montgomery APRN.TUBING SUPERVISOR 06/18/2025 1:34 PM Signed [facility] Subjective Emilia Gallego is a 45 year old female. Patient presents with: Sinus Problem HPI Rhinorrhea: - Persistent rhinorrhea x2 weeks. - Using Sudafed, Amelie, and an unspecified nasal spray prescribed earlier this year. - Denies improvement with current treatments. - Denies recent illness; sister had influenza B in the summer. Cough: - Persistent cough, described as a tickle cough. - Reports chest congestion and productive cough, stating it feels like it's moving in a little bit more. Dyspnea: - Mild wheezing and dyspnea x2 days. Asthma: - History of asthma since childhood. - Last used albuterol inhaler in November. - Has used steroids in the past, which were effective but caused an unpleasant odor. Review of Systems Ears/Nose/Mouth/Throa t: (+) rhinorrhea, (+) sinus pain/pressure Respiratory: (+) productive cough, (+) wheezing, (+) shortness of breath PAST MEDICAL HISTORY[1] PAST SURGICAL HISTORY Procedure Laterality Date CATH AND SALINE/CONTRAST SONOHYSTER/HYSTEROSAL PI 08/05/10 HSG for infertility DELIVERY ONLY 06/11/11 , low transverse at [place] COLONOSCOPY FLX DX W/COLLJ SPEC WHEN PFRMD 02/20/16 Colonoscopy with mac INSERTION OF IUD 07/2015 IUD REMOVAL 01/22 PAST SURGICAL HISTORY OF 01/25/12 Myomectomy; Needs repeat C/Ss in future UNSPECIFIED ORAL SURGERY PROCEDURE, BY REPORT 1999 wisdom teeth removed ALLERGIES Levaquin [Levofloxacin], Macrobid [Nitrofurantoin Monohyd/M-Cryst], and Percocet [Oxycodone-Acetaminop hen] MEDICATIONS topiramate (TOPAMAX) 25 mg tablet TAKE TABLET BY MOUTH DIRECTED IN EVENING FOR 7 DAYS THEN INCREASE TO TWO TABLETS. temazepam (RESTORIL) 30 mg cap TAKE 1 CAPSULE BY MOUTH BEFORE BEDTIME NEEDED FOR SEVERE INSOMNIA. L-METHYLFOLATE 7.5 mg tab Take 1 tablet by mouth once daily. LORazepam (ATIVAN) 0.5 mg tab Take 0.5 mg by mouth as needed. busPIRone (BUSPAR) 10 mg tablet twice daily. PARoxetine (PAXIL) 10 mg tablet twice daily. aspirin, enteric coated (ASPIRIN, ENTERIC COATED) 81 mg EC tablet Take 81 mg by mouth once daily. doxycycline hyclate (VIBRAMYCIN) 100 mg capsule Take 1 capsule by mouth once daily for 7 days. predniSONE (DELTASONE) 20 mg tablet Take 2 tablets by mouth once daily for 7 days. albuterol HFA (PROVENTIL HFA, VENTOLIN HFA) 90 mcg/actuation inhaler Inhale 2 puffs as instructed every 4 hours as needed for wheezing/shortness of breath (Cough). Norethindrone, Contraceptive, (ORTHO MICRONOR) 0.35 mg tablet Take 1 tablet by mouth once daily. (Patient not taking: Reported on 06/18/2025) hydroxychloroquine (PLAQUENIL) 200 mg tablet 300 mg once daily. (Patient not taking: Reported on 06/18/2025) meloxicam (MOBIC) 15 mg tablet Take 15 mg by mouth once daily. (Patient not taking: Reported on 06/18/2025) FAMILY HISTORY[2] SOCIAL HISTORY[3] Objective BP 114/70 Pulse 89 Temp 36.7 ?C (98.1 ?F) (Tympanic) Resp 16 Wt 64.1 kg (141 lb 5 oz) LMP 01/30/2016 SpO2 99% BMI 24.26 kg/m? Physical Exam Constitutional: General: She is not in acute distress. Appearance: Normal appearance. She is normal weight. She is not ill-appearing or toxic-appearing. HENT: Head: Normocephalic and atraumatic. No right periorbital erythema or left periorbital erythema. Jaw: No trismus, tenderness or swelling. Right Ear: Tympanic membrane, ear canal and external ear normal. Left Ear: Tympanic membrane, ear canal and external ear normal. Nose: Congestion and rhinorrhea present. Right Sinus: Maxillary sinus tenderness and frontal sinus tenderness present. Left Sinus: Maxillary sinus tenderness and frontal sinus tenderness present. Mouth/Throat: Mouth: Mucous membranes are moist. Tongue: No lesions. Palate: No mass and lesions. Pharynx: Uvula midline. Posterior oropharyngeal erythema and postnasal drip present. Tonsils: No tonsillar exudate or tonsillar abscesses. Eyes: Pupils: Pupils are equal, round, and reactive to light. Cardiovascular: Rate and Rhythm: Normal rate and regular rhythm. Pulses: Normal pulses. Heart sounds: Normal heart sounds, S1 normal and S2 normal. Pulmonary: Effort: Pulmonary effort is normal. No respiratory distress. Breath sounds: Wheezing present. No rhonchi or rales. Lymphadenopathy: Cervical: No cervical adenopathy. Neurological: Mental Status: She is alert. { 1. Acute non-recurrent maxillary sinusitis (J01.00) 2. Mild intermittent asthma without complication (HCC) (J45.20) - Persi (more content not included)... Normal [facility] - Microbiology an d Antimicrobial susceptibilityOrdered By: Jed Somers on 06-14-2025 SARS-CoV-2 (COVID-19) RNA ZARA+probe Ql (Unsp spec) Not detected [facility] No Panel InformationOrdered By: Jed Somers on 06-14-2025 Influenza Types A,B Rapid (Clinic) Not detected [facility] Urgent Care Visit Reporton 0 06-14-2025 Urgent Care Visit Report [facility] [address] [place] [address] OFFICE VISIT Date of Service: 06/14/25 MR#: [id number] Acct: [id number] Name: EMILIA GALLEGO Rep #: [id number] : 1980 Provider: MIKAYLA Hall Age/Sex: 45/F Location: [facility] Status: Signed Intake Vital Signs 07/31/21 11:11 06/14/25 13:08 Height 5 ft 5 in 5 ft 4 in Weight: 142 lb 6 oz BMI 24.4 BP 126/82 H Blood Pressure Location Rt brachial Position Sitting Respiration 16 Pulse 70 Pulse Source NIBP Temp 98.2 F Temp Source Oral Pulse Oximetry (%) 98 Oxygen Delivery Method room air Intake Visit Reasons: CONCERN FOR SINUS INFECTION Chief Complaint: cough, congest, drainage, mucus, fatigue Red Mud Thickener Operator Required: No Is patient in pain?: No Allergies Sulfa (Sulfonamide Antibiotics) Adverse Reaction (Mild, Verified 06/14/25 13:10) Nausea levofloxacin (From Levaquin) Adverse Reaction (Verified 06/14/25 13:10) ANXIETY Medications ???Medication ???Instructions ???Recorded ???Confirmed ???Type aspirin 81 mg chewable tablet 81 mg PO DAILY 12/01/13 06/14/25 H istory buspirone 10 mg tablet 10 mg PO BID 12/01/13 06/14/25 His tory paroxetine HCl 10 mg tablet 10 mg PO BID 12/01/13 06/14/25 His tory lorazepam 0.5 mg tablet 0.5 mg PO TID PRN PRN Anxiety 07/1107/31/21 History meloxicam 7.5 mg tablet 7.5 mg PO PRN PRN Pain 06/17/19 History methylprednisolone 4 mg tablets in See Rx Instructions PO PER PKG D IR 06/14/25 06/14/25 Rx a dose pack (Medrol ([facility])) #21 tabs topiramate 50 mg tablet 75 mg PO QDAY 06/14/25 06/14/25 Hi story Is last menstrual period known: No Post menopausal: No Patient : No Have you fallen in the past year?: No Nurse's Note: cough, congest, drainage, mucus, fatigue x 5 days. denies fever, PEREZ, BA. [facility] Medical History Encounter for screening for COVID-19 Abnormal glucose measurement Autonomic hyperactivity Vision problem Lupus Hypoglycemia High blood pressure Calcium deficiency Frequent headaches H/O emotional problems H/O transfusion of whole blood Anemia Lupus Asthma Surgical History H/O: H/O total hysterectomy History of wisdom tooth extraction H/O hysterectomy for benign disease H/O: myomectomy Family History Other Anxiety Arthritis Asthma Autoimmune disease Breast cancer Cancer Depression Diabetes Melanoma Myocardial infarction Osteoporosis Skin cancer Thyroid disorder Social History Smoking Status: Never smoker alcohol intake: current alcohol intake frequency: holidays/special occasions only what type of physical activity do you participate in: walking frequency: daily HPI HPI Chief Complaint: cough, congest, drainage, mucus, fatigue Details: EMILIA GALLEGO, is a 45 F who presents to the office today [facility] for approximately 5 day history of persistent cough, congestion/ runny nose, drainage, mucus, fatigue; no c/o fever, chills, PEREZ, myalgias, nausea, and diarrhea. Patient notes no complaints of chest pain or shortness of breath or dyspnea on exertion. Several close contacts recently dx???d w/ similar URI complaints, including [id number] who was recently diagnosed with influenza B. No vlth-soy-lzyzdki medications have been taken to assist. Non-smoker. No other associated symptoms and no other alleviating/aggravati ng factors. ROS Const Constitutional: No other (As above) Exam Const General: cooperative, healthy appearing and no acute distress Orientation: alert, awake and oriented x3 HENMT Head: normal to inspection Ears: hearing grossly normal bilaterally, external ears normal, TM's normal bilaterally and EAC's normal Nose: external nose normal, nares normal, septum normal and clear nasal discharge Face and sinus: normal facial exam, sinuses nontender and face symmetric Mouth: oral mucosae normal, lip normal, tongue normal and oropharynx normal Throat: posterior oropharynx normal, tonsils normal, uvula midline and no postnasal drainage Eyes General: appearance normal, both eyes and all related structures Neck Neck: normal visual inspection, full ROM, no lymphadenopathy, no meningeal signs and supple Neck mass: No Thyroid: thyroid normal Lymphatic: no lymphadenopathy noted Chest Chest palpation inspection: normal inspection of the chest Resp Effort Inspection: normal respiratory effort, able to speak in complete sentences and no unsolicited cough during today's exam Auscultation: Bilateral: Clear to Auscultation Cardio Palpation: normal PM (more content not included)... Normal [facility] Complement C3on 02-18-2025 COMP C3 95 mg/dL Normal 82-167 [facility] Comment on above: Result Comment: Perf ormed at: - [facility] [address] [id number] Intake Nurse: Claudio Carrion PhD, Phone: [phone] Performed By: #### L 100.0100, L501.4100, L501.4405, L400.0001, L3100.5700, L501.1000, L3100.5800, L501.6710, L3100.5500, L101.9900, L501.1105 #### [facility] [address] [place], [address] Complement C4on 02-18-2025 COMPLEMENT, C4 22 mg/dL Normal 12-38 [facility] Comment on above: Performed By: #### L 100.0100, L501.4100, L501.4405, L400.0001, L3100.5700, L501.1000, L3100.5800, L501.6710, L3100.5500, L101.9900, L501.1105 #### [facility] [address] [place], [address] AST(SGOT)on 02-17-2025 AST [Catalytic activity/Vol] 14 U/L Normal <=31 [facility] Comment on above: Performed By: #### L 100.0100, L501.4100, L501.4405, L400.0001, L3100.5700, L501.1000, L3100.5800, L501.6710, L3100.5500, L101.9900, L501.1105 #### [facility] [address] [place], [address] Absolute lymphocyte countOrd ered By: VERONICA SAM on 02-17-2025 Lymphocytes Auto (Unsp spec) [#/Vol] 2.44 10*3/uL 0.83-4.51 [facility] Absolute neutrophil countOrd ered By: VERONICA SAM on 02-17-2025 Neutrophils (Bld) [#/Vol] 4.7 10*3/uL 2.0-7.7 [facility] Alanine Aminotransferas (SGP T)on 02-17-2025 ALT [Catalytic activity/Vol] 12 U/L Normal <=34 [facility] Comment on above: Performed By: #### L 100.0100, L501.4100, L501.4405, L400.0001, L3100.5700, L501.1000, L3100.5800, L501.6710, L3100.5500, L101.9900, L501.1105 #### [facility] [address] [place], [address] Anti-dsDNA Abon 02-17-2025 ANTI-DNA (DS)AB TNP Normal [facility] Comment on above: Performed By: #### L 100.0100, L501.4100, L501.4405, L400.0001, L3100.5700, L501.1000, L3100.5800, L501.6710, L3100.5500, L101.9900, L501.1105 #### [facility] [address] [place], [place], [id number] Automated lymphocyte count a s percentage of total leukocytesOrdered By: VERONICA SAM on 02-17-2025 Lymphocytes/100 WBC Auto (Unsp spec) 30.9 % 19-41 [facility] BUNon 02-17-2025 Urea nitrogen [Mass/Vol] 10 mg/dL Normal 4-19 [facility] Comment on above: Performed By: #### L 100.0100, L501.4100, L501.4405, L400.0001, L3100.5700, L501.1000, L3100.5800, L501.6710, L3100.5500, L101.9900, L501.1105 #### [facility] [address] [place], [address] Basophil percentageOrdered B y: VERONICA SAM on 02-17-2025 Basophils/100 WBC (Bld) 0.8 % 0-1 [facility] Bilirubin Test strip Ql (U)O rdered By: VERONICA SAM on 02-17-2025 Bilirubin Ql (U) Negative Negative [facility] CBC W/Diff, Automatedon 04- Absolute Lymph 2.44 X10 3/uL Normal 0.83-4.51 [facility] Comment on above: Performed By: #### L 100.0100, L501.4100, L501.4405, L400.0001, L3100.5700, L501.1000, L3100.5800, L501.6710, L3100.5500, L101.9900, L501.1105 #### [facility] [address] [place], [address] Absolute Neut 4.7 X10 3/uL Normal 2.0-7.7 [facility] Comment on above: Performed By: #### L 100.0100, L501.4100, L501.4405, L400.0001, L3100.5700, L501.1000, L3100.5800, L501.6710, L3100.5500, L101.9900, L501.1105 #### [facility] [address] [place], [address] Basophils/100 WBC (Bld) 0.8 % Normal 0-1 [facility] Comment on above: Performed By: #### L 100.0100, L501.4100, L501.4405, L400.0001, L3100.5700, L501.1000, L3100.5800, L501.6710, L3100.5500, L101.9900, L501.1105 #### [facility] [address] [place], [address] Eosinophils/100 WBC (Bld) 1.5 % Normal 0-5 [facility] Comment on above: Performed By: #### L 100.0100, L501.4100, L501.4405, L400.0001, L3100.5700, L501.1000, L3100.5800, L501.6710, L3100.5500, L101.9900, L501.1105 #### [facility] [address] [facility] [place], [place], [phone] Erythrocyte distribution width (RBC) [Ratio] 12.6 % Normal 11.6-14.6 [facility] Comment on above: Performed By: #### L 100.0100, L501.4100, L501.4405, L400.0001, L3100.5700, L501.1000, L3100.5800, L501.6710, L3100.5500, L101.9900, L501.1105 #### [facility] [address] [place], [address] Hematocrit (Bld) [Volume fraction] 42.5 % Normal 37-47 [facility] Comment on above: Performed By: #### L 100.0100, L501.4100, L501.4405, L400.0001, L3100.5700, L501.1000, L3100.5800, L501.6710, L3100.5500, L101.9900, L501.1105 #### [facility] [address] [facility] [place], [address] Hemoglobin (Bld) [Mass/Vol] 14.2 g/dL Normal 12.0-15.0 [facility] Comment on above: Performed By: #### L 100.0100, L501.4100, L501.4405, L400.0001, L3100.5700, L501.1000, L3100.5800, L501.6710, L3100.5500, L101.9900, L501.1105 #### [facility] [address] [facility] [place], [place], [id number] IG% 0.100 Normal 0.0-0.9 [facility] Comment on above: Result Comment: IG% - Immature Granulocytes (promyelocytes, myelocytes and metamyelocytes) > 1% indicates that a LEFT SHIFT is Present. Performed By: #### L 100.0100, L501.4100, L501.4405, L400.0001, L3100.5700, L501.1000, L3100.5800, L501.6710, L3100.5500, L101.9900, L501.1105 #### [facility] [address] [place], [address] Lymphocytes/100 WBC (Bld) 30.9 % Normal 19-41 [facility] Comment on above: Performed By: #### L 100.0100, L501.4100, L501.4405, L400.0001, L3100.5700, L501.1000, L3100.5800, L501.6710, L3100.5500, L101.9900, L501.1105 #### [facility] [address] [facility], [address] MCH (RBC) [Entitic mass] 31.1 pg Normal 27.0-32.0 [facility] Comment on above: Performed By: #### L 100.0100, L501.4100, L501.4405, L400.0001, L3100.5700, L501.1000, L3100.5800, L501.6710, L3100.5500, L101.9900, L501.1105 #### [facility] [address] [place], [address] MCHC (RBC) [Mass/Vol] 33.4 g/dL Normal 32-36 [facility] Comment on above: Performed By: #### L 100.0100, L501.4100, L501.4405, L400.0001, L3100.5700, L501.1000, L3100.5800, L501.6710, L3100.5500, L101.9900, L501.1105 #### [facility] [address] [facility] [place], [address] MCV (RBC) [Entitic vol] 93.2 fL Normal 81-99 [facility] Comment on above: Performed By: #### L 100.0100, L501.4100, L501.4405, L400.0001, L3100.5700, L501.1000, L3100.5800, L501.6710, L3100.5500, L101.9900, L501.1105 #### [facility] [address] [facility] [place], [address] Monocytes/100 WBC (Bld) 7.5 % Normal 0-10 [facility] Comment on above: Performed By: #### L 100.0100, L501.4100, L501.4405, L400.0001, L3100.5700, L501.1000, L3100.5800, L501.6710, L3100.5500, L101.9900, L501.1105 #### [facility] [address] [place], [address] Neutrophils/100 WBC (Bld) 59.2 % Normal 47-70 [facility] Comment on above: Performed By: #### L 100.0100, L501.4100, L501.4405, L400.0001, L3100.5700, L501.1000, L3100.5800, L501.6710, L3100.5500, L101.9900, L501.1105 #### [facility] [address] [place], [address] Nucleated RBC (Bld) [#/Vol] 0 10*3/uL Normal 0-5 [facility] Comment on above: Performed By: #### L 100.0100, L501.4100, L501.4405, L400.0001, L3100.5700, L501.1000, L3100.5800, L501.6710, L3100.5500, L101.9900, L501.1105 #### [facility] [address] [facility] [place], [address] Platelet mean volume (Bld) [Entitic vol] 9.9 fL Normal 6.2-12.0 [facility] Comment on above: Performed By: #### L 100.0100, L501.4100, L501.4405, L400.0001, L3100.5700, L501.1000, L3100.5800, L501.6710, L3100.5500, L101.9900, L501.1105 #### [facility] [address] [place], [address] Platelets (Bld) [#/Vol] 311 10*3/uL Normal 150-450 [facility] Comment on above: Performed By: #### L 100.0100, L501.4100, L501.4405, L400.0001, L3100.5700, L501.1000, L3100.5800, L501.6710, L3100.5500, L101.9900, L501.1105 #### [facility] [address] [place], [address] RBC (Bld) [#/Vol] 4.56 10*6/uL Normal 4.2-5.4 [facility] Comment on above: Performed By: #### L 100.0100, L501.4100, L501.4405, L400.0001, L3100.5700, L501.1000, L3100.5800, L501.6710, L3100.5500, L101.9900, L501.1105 #### [facility] [address] [place], [place], [id number] (594) RDW SD 43.4 fl Normal 35.1-43.9 [facility] Comment on above: Performed By: #### L 100.0100, L501.4100, L501.4405, L400.0001, L3100.5700, L501.1000, L3100.5800, L501.6710, L3100.5500, L101.9900, L501.1105 #### [facility] [address] [place], [address] WBC (Bld) [#/Vol] 7.9 10*3/uL Normal 4.4-11.0 [facility] Comment on above: Performed By: #### L 100.0100, L501.4100, L501.4405, L400.0001, L3100.5700, L501.1000, L3100.5800, L501.6710, L3100.5500, L101.9900, L501.1105 #### [facility] [address] [place], [place], [phone] CRPon 02-17-2025 C-REACTIVE PROT < 3.00 Normal 0.0-3.0 [facility] Comment on above: Performed By: #### L 100.0100, L501.4100, L501.4405, L400.0001, L3100.5700, L501.1000, L3100.5800, L501.6710, L3100.5500, L101.9900, L501.1105 #### [facility] [address] [place], [address] CRP [Mass/Vol]Ordered By: RA KAT SAM on 02-17-2025 C-Reactive Protein Extended Range < 3.00 mg/L 0.0-3.0 [facility] Complement C3 assayOrdered B y: VERONICA SAM on 02-17-2025 Complement C3 95 mg/dL 82-167 [facility] Comment on above: Performed at: - [place] [id number] Director: Claudio Carrion PhD, Phone: [phone] Complement C4 [Mass/Vol]Orde red By: VERONICA SAM on 02-17-2025 Complement C4 22 mg/dL 12-38 [facility] DNA double strand Ab Qn (S)O rdered By: VERONICA SAM on 02-17-2025 Anti-Double Strand DNA Antibody TNP [facility] Comment on above: Test not performed Eosinophil percentageOrdered By: VERONICA SAM on 02-17-2025 Eosinophils/100 WBC (Bld) 1.5 % 0-5 [facility] Epithelial cells.squamous LM Ql (Urine sed)Ordered By: VERONICA SAM on 02-17-2025 Epithelial cells.squamous LM.HPF (Urine sed) [#/Area] 0 /[HPF] 5-10 [facility] Erythrocyte Sed Rateon 02-17 SED RATE 1 mm/hr Normal 0-30 [facility] Comment on above: Performed By: #### L 100.0100, L501.4100, L501.4405, L400.0001, L3100.5700, L501.1000, L3100.5800, L501.6710, L3100.5500, L101.9900, L501.1105 #### [facility] [address] [place], [place], [id number] Erythrocyte distribution wid th (RBC) [Ratio]Ordered By: VERONICA SAM on 02-17-2025 Erythrocyte distribution width (RBC) [Entitic vol] 43.4 fL 35.1-43.9 [facility] Erythrocyte distribution wid th ratioOrdered By: VERONICA SAM on 02-17-2025 Erythrocyte distribution width (RBC) [Ratio] 12.6 % 11.6-14.6 [facility] Erythrocyte distribution wid th standard deviationOrdered By: VERONICA SAM on 02-17-2025 Erythrocyte distribution width (RBC) [Ratio] 43.4 fl 35.1-43.9 [facility] Erythrocyte sedimentation ra teOrdered By: VERONICA SAM on 02-17-2025 ESR (Bld) [Velocity] 1 mm/h 0-30 [facility] GFR/1.73 sq M.predicted marcella g non-blacks MDRD (S/P/Bld) [Vol rate/Area]Ordered By: VERONICA SAM on 02-17-2025 Estimated GFR (MDRD) Non-Af Amer 78 >60 [facility] Comment on above: mL/min/1.73m2 CKD-EP I Creatinine Equation (2020) Glomerular filtration rate ( GFR) estimation/1.73 sq m using serum, plasma, or whole bOrdered By: VERONICA SAM on 02-17-2025 GFR/1.73 sq M.predicted among non-blacks MDRD (S/P/Bld) [Vol rate/Area] 78 mL/min/{1.73_m2} >60 [place] Comment on above: mL/min/1.73m2 CKD-EP I Creatinine Equation (2020) Glucose Ql (U)Ordered By: RA KAT SAM on 02-17-2025 Urine Glucose (UA) Normal mg/dl Normal [facility] Hematocrit Auto (Bld) [Volum e fraction]Ordered By: VERONICA SAM on 02-17-2025 Hematocrit (Bld) [Volume fraction] 42.5 % 37-47 [facility] Hemoglobin measurementOrdere d By: VERONICA SAM on 02-17-2025 Hemoglobin (Bld) [Mass/Vol] 14.2 g/dL 12.0-15.0 [facility] Immature granulocytes/100 WB C Auto (Bld)Ordered By: VERONICA SAM on 02-17-2025 Immature granulocytes/100 WBC (Bld) 0.100 % 0.0-0.9 [facility] Comment on above: IG% - Immature Granu locytes (promyelocytes, myelocytes and metamyelocytes) > 1% indicates that a LEFT SHIFT is Present. Ketones Test strip Ql (U)Ord ered By: VERONICA SAM on 02-17-2025 Ketones Ql (U) Negative Negative [facility] - Chemistry and C hemistry - challengeOrdered By: VERONICA SAM on 02-17-2025 AST [Catalytic activity/Vol] 14 U/L <32 [facility] Lymphocytes Auto (Unsp spec) [#/Vol]Ordered By: VERONICA SAM on 02-17-2025 Lymphocytes (Bld) [#/Vol] 2.44 10*3/uL 0.83-4.5 1 [facility] Lymphocytes/100 WBC Auto (Un sp spec)Ordered By: VERONICA SAM on 02-17-2025 Lymphocytes/100 WBC (Bld) 30.9 % 19-41 [facility] MCV (mean corpuscular volume ) determinationOrdered By: VERONICA SAM on 02-17-2025 MCV (RBC) [Entitic vol] 93.2 fL 81-99 [facility] Mean corpuscular hemoglobin (MCH) determinationOrdered By: VERONICA SAM on 02-17-2025 MCH (RBC) [Entitic mass] 31.1 pg 27.0-32.0 [facility] Mean corpuscular hemoglobin concentration (MCHC) determinationOrdered By: VERONICA SAM on 02-17-2025 MCHC (RBC) [Mass/Vol] 33.4 g/dL 32-36 [facility] Mean platelet volume determi nationOrdered By: VERONICA SAM on 02-17-2025 Platelet mean volume (Bld) [Entitic vol] 9.9 fL 6.2-12.0 [facility] Microscopic analysis of urin e for red blood cells (RBC)Ordered By: VERONICA SAM on 02-17-2025 Microscopic analysis of urine for red blood cells (RBC) 0 SEEN /hpf 0-5 [facility] Urine RBC 0 SEEN /hpf 0-5 [facility] Monocyte percentageOrdered B y: VERONICA SAM on 02-17-2025 Monocytes/100 WBC (Bld) 7.5 % 0-10 [facility] Mucus LM Ql (Urine sed)Order ed By: VERONICA SAM on 02-17-2025 Mucus Ql (Urine sed) 0 SEEN /hpf [facility] Neutrophil percentageOrdered By: VERONICA SAM on 02-17-2025 Neutrophils/100 WBC (Bld) 59.2 % 47-70 [facility] Nitrite Test strip Ql (U)Ord ered By: VERONICA SAM on 02-17-2025 Nitrite Ql (U) Negative Negative [facility] Nucleated red blood cell per centageOrdered By: VERONICA SAM on 02-17-2025 Nucleated RBC/100 WBC (Bld) [Ratio] 0 % 0-5 [facility] Platelet countOrdered By: RA KAT SAM on 02-17-2025 Platelets (Bld) [#/Vol] 311 10*3/uL 150-450 [facility] Protein Test strip Ql (U)Ord ered By: VERONICA SAM on 02-17-2025 Protein Ql (U) Negative Negative [facility] RBC Auto (Bld) [#/Vol]Ordere d By: VERONICA SAM on 02-17-2025 RBC (Bld) [#/Vol] 4.56 10*6/uL 4.2-5.4 [facility] Serum Creatinine AND GFRon 0 02-17-2025 Creatinine [Mass/Vol] 0.93 mg/dL Normal 0.70-1.20 [facility] Comment on above: Performed By: #### L 100.0100, L501.4100, L501.4405, L400.0001, L3100.5700, L501.1000, L3100.5800, L501.6710, L3100.5500, L101.9900, L501.1105 #### [facility] [address] [place], [place], [id number] (014) GFR/1.73 sq M.predicted among non-blacks MDRD (S/P/Bld) [Vol rate/Area] 78 mL/min/{1.73_m2} Normal >60 [place] Comment on above: Result Comment: mL/m in/1.73m2 CKD-EPI Creatinine Equation (2020) Performed By: #### L 100.0100, L501.4100, L501.4405, L400.0001, L3100.5700, L501.1000, L3100.5800, L501.6710, L3100.5500, L101.9900, L501.1105 #### [facility] [address] [place], [place], [id number] Serum DNA double strand anti body assay (units/volume)Ordered By: VERONICA SAM on 02-17-2025 DNA double strand Ab Qn (S) TNP [facility] Comment on above: Test not performed Serum creatinine measurement (mass/volume)Ordered By: VERONICA SAM on 02-17-2025 Creatinine [Mass/Vol] 0.93 mg/dL 0.70-1.20 [facility] Serum or plasma C reactive p rotein measurement (mass/volume)Ordered By: VERONICA SAM on 02-17-2025 CRP [Mass/Vol] mg/L 0.0-3.0 [facility] Serum or plasma alanine malik otransferase (ALT) measurementOrdered By: VERONICA SAM on 02-17-2025 ALT [Catalytic activity/Vol] 12 U/L <35 [facility] Serum or plasma complement C 4 measurement (mass/volume)Ordered By: VERONICA SAM on 02-17-2025 Complement C4 [Mass/Vol] 22 mg/dL 12-38 [facility] Serum or plasma urea nitroge n measurement (mass/volume)Ordered By: VERONICA SAM on 02-17-2025 Urea nitrogen [Mass/Vol] 10 mg/dL 4-19 [facility] Squamous epithelial cells de tection in urine sediment by light microscopyOrdered By: VERONICA SAM on 02-17-2025 Epithelial cells.squamous LM Ql (Urine sed) 0-5 SEEN /hpf - [facility] Urinalysis, Completeon 02-17 EPI,SQUAMOUS 0-5 SEEN Normal 03-18 [facility] Comment on above: Order Comment: CLEAN CATCH Performed By: #### L 100.0100, L501.4100, L501.4405, L400.0001, L3100.5700, L501.1000, L3100.5800, L501.6710, L3100.5500, L101.9900, L501.1105 #### [facility] [address] [place], [place], [phone] BACTERIA 0 SEEN Normal None Seen [facility] Comment on above: Order Comment: CLEAN CATCH Performed By: #### L 100.0100, L501.4100, L501.4405, L400.0001, L3100.5700, L501.1000, L3100.5800, L501.6710, L3100.5500, L101.9900, L501.1105 #### [facility] [address] [place], [place], [id number] Mucus Ql (Urine sed) 0 SEEN Normal [facility] Comment on above: Order Comment: CLEAN CATCH Performed By: #### L 100.0100, L501.4100, L501.4405, L400.0001, L3100.5700, L501.1000, L3100.5800, L501.6710, L3100.5500, L101.9900, L501.1105 #### [facility] [address] [facility] [place], [place], [id number] RBC 0 SEEN Normal 0-5 [facility] Comment on above: Order Comment: CLEAN CATCH Performed By: #### L 100.0100, L501.4100, L501.4405, L400.0001, L3100.5700, L501.1000, L3100.5800, L501.6710, L3100.5500, L101.9900, L501.1105 #### [facility] [address] [facility] [address] [place], [place], [id number] WBC 0 SEEN Normal 0-5 [facility] Comment on above: Order Comment: CLEAN CATCH Performed By: #### L 100.0100, L501.4100, L501.4405, L400.0001, L3100.5700, L501.1000, L3100.5800, L501.6710, L3100.5500, L101.9900, L501.1105 #### [facility] [address] [facility] [place], [place], [id number] Urine blood detectionOrdered By: VERONICA SAM on 02-17-2025 Urine Occult Blood Negative Negative [facility] Urine clarityOrdered By: VIRAL SAM on 02-17-2025 Clarity (U) Clear Clear [facility] Urine color determinationOrd ered By: VERONICA SAM on 02-17-2025 Color (U) Yellow Yellow [facility] Urine glucose detectionOrder ed By: VERONICA SAM on 02-17-2025 Glucose Ql (U) Normal mg/dl Normal [facility] Urine leukocyte esterase det ection by dipstickOrdered By: VERONICA SAM on 02-17-2025 Leukocyte esterase Test strip Ql (U) Negative Negative [facility] Urine pHOrdered By: VERONICA SCHUMACHER on 02-17-2025 pH (U) 7.0 [pH] 5.0 - 8.0 [facility] Urine sediment bacteria coun t by microscopy (number/high power field)Ordered By: VERONICA SAM on 02-17-2025 Bacteria LM.HPF (Urine sed) [#/Area] 0 /[HPF] None Seen [facility] Urine specific gravity measu rementOrdered By: VERONICA SAM on 02-17-2025 Specific gravity (U) [Rel density] 1.005 1.002-1.030 [facility] Urine urobilinogen measureme ntOrdered By: VERONICA SAM on 02-17-2025 Urobilinogen Ql (U) Normal mg/dl Normal [facility] Urobilinogen Ql (U)Ordered B y: VERONICA SAM on 02-17-2025 Urine Urobilinogen Normal mg/dl Normal [facility] White blood cell (WBC) count Ordered By: VERONICA SAM on 02-17-2025 WBC (Bld) [#/Vol] 7.9 10*3/uL 4.4-11.0 [facility] White blood cell countOrdere d By: VERONICA SAM on 02-17-2025 Urine WBC 0 SEEN /hpf 0-5 [facility] White blood cell count 0 SEEN /hpf 0-5 [facility] Bacteria Ur Culton Bacteria identified Cx Nom (U) ORGANISM ID: 1 10,000 -<50,000 CFU/ml Normal urogenital lena Normal [facility] Comment on above: Performed By: #### 6 30-4 #### [facility] CLIA [id number] [address] [place] [address] [place] [facility] CNOVon 12-07-2024 CNOV Office Visit ([facility] ) EMILIA GALLEGO ([id number]) 1980 F Date Time Provider Department 12/07/24 1:45 PM [facility] MAGALLANES [facility] During your visit today, we recorded the following information about you: Temperature Pulse Respiration Blood pressure 97.6 degrees 83/minute 18/minute 110/72 Weight 67.9 kg [place] Magallanes APRN.TUBING SUPERVISOR 12/07/2024 1:23 PM Signed CC: Patient presents with: Pain, Sinus: Sinus pressure, congestion and drainage x 2 weeks and frequency x 2 days HPI: Emilia Gallego is a 44 year old female who presents to the office with complaint of head congestion and sinus symptoms for 2 weeks. Symptoms are staying the same. Associated symptoms includes nasal congestion and facial pain/pressure. Urinary frequency Denies fever, ear pain, ear pressure , nausea, vomiting , and diarrhea. Treatments tried include nothing so far. with no relief of symptoms. Sick contacts: unknown. History of asthma, frequent episodes of bronchitis, chronic bronchitis, bronchiectasis or COPD: No Smoker: No Seasonal/environmenta l allergies: No The ROS is otherwise negative. The patient's pmh, medications, allergies, and past visits are reviewed. PHYSICAL EXAM: BP 110/72 Pulse 83 Temp 36.4 ?C (97.6 ?F) (Tympanic) Resp 18 Wt 67.9 kg (149 lb 11.1 oz) LMP 01/30/2016 SpO2 98% BMI 25.69 kg/m? General appearance: alert, cooperative, pleasant, in no acute distress Head: Normocephalic Eyes: EOM's intact, conjunctiva pink and moist, no icterus, sclera white, non-injected Ears: Right ear: External ear/canal- Normal, TM - clear with good landmarks. Left ear: External ear/canal- Normal, TM - clear with good landmarks Oropharynx:moist without lesions, No erythema, exudates or tonsillar hypertrophy. Heart: Negative. RRR without obvious murmur, gallop, or rubs. No ectopy. Lungs: clear to auscultation, without rales or wheeze, good air exchange Abdomen: soft non tender ASSESSMENT/PLAN: 1. Urinary frequency - ICD9: 788.41, ICD10: R35.0 (primary diagnosis) - UA DIP, URINE (POC) - BACTERIAL CULTURE, URINE 2. Rhinosinusitis - ICD9: 473.9, ICD10: J32.9 - DOXYCYCLINE HYCLATE 100 MG TABLET Suspect a UTI at this time due to negative dip but sending the culture just to verify. If positive please treat. Prescription instructions reviewed with patient as applicable. Potential red flag symptoms discussed with the patient. Reviewed appropriate action plan to take if red flag symptoms occur. Patient agreeable to treatment plan. Anson Magallanes APRN.TUBING SUPERVISOR Allergies As of Date: 12/07/2024 Noted Allergy Reaction LEVAQUIN (LEVOFLOXACIN) 01/02/2016 1 - Mental Status Change Comments: anxiety MACROBID (NITROFURANTOIN MONOHYD/*07/25/2014 8 - GI Upset PERCOCET (OXYCODONE-ACETAMINOP HEN)01/14/2013 4 - Hives Date Reviewed: 12/07/2024 Reviewed by: Krissy Pinto LPN - Fully Assessed Reason for Visit: Pain, Sinus [857] Cmt: Sinus pressure, congestion and drainage x 2 weeks and frequency x 2 days Primary Visit Diagnosis:Urinary frequency [R35.0] Other Visit Diagnosis:Rhinosinusi tis [J32.9] Order(s):UA DIP, URINE (POC) [2496845] Order #: [id number]. #:[id number] BACTERIAL CULTURE, URINE [SQURCUL] Order #: [id number]. #:[id number] doxycycline (VIBRA-TABS) 100 mg tabletTake 1 tablet by mouth two times a day for 7 days.Disp: 14 tabletRfl: 0 Prescriptions as of 12/07/2024 - topiramate (TOPAMAX) 25 mg tablet TAKE TABLET BY MOUTH DIRECTED IN EVENING FOR 7 DAYS THEN INCREASE TO TWO TABLETS. - temazepam (RESTORIL) 30 mg cap TAKE 1 CAPSULE BY MOUTH BEFORE BEDTIME NEEDED FOR SEVERE INSOMNIA. - doxycycline (VIBRA-TABS) 100 mg tablet Take 1 tablet by mouth two times a day for 7 days. - L-METHYLFOLATE 7.5 mg tab Take 1 tablet by mouth once daily. - Norethindrone, Contraceptive, (ORTHO MICRONOR) 0.35 mg tablet Take 1 tablet by mouth once daily. - albuterol HFA (PROAIR HFA) 90 mcg/actuation inhaler Inhale 2 Puffs as instructed every 4 hours as needed. - LORazepam (ATIVAN) 0.5 mg tab Take 0.5 mg by mouth as needed. - busPIRone (BUSPAR) 10 mg tablet twice daily. - PARoxetine (PAXIL) 10 mg tablet twice daily. - hydroxychloroquine (PLAQUENIL) 200 mg tablet 300 mg once daily. - meloxicam (MOBIC) 15 mg tablet Take 15 mg by mouth once daily. - aspirin, enteric coated (ASPIRIN, ENTERIC COATED) 81 mg EC tablet Take 81 mg by mouth once daily. Problem List As Of Date 12/07/2024 Noted Resolved Infertility female 07/05/2010 02/13/2016 Anemia [D64.9] 07/05/2010 05/25/2012 Metrorrhagia [N92.1] 07/05/2010 05/25/2012 Leiomyoma of uterus, unspecified [D25.9] 11/18/2010 05/25/2012 Urgency of urination [R39.15] 11/05/2011 05/25/2012 Abdominal pain, right lower quadrant [R10.31] 05/25/2012 02/13/2016 Fatigue [R53.83] 01/14/2013 02/13/2016 Paresthesia [R20.2] 03/30/2013 (more content not included)... Normal [facility] UA DIP, URINE (POC)on 2024 BILIRUBIN UA (POCT) Negative Negative [facility] CLARITY UA (POCT) Clear [facility] COLOR UA (POCT) Yellow [facility] GLUCOSE UA (POCT) Negative Negative mg/dL [facility] Hemoglobin Ql (U) Negative Negative [facility] KETONE UA (POCT) Negative Negative mg/dL [facility] LEUKOCYTES UA (POCT) Negative Negative [facility] NITRITE UA (POCT) Negative Negative [facility] PH UA (POCT) 6.5 4.5 - 8.0 [facility] Protein Ql (U) Negative Negative mg/dL [facility] SPECIFIC GRAVITY UA (POCT) 1.010 1.005 - 1.030 [facility] UROBILINOGEN UA (POCT) 0.2 Cecy l E.U./dL [facility] Location:[facility], [address] [place] [address], [place], [place], [address] [place] [address] POINT OF CARE [facility] ANTINUCLEAR ANTIBODIES DIREC Ton 11-18-2024 MIREYA,DIRECT Negative Normal Negative [facility] Comment on above: Result Comment: Perf ormed at: - [facility] [id number] Intake Nurse: Claudio Carrion PhD, Phone: [phone] Performed By: #### L 100.0100, L501.4100, L501.4405, L400.0001, L3100.5700, L501.1000, L3100.5800, L501.6710, L3100.5500, L101.9900, L501.1105 #### [facility] [address] [place], [place], [phone] Protein Electroph, Son 11-18 Albumin [Mass/Vol] 3.9 g/dL Normal 2.9-4.4 [facility] Comment on above: Order Comment: Order Date: 11/17/24Order Info: 0060-1 - PROEL Performed By: #### L 100.0100, L501.4100, L501.4405, L400.0001, L3100.5700, L501.1000, L3100.5800, L501.6710, L3100.5500, L101.9900, L501.1105 #### [facility] [address] [place], [place], [phone] Albumin/Globulin [Mass ratio] 1.2 {ratio} Normal 0.7-1.7 [facility] Comment on above: Order Comment: Order Date: 11/17/24Order Info: 0060-1 - PROEL Performed By: #### L 100.0100, L501.4100, L501.4405, L400.0001, L3100.5700, L501.1000, L3100.5800, L501.6710, L3100.5500, L101.9900, L501.1105 #### [facility] [address] [place], [place], [phone] ALPHA-1 GLOBUL 0.2 g/dL Normal 0.0-0.4 [facility] Comment on above: Order Comment: Order Date: 11/17/24Order Info: 0060-1 - PROEL Performed By: #### L 100.0100, L501.4100, L501.4405, L400.0001, L3100.5700, L501.1000, L3100.5800, L501.6710, L3100.5500, L101.9900, L501.1105 #### [facility] [address] [place], [address] ALPHA-2 GLOBUL 0.8 g/dL Normal 0.4-1.0 [facility] Comment on above: Order Comment: Order Date: 11/17/24Order Info: 0060-1 - PROEL Performed By: #### L 100.0100, L501.4100, L501.4405, L400.0001, L3100.5700, L501.1000, L3100.5800, L501.6710, L3100.5500, L101.9900, L501.1105 #### [facility] [address] [place], [address] BETA GLOBULIN 1.2 g/dL Normal 0.7-1.3 [facility] Comment on above: Order Comment: Order Date: 11/17/24Order Info: 0060-1 - PROEL Performed By: #### L 100.0100, L501.4100, L501.4405, L400.0001, L3100.5700, L501.1000, L3100.5800, L501.6710, L3100.5500, L101.9900, L501.1105 #### [facility] [address] [place], [address] GAMMA GLOBULIN 1.0 g/dL Normal 0.4-1.8 [facility] Comment on above: Order Comment: Order Date: 11/17/24Order Info: 0060-1 - PROEL Performed By: #### L 100.0100, L501.4100, L501.4405, L400.0001, L3100.5700, L501.1000, L3100.5800, L501.6710, L3100.5500, L101.9900, L501.1105 #### [facility] [address] [place], [place], [id number] Globulin (S) [Mass/Vol] 3.3 g/dL Normal 2.2-3.9 [facility] Comment on above: Order Comment: Order Date: 11/17/24Order Info: 0060-1 - PROEL Performed By: #### L 100.0100, L501.4100, L501.4405, L400.0001, L3100.5700, L501.1000, L3100.5800, L501.6710, L3100.5500, L101.9900, L501.1105 #### [facility] [address] [place], [address] INTERPRETATION Comment Normal . [facility] Comment on above: Order Comment: Order Date: 11/17/24Order Info: 0060-1 - PROEL Result Comment: Prot ein electrophoresis scan will follow via computer, mail, or pack worker supervisor delivery. Performed By: #### L 100.0100, L501.4100, L501.4405, L400.0001, L3100.5700, L501.1000, L3100.5800, L501.6710, L3100.5500, L101.9900, L501.1105 #### [facility] [address] [place], [place], [phone] M-SPIKE Not Observed Normal Not Observed [facility] Comment on above: Order Comment: Order Date: 11/17/24Order Info: 0060-1 - PROEL Performed By: #### L 100.0100, L501.4100, L501.4405, L400.0001, L3100.5700, L501.1000, L3100.5800, L501.6710, L3100.5500, L101.9900, L501.1105 #### [facility] [address] [place], [place], [phone] NOTE: Comment Normal . [facility] Comment on above: Order Comment: Order Date: 11/17/24Order Info: 0060-1 - PROEL Result Comment: The SPE pattern appears unremarkable. Evidence of monoclonal protein is not apparent. Performed at: [facility] [address] [place], [place] [id number] Intake Nurse: Claudio Carrion PhD, Phone: [phone] Performed By: #### L 100.0100, L501.4100, L501.4405, L400.0001, L3100.5700, L501.1000, L3100.5800, L501.6710, L3100.5500, L101.9900, L501.1105 #### [facility] [address] [place], [place], [address] Protein [Mass/Vol] 7.2 g/dL Normal 6.0-8.5 [facility] Comment on above: Order Comment: Order Date: 11/17/24Order Info: 006-1 - PROEL Performed By: #### L 100.0100, L501.4100, L501.4405, L400.0001, L3100.5700, L501.1000, L3100.5800, L501.6710, L3100.5500, L101.9900, L501.1105 #### [facility] [address] [place], [place], [phone] MIREYA serumOrdered By: Abimbola go on 11-17-2024 Anti-Nuclear Antibody Screen Negative Negative [facility] Comment on above: Performed at: [facility] [id number] [place], [place] [id number] Director: Claudio Carrion PhD, Phone: [phone] Absolute neutrophil countOrd ered By: Abimbola Cavazos on 11-17-2024 Neutrophils (Bld) [#/Vol] 3.8 10*3/uL 2.0-7.7 [facility] Addendum DocumentOrdered By: Abimbola Cavazos on 11-17-2024 Protein Electrophoresis Note Comment . [facility] Comment on above: The SPE pattern appe ars unremarkable. Evidence ofmonoclonal protein is not apparent.Performed at: [facility] [address] [id number] Director: Claudio Carrion PhD, Phone: [phone] Albumin Elph [Mass/Vol]Order ed By: Abimbola Cavazos on 11-17-2024 Albumin [Mass/Vol] 3.9 g/dL 2.9-4.4 [facility] Albumin to globulin ratioOrd ered By: Abimbola Cavazos on 11-17-2024 Albumin/Globulin [Mass ratio] 1.1 {ratio} 0.9-2.4 [facility] Albumin/Globulin Elph [Mass ratio]Ordered By: Abimbola Cavazos on 11-17-2024 Albumin/Globulin (PEP) 1.2 0.7-1.7 [place] Ryhuv-8-sfopijwl measurement by protein electrophoresisOrdered By: Abimbola Cavazos on 11-17-2024 Qjvnp-9-Yxedxdrur 0.2 g/dL 0.0-0.4 [facility] Ivbez-2-voojwmzo measurement by protein electrophoresisOrdered By: Abimbola Cavazos on 11-17-2024 Bueje-6-Eiebxdcgs 0.8 g/dL 0.4-1.0 [facility] Basophil percentageOrdered B y: Abimbola Cavazos on 11-17-2024 Basophils/100 WBC (Bld) 0.7 % 0-1 [facility] Beta globulin Elph [Mass/Vol ]Ordered By: Abimbola Cavazos on 11-17-2024 Beta Globulins 1.2 g/dL 0.7-1.3 [facility] Bilirubin, totalOrdered By: Abimbola Cavazos on 11-17-2024 Bilirubin [Mass/Vol] 0.70 mg/dL 0.20-1.00 [facility] Comment on above: For patients on eltr ombopag therapy, use of Dimension Gap TBIL is not recommended. Blood urea nitrogen (BUN)/cr eatinine ratioOrdered By: Abimbola Cavazos on 11-17-2024 Urea nitrogen/Creatinine [Mass ratio] 9.7 mg/mg Low 10-20 [facility] C-reactive protein measureme nt by high sensitivity methodOrdered By: Abimbola Cavazos on 11-17-2024 C-Reactive Protein Extended Range < 2.90 mg/L 0.0-3.0 [facility] Comment on above: C-Reactive Protein ( CRP) provides useful information for thediagnosis, therapy and monitoring of inflammatory processesand associated diseases. For the evaluation of Relative Riskfor Cardiovascular Disease, a High Sensitivity CRP (HSCRP)should be ordered. CBC W/Diff, Automatedon Absolute Lymph 2.56 X10 3/uL Normal 0.83-4.51 [facility] Comment on above: Order Comment: Order Date: 11/17/24Order Info: 0184-1 - CBCDOrder Info: [id number] - SED Performed By: #### L 100.0100, L501.4100, L501.4405, L400.0001, L3100.5700, L501.1000, L3100.5800, L501.6710, L3100.5500, L101.9900, L501.1105 #### [facility] [address] [place], [address] Absolute Neut 3.8 X10 3/uL Normal 2.0-7.7 [facility] Comment on above: Order Comment: Order Date: 11/17/24Order Info: 0184-1 - CBCDOrder Info: [id number] - SED Performed By: #### L 100.0100, L501.4100, L501.4405, L400.0001, L3100.5700, L501.1000, L3100.5800, L501.6710, L3100.5500, L101.9900, L501.1105 #### [facility] [address] [place], [address] Basophils/100 WBC (Bld) 0.7 % Normal 0-1 [facility] Comment on above: Order Comment: Order Date: 11/17/24Order Info: 0184-1 - CBCDOrder Info: [id number] - SED Performed By: #### L 100.0100, L501.4100, L501.4405, L400.0001, L3100.5700, L501.1000, L3100.5800, L501.6710, L3100.5500, L101.9900, L501.1105 #### [facility] [address] [place], [place], [phone] Eosinophils/100 WBC (Bld) 1.2 % Normal 0-5 [facility] Comment on above: Order Comment: Order Date: 11/17/24Order Info: 0184-1 - CBCDOrder Info: [id number] - SED Performed By: #### L 100.0100, L501.4100, L501.4405, L400.0001, L3100.5700, L501.1000, L3100.5800, L501.6710, L3100.5500, L101.9900, L501.1105 #### [facility] [address] [facility] [place], [address] Erythrocyte distribution width (RBC) [Ratio] 12.5 % Normal 11.6-14.6 [facility] Comment on above: Order Comment: Order Date: 11/17/24Order Info: 0184- - CBCDOrder Info: [id number] - SED Performed By: #### L 100.0100, L501.4100, L501.4405, L400.0001, L3100.5700, L501.1000, L3100.5800, L501.6710, L3100.5500, L101.9900, L501.1105 #### [facility] [address] [place], [place], [phone] Hematocrit (Bld) [Volume fraction] 43.1 % Normal 37-47 [facility] Comment on above: Order Comment: Order Date: 11/17/24Order Info: 0184-1 - CBCDOrder Info: [id number] - SED Performed By: #### L 100.0100, L501.4100, L501.4405, L400.0001, L3100.5700, L501.1000, L3100.5800, L501.6710, L3100.5500, L101.9900, L501.1105 #### [facility] [address] [place], [address] Hemoglobin (Bld) [Mass/Vol] 14.4 g/dL Normal 12.0-15.0 [facility] Comment on above: Order Comment: Order Date: 11/17/24Order Info: 0184-1 - CBCDOrder Info: [id number] - SED Performed By: #### L 100.0100, L501.4100, L501.4405, L400.0001, L3100.5700, L501.1000, L3100.5800, L501.6710, L3100.5500, L101.9900, L501.1105 #### [facility] [address] [place], [address] IG% 0.300 Normal 0.0-0.9 [facility] Comment on above: Order Comment: Order Date: 11/17/24Order Info: 0184- - CBCDOrder Info: [id number] - SED Result Comment: IG% - Immature Granulocytes (promyelocytes, myelocytes and metamyelocytes) > 1% indicates that a LEFT SHIFT is Present. Performed By: #### L 100.0100, L501.4100, L501.4405, L400.0001, L3100.5700, L501.1000, L3100.5800, L501.6710, L3100.5500, L101.9900, L501.1105 #### [facility] [address] [place], [address] Lymphocytes/100 WBC (Bld) 37.1 % Normal 19-41 [facility] Comment on above: Order Comment: Order Date: 11/17/24Order Info: 0184-1 - CBCDOrder Info: 20800-1 - SED Performed By: #### L 100.0100, L501.4100, L501.4405, L400.0001, L3100.5700, L501.1000, L3100.5800, L501.6710, L3100.5500, L101.9900, L501.1105 #### [facility] [address] [place], [address] MCH (RBC) [Entitic mass] 30.7 pg Normal 27.0-32.0 [facility] Comment on above: Order Comment: Order Date: 11/17/24Order Info: 0184-1 - CBCDOrder Info: [id number] - SED Performed By: #### L 100.0100, L501.4100, L501.4405, L400.0001, L3100.5700, L501.1000, L3100.5800, L501.6710, L3100.5500, L101.9900, L501.1105 #### [facility] [address] [place], [address] MCHC (RBC) [Mass/Vol] 33.4 g/dL Normal 32-36 [facility] Comment on above: Order Comment: Order Date: 11/17/24Order Info: 018-1 - CBCDOrder Info: 81629-3 - SED Performed By: #### L 100.0100, L501.4100, L501.4405, L400.0001, L3100.5700, L501.1000, L3100.5800, L501.6710, L3100.5500, L101.9900, L501.1105 #### [facility] [address] [place], [address] MCV (RBC) [Entitic vol] 91.9 fL Normal 81-99 [facility] Comment on above: Order Comment: Order Date: 11/17/24Order Info: 018-1 - CBCDOrder Info: [id number] - SED Performed By: #### L 100.0100, L501.4100, L501.4405, L400.0001, L3100.5700, L501.1000, L3100.5800, L501.6710, L3100.5500, L101.9900, L501.1105 #### [facility] [address] [place], [address] Monocytes/100 WBC (Bld) 6.2 % Normal 0-10 [facility] Comment on above: Order Comment: Order Date: 11/17/24Order Info: 0184-1 - CBCDOrder Info: [id number] - SED Performed By: #### L 100.0100, L501.4100, L501.4405, L400.0001, L3100.5700, L501.1000, L3100.5800, L501.6710, L3100.5500, L101.9900, L501.1105 #### [facility] [address] [place], [address] Neutrophils/100 WBC (Bld) 54.5 % Normal 47-70 [facility] Comment on above: Order Comment: Order Date: 11/17/24Order Info: 018-1 - CBCDOrder Info: 21476-2 - SED Performed By: #### L 100.0100, L501.4100, L501.4405, L400.0001, L3100.5700, L501.1000, L3100.5800, L501.6710, L3100.5500, L101.9900, L501.1105 #### [facility] [address] [place], [address] Nucleated RBC (Bld) [#/Vol] 0 10*3/uL Normal 0-5 [facility] Comment on above: Order Comment: Order Date: 11/17/24Order Info: 0184-1 - CBCDOrder Info: [id number] - SED Performed By: #### L 100.0100, L501.4100, L501.4405, L400.0001, L3100.5700, L501.1000, L3100.5800, L501.6710, L3100.5500, L101.9900, L501.1105 #### [facility] [address] [place], [address] Platelet mean volume (Bld) [Entitic vol] 10.0 fL Normal 6.2-12.0 [facility] Comment on above: Order Comment: Order Date: 11/17/24Order Info: 0184-1 - CBCDOrder Info: [id number] - SED Performed By: #### L 100.0100, L501.4100, L501.4405, L400.0001, L3100.5700, L501.1000, L3100.5800, L501.6710, L3100.5500, L101.9900, L501.1105 #### [facility] [address] [place], [address] Platelets (Bld) [#/Vol] 338 10*3/uL Normal 150-450 [facility] Comment on above: Order Comment: Order Date: 11/17/24Order Info: 018- - CBCDOrder Info: [id number] - SED Performed By: #### L 100.0100, L501.4100, L501.4405, L400.0001, L3100.5700, L501.1000, L3100.5800, L501.6710, L3100.5500, L101.9900, L501.1105 #### [facility] [address] [place], [address] RBC (Bld) [#/Vol] 4.69 10*6/uL Normal 4.2-5.4 [facility] Comment on above: Order Comment: Order Date: 11/17/24Order Info: 0184- - CBCDOrder Info: [id number] - SED Performed By: #### L 100.0100, L501.4100, L501.4405, L400.0001, L3100.5700, L501.1000, L3100.5800, L501.6710, L3100.5500, L101.9900, L501.1105 #### [facility] [address] [place], [address] RDW SD 41.7 fl Normal 35.1-43.9 [facility] Comment on above: Order Comment: Order Date: 11/17/24Order Info: 0184-1 - CBCDOrder Info: [id number] - SED Performed By: #### L 100.0100, L501.4100, L501.4405, L400.0001, L3100.5700, L501.1000, L3100.5800, L501.6710, L3100.5500, L101.9900, L501.1105 #### [facility] [address] [place], [place], [phone] WBC (Bld) [#/Vol] 6.9 10*3/uL Normal 4.4-11.0 [facility] Comment on above: Order Comment: Order Date: 11/17/24Order Info: 0184-1 - CBCDOrder Info: [id number] - SED Performed By: #### L 100.0100, L501.4100, L501.4405, L400.0001, L3100.5700, L501.1000, L3100.5800, L501.6710, L3100.5500, L101.9900, L501.1105 #### [facility] [address] [place], [place], [phone] CRPon 11-17-2024 C-REACTIVE PROT < 2.90 Normal 0.0-3.0 [facility] Comment on above: Order Comment: Order Date: 11/17/24Order Info: [id number] - CMPOrder Info: [id number] - CRPOrder Info: [id number] - TSH Result Comment: C-Re active Protein (CRP) provides useful information for the diagnosis, therapy and monitoring of inflammatory processes and associated diseases. For the evaluation of Relative Risk for Cardiovascular Disease, a High Sensitivity CRP (HSCRP) should be ordered. Performed By: #### L 100.0100, L501.4100, L501.4405, L400.0001, L3100.5700, L501.1000, L3100.5800, L501.6710, L3100.5500, L101.9900, L501.1105 #### [facility] [address] [place], [place], [id number] Carbon dioxide measurementOr dered By: Abimbola Cavazos on 11-17-2024 CO2 [Moles/Vol] 24.0 mmol/L 21.0-32.0 [facility] Chloride measurementOrdered By: Abimbola Cavazos on 11-17-2024 Chloride [Moles/Vol] 107 mmol/L 98-107 [facility] Comprehensive Metabolic Prof ilon 11-17-2024 Albumin [Mass/Vol] 3.8 g/dL Normal 3.2-5.0 [facility] Comment on above: Order Comment: Order Date: 11/17/24Order Info: [id number] - CMPOrder Info: [id number] - CRPOrder Info: 3016-3 - TSH Performed By: #### L 100.0100, L501.4100, L501.4405, L400.0001, L3100.5700, L501.1000, L3100.5800, L501.6710, L3100.5500, L101.9900, L501.1105 #### [facility] [address] [place], [address] Albumin/Globulin [Mass ratio] 1.1 {ratio} Normal 0.9-2.4 [facility] Comment on above: Order Comment: Order Date: 11/17/24Order Info: [id number] - CMPOrder Info: [id number] - CRPOrder Info: [id number] - TSH Performed By: #### L 100.0100, L501.4100, L501.4405, L400.0001, L3100.5700, L501.1000, L3100.5800, L501.6710, L3100.5500, L101.9900, L501.1105 #### [facility] [address] [place], [place], [id number] ALK P 50 U/L Normal 45-117 [facility] Comment on above: Order Comment: Order Date: 11/17/24Order Info: [id number] - CMPOrder Info: [id number] - CRPOrder Info: 3 - TSH Performed By: #### L 100.0100, L501.4100, L501.4405, L400.0001, L3100.5700, L501.1000, L3100.5800, L501.6710, L3100.5500, L101.9900, L501.1105 #### [facility] [address] [place], [address] ALT [Catalytic activity/Vol] 26 U/L Normal 13-56 [facility] Comment on above: Order Comment: Order Date: 11/17/24Order Info: 07-1 - CMPOrder Info: [id number] - CRPOrder Info: [id number] - TSH Performed By: #### L 100.0100, L501.4100, L501.4405, L400.0001, L3100.5700, L501.1000, L3100.5800, L501.6710, L3100.5500, L101.9900, L501.1105 #### [facility] [address] [place], [place], [id number] AST [Catalytic activity/Vol] 16 U/L Normal 15-37 [facility] Comment on above: Order Comment: Order Date: 11/17/24Order Info: [id number] - CMPOrder Info: [id number] - CRPOrder Info: 3 - TSH Performed By: #### L 100.0100, L501.4100, L501.4405, L400.0001, L3100.5700, L501.1000, L3100.5800, L501.6710, L3100.5500, L101.9900, L501.1105 #### [facility] [address] [place], [address] Bilirubin [Mass/Vol] 0.70 mg/dL Normal 0.20-1.00 [facility] Comment on above: Order Comment: Order Date: 11/17/24Order Info: [id number] - CMPOrder Info: [id number] - CRPOrder Info: 301- - TSH Result Comment: For patients on eltrombopag therapy, use of Dimension Gap TBIL is not recommended. Performed By: #### L 100.0100, L501.4100, L501.4405, L400.0001, L3100.5700, L501.1000, L3100.5800, L501.6710, L3100.5500, L101.9900, L501.1105 #### [facility] [address] [place], [address] BUN/CRE 9.7 RATIO Low 10-20 [facility] Comment on above: Order Comment: Order Date: 11/17/24Order Info: [id number] - CMPOrder Info: [id number] - CRPOrder Info: [id number] - TSH Performed By: #### L 100.0100, L501.4100, L501.4405, L400.0001, L3100.5700, L501.1000, L3100.5800, L501.6710, L3100.5500, L101.9900, L501.1105 #### [facility] [address] [place], [place], [phone] (080) CA,Total 9.4 mg/dL Normal 8.5-10.1 [facility] Comment on above: Order Comment: Order Date: 11/17/24Order Info: [id number] - CMPOrder Info: [id number] - CRPOrder Info: [id number] - TSH Performed By: #### L 100.0100, L501.4100, L501.4405, L400.0001, L3100.5700, L501.1000, L3100.5800, L501.6710, L3100.5500, L101.9900, L501.1105 #### [facility] [address] [place], [place], [phone]) Chloride [Moles/Vol] 107 mmol/L Normal 98-107 [facility] Comment on above: Order Comment: Order Date: 11/17/24Order Info: [id number] - CMPOrder Info: [id number] - CRPOrder Info: [id number] - TSH Performed By: #### L 100.0100, L501.4100, L501.4405, L400.0001, L3100.5700, L501.1000, L3100.5800, L501.6710, L3100.5500, L101.9900, L501.1105 #### [facility] [address] [place], [place], [phone] (879) CO2 [Moles/Vol] 24.0 mmol/L Normal 21.0-32.0 [facility] Comment on above: Order Comment: Order Date: 11/17/24Order Info: 0786 - CMPOrder Info: [id number] - CRPOrder Info: [id number] - TSH Performed By: #### L 100.0100, L501.4100, L501.4405, L400.0001, L3100.5700, L501.1000, L3100.5800, L501.6710, L3100.5500, L101.9900, L501.1105 #### [facility] [address] [place], [place], [phone] (103) Creatinine [Mass/Vol] 0.93 mg/dL Normal 0.55-1.02 [facility] Comment on above: Order Comment: Order Date: 11/17/24Order Info: [id number] - CMPOrder Info: [id number] - CRPOrder Info: [id number] - TSH Result Comment: The validity of the calculated GFR GFRAA in patients over 70 years has not been determined. Clinical correlation is essential. Performed By: #### L 100.0100, L501.4100, L501.4405, L400.0001, L3100.5700, L501.1000, L3100.5800, L501.6710, L3100.5500, L101.9900, L501.1105 #### [facility] [address] [place], [place], [phone] (559) EST GFR - AA 85 mL/min Normal >60 [facility] Comment on above: Order Comment: Order Date: 11/17/24Order Info: [id number] - CMPOrder Info: [id number] - CRPOrder Info: [id number] - TSH Result Comment: Afri can [place] GFR Calc Performed By: #### L 100.0100, L501.4100, L501.4405, L400.0001, L3100.5700, L501.1000, L3100.5800, L501.6710, L3100.5500, L101.9900, L501.1105 #### [facility] [address] [place], [place], [phone] (959) GAP 7 Normal 5-15 [facility] Comment on above: Order Comment: Order Date: 11/17/24Order Info: [id number] - CMPOrder Info: [id number] - CRPOrder Info: [id number] - TSH Performed By: #### L 100.0100, L501.4100, L501.4405, L400.0001, L3100.5700, L501.1000, L3100.5800, L501.6710, L3100.5500, L101.9900, L501.1105 #### [facility] [address] [place], [place], [id number] GFR/1.73 sq M.predicted among non-blacks MDRD (S/P/Bld) [Vol rate/Area] 70 mL/min/{1.73_m2} Normal >60 [place] Comment on above: Order Comment: Order Date: 11/17/24Order Info: [id number] - CMPOrder Info: [id number] - CRPOrder Info: 301-3 - TSH Result Comment: Non- GFR Calc Performed By: #### L 100.0100, L501.4100, L501.4405, L400.0001, L3100.5700, L501.1000, L3100.5800, L501.6710, L3100.5500, L101.9900, L501.1105 #### [facility] [address] [place], [place], [phone] Globulin (S) [Mass/Vol] 3.6 g/dL Normal 2.2-4.[address] [facility] Comment on above: Order Comment: Order Date: 11/17/24Order Info: 0786- - CMPOrder Info: [id number] - CRPOrder Info: [id number] - TSH Performed By: #### L 100.0100, L501.4100, L501.4405, L400.0001, L3100.5700, L501.1000, L3100.5800, L501.6710, L3100.5500, L101.9900, L501.1105 #### [facility] [address] [place], [place], [phone] Glucose [Mass/Vol] 85 mg/dL Normal 74-106 [facility] Comment on above: Order Comment: Order Date: 11/17/24Order Info: 0786- - CMPOrder Info: [id number] - CRPOrder Info: [id number] - TSH Performed By: #### L 100.0100, L501.4100, L501.4405, L400.0001, L3100.5700, L501.1000, L3100.5800, L501.6710, L3100.5500, L101.9900, L501.1105 #### [facility] [address] [place], [place], [phone] Potassium [Moles/Vol] 3.7 mmol/L Normal 3.5-5.1 [facility] Comment on above: Order Comment: Order Date: 11/17/24Order Info: 0786- - CMPOrder Info: [id number] - CRPOrder Info: [id number] - TSH Performed By: #### L 100.0100, L501.4100, L501.4405, L400.0001, L3100.5700, L501.1000, L3100.5800, L501.6710, L3100.5500, L101.9900, L501.1105 #### [facility] [address] [place], [place], [phone] Sodium [Moles/Vol] 138 mmol/L Normal 136-145 [facility] Comment on above: Order Comment: Order Date: 11/17/24Order Info: [id number] - CMPOrder Info: [id number] - CRPOrder Info: 3 - TSH Performed By: #### L 100.0100, L501.4100, L501.4405, L400.0001, L3100.5700, L501.1000, L3100.5800, L501.6710, L3100.5500, L101.9900, L501.1105 #### [facility] [address] [place], [place], [phone] T PROT 7.4 g/dL Normal 6.4-8.2 [facility] Comment on above: Order Comment: Order Date: 11/17/24Order Info: [id number] - CMPOrder Info: [id number] - CRPOrder Info: [id number] - TSH Performed By: #### L 100.0100, L501.4100, L501.4405, L400.0001, L3100.5700, L501.1000, L3100.5800, L501.6710, L3100.5500, L101.9900, L501.1105 #### [facility] [address] [place], [place], [phone] Urea nitrogen [Mass/Vol] 9 mg/dL Normal 7-18 [facility] Comment on above: Order Comment: Order Date: 11/17/24Order Info: [id number] - CMPOrder Info: [id number] - CRPOrder Info: [id number] - TSH Performed By: #### L 100.0100, L501.4100, L501.4405, L400.0001, L3100.5700, L501.1000, L3100.5800, L501.6710, L3100.5500, L101.9900, L501.1105 #### [facility] [address] [place], [place], [phone] Eosinophil percentageOrdered By: Abimbola Cavazos on 11-17-2024 Eosinophils/100 WBC (Bld) 1.2 % 0-5 [facility] Erythrocyte Sed Rateon 11-17 SED RATE 1 mm/hr Normal 0-30 [facility] Comment on above: Order Comment: Order Date: 11/17/24Order Info: [id number] - CBCDOrder Info: [id number] - SED Performed By: #### L 100.0100, L501.4100, L501.4405, L400.0001, L3100.5700, L501.1000, L3100.5800, L501.6710, L3100.5500, L101.9900, L501.1105 #### [facility] [address] [place], [place], [phone] Erythrocyte distribution wid th (RBC) [Ratio]Ordered By: Abimbola Cavazos on 11-17-2024 Erythrocyte distribution width (RBC) [Entitic vol] 41.7 fL 35.1-43.9 [facility] Erythrocyte distribution wid th ratioOrdered By: Abimbola Cavazos on 11-17-2024 Erythrocyte distribution width (RBC) [Ratio] 12.5 % 11.6-14.6 [facility] Erythrocyte sedimentation ra teOrdered By: Abimbola Cavazos on 11-17-2024 ESR (Bld) [Velocity] 1 mm/h 0-30 [facility] Estimated glomerular filtrat ion rate (GFR) AmericanOrdered By: Abimbola Cavazos on 11-17-2024 Estimated GFR (MDRD) Amer 85 mL/min >60 [facility] Comment on above: GFR Calc Gamma globulin measurement b y protein electrophoresisOrdered By: Abimbola Cavazos on 11-17-2024 Gamma Globulins 1.0 g/dL 0.4-1.8 [facility] Globulin (S) [Mass/Vol]Order ed By: Abimbola Cavazos on 11-17-2024 Globulin (PEP) 3.3 g/dL 2.2-3.9 [facility] Glomerular filtration rate ( GFR) estimationOrdered By: Abimbola Cavazos on 11-17-2024 Estimated GFR (MDRD) Non-Af Amer 70 mL/min >60 [facility] Comment on above: Non- GFR Calc Glucose measurementOrdered B y: Abimbola Cavazos on 11-17-2024 Glucose [Mass/Vol] 85 mg/dL 74-106 [facility] Hematocrit Auto (Bld) [Volum e fraction]Ordered By: Abimbola Cavazos on 11-17-2024 Hematocrit (Bld) [Volume fraction] 43.1 % 37-47 [facility] Hemoglobin measurementOrdere d By: Abimbola Cavazos on 11-17-2024 Hemoglobin (Bld) [Mass/Vol] 14.4 g/dL 12.0-15.0 [facility] Immature granulocytes/100 WB C Auto (Bld)Ordered By: Abimbola Cavazos on 11-17-2024 Immature granulocytes/100 WBC (Bld) 0.300 % 0.0-0.9 [facility] Comment on above: IG% - Immature Granu locytes (promyelocytes, myelocytes and metamyelocytes) > 1% indicates that a LEFT SHIFT is Present. Laboratory - Chemistry and C hemistry - challengeOrdered By: Abimbola Cavazos on 11-17-2024 AST [Catalytic activity/Vol] 16 U/L 15-37 [facility] Lymphocytes Auto (Unsp spec) [#/Vol]Ordered By: Abimbola Cavazos on 11-17-2024 Lymphocytes (Bld) [#/Vol] 2.56 10*3/uL 0.83-4.5 1 [facility] Lymphocytes/100 WBC Auto (Un sp spec)Ordered By: Abimbola Cavazos on 11-17-2024 Lymphocytes/100 WBC (Bld) 37.1 % 19-41 [facility] MCV (mean corpuscular volume ) determinationOrdered By: Abimbola Cavazos on 11-17-2024 MCV (RBC) [Entitic vol] 91.9 fL 81-99 [facility] Mean corpuscular hemoglobin (MCH) determinationOrdered By: Abimbola Cavazos on 11-17-2024 MCH (RBC) [Entitic mass] 30.7 pg 27.0-32.0 [facility] Mean corpuscular hemoglobin concentration (MCHC) determinationOrdered By: Abimbola Cavazos on 11-17-2024 MCHC (RBC) [Mass/Vol] 33.4 g/dL 32-36 [facility] Mean platelet volume determi nationOrdered By: Abimbola Cavazos on 11-17-2024 Platelet mean volume (Bld) [Entitic vol] 10.0 fL 6.2-12.0 [facility] Monocyte percentageOrdered B y: Abimbola Cavazos on 11-17-2024 Monocytes/100 WBC (Bld) 6.2 % 0-10 [facility] Neutrophil percentageOrdered By: Abimbola Cavazos on 11-17-2024 Neutrophils/100 WBC (Bld) 54.5 % 47-70 [facility] Nucleated red blood cell per centageOrdered By: Abimbola Cavazos on 11-17-2024 Nucleated RBC/100 WBC (Bld) [Ratio] 0 % 0-5 [facility] Platelet countOrdered By: Bert Cavazos on 11-17-2024 Platelets (Bld) [#/Vol] 338 10*3/uL 150-450 [facility] Potassium measurementOrdered By: Abimbola Cavazos on 11-17-2024 Potassium [Moles/Vol] 3.7 mmol/L 3.5-5.1 [facility] Protein Fractions Elph [Inte rp]Ordered By: Abimbola Cavazos on 11-17-2024 Protein Electrophoresis Interpret Comment . [facility] Comment on above: Protein electrophore sis scan will follow via computer,mail, or pack worker supervisor delivery. Protein.monoclonal Elph [Mas s/Vol]Ordered By: Abimbola Cavazos on 11-17-2024 Protein Electrophoresis M-J Luis Not Observed g/dL Not Observed [facility] RBC Auto (Bld) [#/Vol]Ordere d By: Abimbola Cavazos on 11-17-2024 RBC (Bld) [#/Vol] 4.69 10*6/uL 4.2-5.4 [facility] Serum anion gap measurementO rdered By: Abimbola Cavazos on 11-17-2024 Anion gap [Moles/Vol] 7 mmol/L 5-15 [facility] Serum globulin measurementOr dered By: Abimbola Cavazos on 11-17-2024 Globulin (S) [Mass/Vol] 3.6 g/dL 2.2-4.2 [facility] Serum or plasma alanine malik otransferase (ALT) measurementOrdered By: Abimbola Cavazos on 11-17-2024 ALT [Catalytic activity/Vol] 26 U/L 13-56 [facility] Serum or plasma albumin karely urement (mass/volume)Ordered By: Abimbola Cavazos on 11-17-2024 Albumin [Mass/Vol] 3.8 g/dL 3.2-5.0 [facility] Serum or plasma alkaline selma sphatase measurementOrdered By: Abimbola Cavazos on 11-17-2024 ALP [Catalytic activity/Vol] 50 U/L 45-117 [facility] Serum or plasma calcium karely urement (mass/volume)Ordered By: Abimbola Cavazos on 11-17-2024 Calcium [Mass/Vol] 9.4 mg/dL 8.5-10.1 [facility] Serum or plasma creatinine m easurement (mass/volume)Ordered By: Abimbola Cavazos on 11-17-2024 Creatinine [Mass/Vol] 0.93 mg/dL 0.55-1.02 [facility] Comment on above: The validity of the calculated GFR & GFRAA in patients over 70 years has not been determined. Clinical correlation is essential. Serum or plasma protein karely urement (mass/volume)Ordered By: Abimbola Cavazos on 11-17-2024 Protein [Mass/Vol] 7.2 g/dL 6.0-8.5 [facility] Serum or plasma urea nitroge n measurement (mass/volume)Ordered By: Abimbola Cavazos on 11-17-2024 Urea nitrogen [Mass/Vol] 9 mg/dL 7-18 [facility] Sodium levelOrdered By: Abimbola Cavazos on 11-17-2024 Sodium [Moles/Vol] 138 mmol/L 136-145 [facility] TSH QnOrdered By: Abimbola Cavzaos on 11-17-2024 Thyroid Stimulating Hormone (TSH) 3.510 uIU/mL 0.358-3.740 [facility] Thyroid Stim Hormone (TSH)on 11-17-2024 TSH 3.510 uIU/mL Normal 0.358-3.740 [facility] Comment on above: Order Comment: Order Date: 11/17/24Order Info: [id number] - CMPOrder Info: [id number] - CRPOrder Info: [id number] - TSH Performed By: #### L 100.0100, L501.4100, L501.4405, L400.0001, L3100.5700, L501.1000, L3100.5800, L501.6710, L3100.5500, L101.9900, L501.1105 #### [facility] [place], [address] Total proteinOrdered By: Helen Cavazos on 11-17-2024 Protein [Mass/Vol] 7.4 g/dL 6.4-8.2 [facility] White blood cell (WBC) count Ordered By: Abimbola Cavazos on 11-17-2024 WBC (Bld) [#/Vol] 6.9 10*3/uL 4.4-11.0 [facility] SMALL BOWEL WITH SCOUTon SMALL BOWEL WITH [address] [address] Patient: EMILIA KIRK Phone#: : 1980 Age: 42 Gender: F Pt. Type: Out Account: [id number] Location: [facility] Ordering: CLAUDIO PAREKH Exam Date: 04/16/2023/10:15 Family Phys: Charge Code: 588101 Physician: Gilmer Order #: [id number] Dose#: PROCEDURE: X-RAY SMALL BOWEL FOLLOW THRU COMPARISON: None. INDICATIONS: Enteritis. TECHNIQUE: Small bowel series was performed in the usual manner. No account specialist abdominal radiograph was performed. TOTAL DOSE: 33.23 mGy FINDINGS: DUODENUM: Normal. No ulceration or diverticulum. JEJUNUM: Normal. Normal motility. No obstruction or visible lesion. ILEUM: Normal. Normal motility. No obstruction or visible lesion. OTHER: Negative. CONCLUSION: 1. There is no evidence of focal abnormality. Dictated by: Concepcion Keita MD on 04/16/2023 at 11:29 Approved by: Concepcion Keita MD on 04/16/2023 at 11:36 Normal [facility] EMERGENCY REPORTon EMERGENCY REPORT [facility] EMERGENCY ROOM REPORT NAME ACCOUNT SEX AGE ADMIT DISCHARGE PT MED. RECORD# NUMBER DATE DATE TYPE YELENA [id number] F 42 01/18/23 01/18/23 Nguyễn Mak [id number] ROOM: ER DATE OF : 1980 DICTATING PHYSICIAN: Colin Barr CHIEF COMPLAINT/HISTORY OF PRESENT ILLNESS: The patient is a 42-year-old female with medical history significant for lupus for which she does not take steroids or immunomodulating drugs and history of hysterectomy. Patient notes that she has had abdominal pain and nausea that started approximately 6 days ago. It has acutely worsened in the last 24 hours. She has associated diarrhea within the last 24 to 48 hours with multiple episodes per day. She feels that because of her nausea she has not been able to drink as much as she would otherwise and feels slightly dehydrated. She had subjective fevers and chills. She has not had associated emesis. She locates her pain towards her lower abdomen and feels that it is slightly worse on the left side. She has not taken anything for pain in several hours. REVIEW OF SYSTEMS: The patient denies any other complaints. PHYSICAL EXAMINATION: GENERAL: Middle aged female who appears uncomfortable. HEENT: Head; normocephalic, atraumatic. Nose; normal. Mouth; moist oral mucosa. CV: Regular rate and rhythm. No murmurs. PULMONARY: Breath sounds normal. No increased work of breathing. No stridor. ABDOMEN: Soft and nondistended. The patient is tender suprapubically with pain in bilateral lower parts of her abdomen but worse on the left. There is no guarding or rebound tenderness. MUSCULOSKELETAL: No lower extremity edema. No deformities. No injuries. NEUROLOGICALLY: Conversationally appropriate. Moves all 4 extremities spontaneously and purposefully. PSYCH: Normal mood and normal behavior. SKIN: Not icteric. No rashes noted. VITAL SIGNS: Temperature 97.8, pulse 93, blood pressure 114/81, respirations 16. Oxygen saturation 96% on room air. MEDICAL DECISION MAKING/EMERGENCY DEPARTMENT COURSE AND TREATMENT: The patient is a 42-year-old female with several days of abdominal pain and diarrhea that has acutely worsened. She is hemodynamically stable. She appears uncomfortable. She does have significant tenderness suprapubically in bilateral lower quadrants but worse on the left. There are no signs of peritonitis. Primary concern is for diverticulitis versus cystitis with lower suspicion for ovarian torsion or urolithiasis. Patient to be evaluated with blood work, urinalysis, and CT abdomen and pelvis. She will be treated for acute pain with Tylenol and Toradol and be given Zofran for nausea. She wanted to avoid opiates at this time. Patient will be reassessed for pain and clinical status after diagnostics are back. Page 1 of 2 YELENA, EMILIA Mak Emergency Room Report EMILIA KIRK : 1980 Patient feels improved after initial dose of nausea meds and pain medications. Her workup does not show significant leukocytosis, elevated lipase or metabolic derangement or increase in AST/ALT. She does have slight increase of creatinine at 1.07 with unknown baseline. Her urinalysis is not consistent with infection and potentially a dirty catch. A urine culture was sent. Her CT abdomen and pelvis showed enteritis and right and left ovarian cysts of approximately 2.5 cm each. She had a hemangioma in her liver. Results were communicated to the patient and she was already aware of these. She did also have enteritis with thickening of her small intestine. Does not show any evidence of diverticulitis or other acute intraabdominal process. This is potentially viral in nature and does not warrant further evaluation or inpatient admission. The patient was nauseous and vomited once after receiving IV contrast. She is to be treated with a dose of IV Reglan. She does feel improved after IV fluids. She was counseled on continuing rehydration at home and is to be discharged with plan for Zofran for nausea and Tylenol and Motrin as needed for pain. 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 PLAN/DISPOSITION: The patient is discharged with return precautions and feels comfortable with this plan. Dictated By: Colin Barr DO 01/18/23 06:52 JOB #: [id number] Transcribed By: [email or web address] 01/18/23 11:23 Electronically signed by: Dr. Colin Barr DO 02/03/23 01:16 Page 2 of 2 EMILIA KIRK Emergency Room Report Normal [facility] EP PanelOrdered By: Dr. Dhruv rios on 01-24-2023 Gastrointestinal pathogens panel ZARA+probe (Stl) [facility] Erythrocyte sedimentation ra teOrdered By: Dr. Cavazos on 01-22-2023 ESR (Bld) [Velocity] 2 mm/h 0-30 [facility] Serum or plasma C reactive p rotein measurement (mass/volume)Ordered By: Dr. Cavazos on 01-22-2023 CRP [Mass/Vol] mg/L 0.0-3.0 [facility] Comment on above: C-Reactive Protein ( CRP) provides useful information for thediagnosis, therapy and monitoring of inflammatory processesand associated diseases. For the evaluation of Relative Riskfor Cardiovascular Disease, a High Sensitivity CRP (HSCRP)should be ordered. BMP with eGFRon 01-18-2023 AGE 42 years Normal [facility] Comment on above: Performed By: #### 2 [id number] #### [facility],[address] [place] [address] Anion gap [Moles/Vol] 17 mmol/L Normal 10 - 20 [facility] Comment on above: Performed By: #### 2 [id number] #### [facility],[address] [place] [address] BMP with eGFR Normal [facility] Comment on above: Result Comment: BASI C METABOLIC PANEL Performed By: #### 2 [id number] #### [place] [address] Calcium [Mass/Vol] 9.3 mg/dL Normal 8.5 - 10.1 [facility] Comment on above: Performed By: #### 2 [id number] #### [facility],[address] [place], [place] [id number] Chloride [Moles/Vol] 105 mmol/L Normal 98 - 107 [facility] Comment on above: Performed By: #### 2 [id number] #### [place] [id number] CO2 [Moles/Vol] 23.4 mmol/L Normal 21.0 - 32.0 [facility] Comment on above: Performed By: #### 2 13820 #### [facility],[address] [place], [place] [id number] Creatinine [Mass/Vol] 1.07 mg/dL High 0.55 - 1.02 [facility] Comment on above: Performed By: #### 2 [id number] #### [facility],[address] [place] [id number] eGFR 57 ML/MINUTE Low 60 - 999 [facility] Center Comment on above: Performed By: #### 2 79513 #### [facility],[address] [place] [address]80 GFR/1.73 sq M.predicted among non-blacks MDRD (S/P/Bld) [Vol rate/Area] mL/min/{1.73_m2} Normal 60 - 999 [facility] Comment on above: Result Comment: ACCO RDING TO THE NATIONAL KIDNEY DISEASE EDUCATION PROGRAM(NKDE), A NORMAL eGFR IS A VALUE GREATER THAN OR EQUAL TO 60 ML/MIN/1.73 SQ METERS. CHRONIC KIDNEY DISEASE: <60mL/MIN/1.73 SQ METERS KIDNEY FAILURE: <15mL/MIN/1.73 SQ METERS THIS TEST SHOULD ONLY BE USED FOR PATIENTS 18 YEARS OF AGE AND OLDER. Performed By: #### 2 69048 #### [address] [address] Glucose [Mass/Vol] 92 mg/dL Normal 74 - 106 [facility] Comment on above: Performed By: #### 2 53564 #### [facility],[address] [place] [address]52 Potassium [Moles/Vol] 3.4 mmol/L Low 3.5 - 5.1 [facility] Comment on above: Performed By: #### 2 51760 #### [address] [address] Sodium [Moles/Vol] 142 mmol/L Normal 136 - 145 [facility] Comment on above: Performed By: #### 2 07242 #### [address] [address] Urea nitrogen [Mass/Vol] 11 mg/dL Normal 7 - 18 [facility] Comment on above: Performed By: #### 2 01793 #### [facility],[address] [place] [address] 57016 CBC + DIFFon 01-18-2023 Baso # 0.10 x10EE3/UL Normal 0.00 - 0.10 [facility] Comment on above: Performed By: #### 2 07739 #### [facility],[address] [place] [address] 88398 Basophils/100 WBC (Bld) 1.0 % Normal 0.0 - 2.0 [facility] Comment on above: Performed By: #### 2 86584 #### [facility],[address] [place] [address] 60795 CBC + DIFF Normal [facility] Comment on above: Result Comment: CBC- COMPLETE BLOOD COUNT Performed By: #### 2 32649 #### [facility],[address] [place] [address] 64783 EO # 0.80 x10EE3/UL High 0.00 - 0.50 [facility] Comment on above: Performed By: #### 2 07092 #### [facility],[address] [place] [address] 72735 Eosinophils/100 WBC (Bld) 8.7 % High 0.0 - 7.0 [facility] Comment on above: Performed By: #### 2 16701 #### [facility],[address] [place] [address]1895 Erythrocyte distribution width (RBC) [Ratio] 13.3 % Normal 12.0 - 15.6 [facility] Comment on above: Performed By: #### 2 67792 #### [facility],[address] [place] [address] 35152 Hematocrit (Bld) [Volume fraction] 45.8 % Normal 34.0 - 46.0 [facility] Comment on above: Performed By: #### 2 03469 #### [facility],[address] [place] [address] 83250 Hemoglobin (Bld) [Mass/Vol] 15.7 g/dL Normal 12.0 - 16.0 [facility] Comment on above: Performed By: #### 2 80667 #### [facility],[address] [place], [place] [id number] Lymph # 3.00 x10EE3/UL High 0.80 - 2.80 [facility] Comment on above: Performed By: #### 2 21264 #### [facility],[address] [place] [address] 93306 Lymphocytes/100 WBC (Bld) 35.0 % Normal 20.0 - 45. 0 [facility] Comment on above: Performed By: #### 2 75205 #### [facility],[address] [place], [place] [id number] MANUAL DIFF N/A Normal [facility] Comment on above: Performed By: #### 2 95227 #### [facility],[address] [place] [address] 63352 MCH (RBC) [Entitic mass] 31 pg Normal 27 - 33 [facility] Comment on above: Performed By: #### 2 42367 #### [facility],[address] [place] [address] 15299 MCHC 34 X10 3 Normal 32 - 36 [facility] Comment on above: Performed By: #### 2 60728 #### [facility],[address] [place] [address] 28366 MCV (RBC) [Entitic vol] 90 fL Normal 80 - 99 [facility] Comment on above: Performed By: #### 2 05295 #### [facility],[address] [place] [address]30 Posey # 0.60 x10EE3/UL Normal 0.20 - 1.00 [facility] Comment on above: Performed By: #### 2 77022 #### [facility],[address] [place] [address]80 MONOS % 7.5 % Normal 0.0 - 10.0 [facility] Comment on above: Performed By: #### 2 01889 #### [facility],[address] [place] [address] 71574 Morphology José Miguel (Bld) [Interp] N/A Normal [facility] Comment on above: Performed By: #### 2 68305 #### [facility],[address] [place] [address] 22543 Neut # 4.10 x10EE3/UL Normal 1.50 - 7.10 [facility] Comment on above: Performed By: #### 2 32941 #### [facility],[address] [place] [address] 88816 Neutrophils/100 WBC (Bld) 47.8 % Normal 46.0 - 76. 0 [facility] Comment on above: Performed By: #### 2 51168 #### [facility],[address] [place] [address] 17413 PLATELET 304 x10EE3/UL Normal 150 - 450 [facility] Comment on above: Performed By: #### 2 53338 #### [facility],[address] [place] [address] 48897 Platelet mean volume (Bld) [Entitic vol] 8.1 fL Normal 6.6 - 10.5 [facility] Comment on above: Result Comment: AUTO MATED DIFFERENTIAL Performed By: #### 2 66440 #### [facility],[address] [place] [address] 38835 RBC 5.10 x 10EE6/UL Normal 4.10 - 5.30 [facility] Comment on above: Performed By: #### 2 80095 #### [facility],[address] [place] [address] 12597 WBC 8.6 x 10EE3/UL Normal 4.5 - 10.8 [facility] Comment on above: Performed By: #### 2 93644 #### [facility],[address] [place] [address] ABDOMEN/PELVIS Won 2022 CT ABDOMEN/PELVIS [address] [address] Patient: EMILIA KIRK Phone#: : 1980 Age: 42 Gender: F Pt. Type: ER Account: [id number] Location: 052 Ordering: DR. COLIN BARR Exam Date: 01/18/2023/4:23 Family Phys: ABIMBOLA CAVAZOS Charge Code: 077607 Physician: Gilmer Order #: [id number] Dose#: 10.4 mGy PROCEDURE: CT ABDOMEN/PELVIS WITH CONTRAST COMPARISON: None. INDICATIONS: Abdominal pain. TECHNIQUE: After obtaining the patient's consent, CT images were created with non-ionic intravenous contrast material. All CT scans at this facility use dose modulation, iterative reconstruction, and/or weight based dosing when appropriate to reduce radiation dose to as low as reasonably achievable. IV CONTRAST: Omnipaque 350,80ml TOTAL DOSE: 10.4 CTDIvol(mGy) FINDINGS: LIVER: There is a 6.9 centimeter focus of mixed attenuation in the right hepatic lobe. There does appear to be peripheral vascularity. Possibility of hemangioma is raised although other etiology cannot be excluded. Similar finding is partially visualized on prior chest CT. BILIARY: Normal. No visible dilatation or calcification. PANCREAS: Normal. No lesion, fluid collection, ductal dilatation, or atrophy. SPLEEN: Normal. No enlargement or focal lesion. KIDNEYS: Normal. No mass, obstruction, or calcification. ADRENALS: Normal. No mass or enlargement. AORTA/VASCULAR: Normal. No aneurysm or dissection. RETROPERITONEUM: Normal. No mass or adenopathy. BOWEL/MESENTERY: Small-bowel mucosal thickening is present consistent with enteritis. ABDOMINAL WALL: Normal. No mass or hernia. URINARY BLADDER: Normal. No visible focal wall thickening, lesion, or calculus. PELVIC NODES: Normal. No adenopathy. PELVIC ORGANS: Bilateral adnexal cysts are present measuring 2.9 centimeters on the right and 2.6 centimeters on the left. The uterus is absent. BONES: Normal. No bony lesion or fracture. Continued Report - Page 2 of 2 Patient: EMILIA KIRK Phone#: : 1980 Age: 42 Gender: F Pt. Type: ER Account: [id number] Location: 052 Ordering: DR. COLIN BARR Exam Date: 01/18/2023/4:23 Family Phys: ABIMBOLA CAVAZOS Charge Code: 906214 Physician: Gilmer Order #: [id number] Dose#: 10.4 mGy LUNG BASES: Normal. No visible pulmonary or pleural disease. OTHER: Negative. CONCLUSION: 1. Findings consistent with enteritis. 2. Bilateral adnexal cysts are present 3. Hypoattenuating mixed density focus in the right hepatic lobe is present and was partially visualized on prior examinations of the thorax, likely hemangioma. Dictated by: Concepcion Keita MD on 01/18/2023 at 6:03 Approved by: Concepcion Keita MD on 01/18/2023 at 6:17 Normal [facility] URINALYSISon 01-18-2023 Amorphous NONE Normal [facility] Comment on above: Performed By: #### 2 93094 #### [facility],[address] [place] [address] Bacteria TRACE Normal [facility] Comment on above: Performed By: #### 2 39194 #### [facility],[address] [place] [address] Bilirubin Ql (U) Negative Normal NORMAL: NEGATIVE [facility] Comment on above: Performed By: #### 2 91467 #### [facility],[address] [place] [address] Casts NONE Normal [facility] Comment on above: Performed By: #### 2 46564 #### [facility],[address] [place] [address] Clarity (U) clear Normal NORMAL: CLEAR [facility] Comment on above: Performed By: #### 2 05546 #### [facility],[address] [place] [address] 19416 Color (U) p.yel Normal NORMAL: YELLOW [facility] Comment on above: Performed By: #### 2 10508 #### [facility],[address] [place] [address] 90584 Crystals LM Nom (Urine sed) NONE Normal [facility] Comment on above: Performed By: #### 2 21953 #### [facility],[address] [place] [address] 47116 Epi Cells OCC Normal [facility] Comment on above: Performed By: #### 2 80682 #### [facility],[address] [place], [place] [id number] Glucose Ql (U) NORM Normal NORMAL: NORMAL [facility] Comment on above: Performed By: #### 2 85045 #### [facility],[address] [place], [place] [address] Hemoglobin Ql (U) 10 Abnormal NORMAL: NEGATIVE [facility] Comment on above: Performed By: #### 2 53572 #### [facility],[address] [place] [address] 53868 Ketone Negative Normal NORMAL: NEGATIVE [facility] Comment on above: Performed By: #### 2 84191 #### [facility],[address] [place] [address] Leukocytes Negative Normal NORMAL: NEGATIVE [facility] Comment on above: Performed By: #### 2 70712 #### [facility],[address] [place] [address]36 Mucous NONE Normal [facility] Comment on above: Performed By: #### 2 79576 #### [facility],[address] [place] [address]309 Nitrite Ql (U) Negative Normal NORMAL: NEGATIVE [facility] Comment on above: Performed By: #### 2 25127 #### [facility],[address] [place] [address] pH (U) 7 [pH] Normal NORMAL: 5.0-8.0 [facility] Comment on above: Performed By: #### 2 15051 #### [facility],[address] [place] [address] Protein Ql (U) Negative Normal NORMAL: NEGATIVE [facility] Comment on above: Performed By: #### 2 03430 #### [facility],[address] [place] [address] Rbc 0-5 Normal 0-3/hpf [facility] Comment on above: Performed By: #### 2 35591 #### [facility],[address] [place] [address] Sp Emerson 1.010 Normal NORMAL: 1.010-1.030 [facility] Comment on above: Performed By: #### 2 15919 #### [facility],[address] [place] [address] Specimen Type Clean catch Normal [facility] Comment on above: Performed By: #### 2 06539 #### [facility],[address] [place] [address] Urinalysis dipstick W Reflex Microscopic panel (U) SEE BELOW Normal [facility] Comment on above: Result Comment: MICR OSCOPIC Performed By: #### 2 98661 #### [facility],[address] [place] [address] Urobilinog NORM Normal NORMAL: NORMAL [facility] Comment on above: Performed By: #### 2 70679 #### [facility],[address] [place] [address] Wbc NONE Normal 0-5/hpf [facility] Comment on above: Performed By: #### 2 28652 #### [facility],[address] [place] [address] Yeast NONE Normal [facility] Comment on above: Performed By: #### 2 51923 #### [facility],[address] [place] [address]145 URINE CULTURE [CCL]on 2022 Bacteria identified Cx Nom (U) URCUL See Results Below See Below CULTURE, URINE NORMAL UROGENITAL LENA <10,000 CFU/ml Normal urogenital lena SOURCE: URINE [facility] [address] [place] [address] Dami Gavin III, M.D. [id number] Normal [facility] Comment on above: Performed By: #### 2 51425 #### [facility],[address] [place] [address]38 Throat specimen bacteria ana ntification by cultureOrdered By: Keshia Pires on 11-21-2022 Bacteria identified Cx Nom (Throat) streptococcus isolated. [facility] DNAon 09-02-2022 ds DNA Ab Neg 10 Normal Neg 10 [facility] ([place]) Comment on above: Result Comment: DNA Screen and Titer methodology is an immunofluorescent technique utilizing Crithidia luciliae Substrate. Performed By: #### A TYSHAWN, MIREYA #### [address] [address] B12on 08-29-2022 Cobalamin (Vitamin B12) [Mass/Vol] 469 pg/mL Normal 211-911 [facility] ([place]) Comment on above: Performed By: #### D NA, B12, C3C4A, FOL #### [facility] [address] [place] [address] [id number] 08-29-2022 Complement C3A 96.0 mg/dL Normal 90.0-170.0 [facility] ([place]) Comment on above: Result Comment: No te - New Reference Range in effect 20 Performed By: #### A TYSHAWN, MIREYA #### [facility] [address] [place] [address] Complement C4A 29.0 mg/dL Normal 16.0-38.0 [facility] ([place]) Comment on above: Performed By: #### A TYSHAWN, MIREYA #### [place] [address] FOLon 08-29-2022 Folate >48.00 High 5.38-24.00 [facility] ([place]) Comment on above: Performed By: #### D NA, B12, C3C4A, FOL #### [place] [address] [id number] 02-28-2022 Complement C3A 100.0 mg/dL Normal 90.0-170.0 [facility] ([place]) Comment on above: Result Comment: No te - New Reference Range in effect 20 Performed By: #### C 3C4A, DNA #### [place] [address] Complement C4A 29.0 mg/dL Normal 16.0-38.0 [facility] ([place]) Comment on above: Performed By: #### C 3C4A, DNA #### [place] [address] DNAon 02-28-2022 ds DNA Ab Neg 10 Normal Neg 10 [facility] ([place] Comment on above: Result Comment: DNA Screen and Titer methodology is an immunofluorescent technique utilizing Crithidia luciliae Substrate. Performed By: #### C 3C4A, DNA #### [place] [address] MISCon 12-03-2021 Misc. Send Out See Comments [facility] ([place] Comment on above: Order Comment: RNA P olymerase 3 Antibody Result Comment: Comp lete reference lab report scanned to EMR. Performed By: #### M ISC #### [place] [address] MISCon 12-02-2021 Misc. Send Out See Comments [facility] ([place] Comment on above: Order Comment: SCL 7 0 AB Result Comment: Comp lete reference lab report scanned to EMR. Performed By: #### M ISC, DNA, C3C4A #### [place] [address] DNAon 11-29-2021 ds DNA Ab Neg 10 Normal Neg 10 [facility] ([place] Comment on above: Result Comment: DNA Screen and Titer methodology is an immunofluorescent technique utilizing Crithidia luciliae Substrate. Performed By: #### M ISC, DNA, C3C4A #### [address] [address] .ANATon 11-28-2021 MIREYA Pattern 1 Homogeneous Normal [facility] ([place]) Comment on above: Result Comment: At A [facility], an MIREYA titer of 160 or greater suggests connective tissue disease but should not be considered diagnostic. The MIREYA result should be considered in combination with other serological results and the clinical history of the patient. HOMOGENEOUS: Suggests systemic lupus erythematosis or drug-induced lupus. Low titers may be seen in other rheumatoid diseases. SUPPLEMENTAL TESTS: Anti-DNA, Complement C3 C4, Histone Ab (if patient is receiving hydralazine or procainamide). Performed By: #### A TYSHAWN, MIREYA #### [place] [address] MIREYA Titer 1 320 Normal [facility] ([place] Comment on above: Performed By: #### A TYSHAWN, MIREYA #### [place] [address] ANAon 11-28-2021 MIREYA See Titer Normal Neg 40 [facility] ([place] Comment on above: Result Comment: MIREYA Screen and Titer methodology is an immunofluorescent technique utilizing Hep2 Substrate. Performed By: #### A TYSHAWN, MIREYA #### [place] [address] [id number] 11-28-2021 Complement C3A 114.0 mg/dL Normal 90.0-170.0 [facility] ([place] Comment on above: Result Comment: No te - New Reference Range in effect 20 Performed By: #### M ISC, DNA, C3C4A #### [place] [id number] Complement C4A 30.0 mg/dL Normal 16.0-38.0 [facility] ([place] Comment on above: Performed By: #### M ISC, DNA, C3C4A #### [place] [id number] Vital Signs Date Time Vital Sign Value Performing Clinician Facility 06-18-2025 12:38-0400 Body mass index (BMI) [Ratio] 24.26 kg/m2 Kush Swank QUILTING SUPERVISOR.TUBING SUPERVISOR Work Phone: [facility] 06-18-2025 12:38-0400 Body temperature 98.1 [degF] Kush Swank QUILTING SUPERVISOR.TUBING SUPERVISOR Work Phone: [facility] 06-18-2025 12:38-0400 Body weight 64.1 kg Kush Swank QUILTING SUPERVISOR.TUBING SUPERVISOR Work Phone: [facility] 06-18-2025 12:38-0400 Diastolic blood pressure 70 mm[Hg] Kush Swank QUILTING SUPERVISOR.TUBING SUPERVISOR Work Phone: [facility] 06-18-2025 12:38-0400 Heart rate 89 /min Kush Swank QUILTING SUPERVISOR.TUBING SUPERVISOR Work Phone: [facility] 06-18-2025 12:38-0400 Respiratory rate 16 /min Kush Swank QUILTING SUPERVISOR.TUBING SUPERVISOR Work Phone: [facility] 06-18-2025 12:38-0400 SaO2% (BldA) [Mass fraction] 99 % Kush Swank QUILTING SUPERVISOR.TUBING SUPERVISOR Work Phone: [facility] 06-18-2025 12:38-0400 Systolic blood pressure 114 mm[Hg] Kush Swank QUILTING SUPERVISOR.TUBING SUPERVISOR Work Phone: [facility] 06-14-2025 13:08-0400 Body height 162.[address] Abimbola Cavazos MD Work Phone: [facility] 06-14-2025 13:08-0400 Body mass index (BMI) [Ratio] 24.4 kg/m2 Dr. Abimbola Cavazos MD Work Phone: [facility] 06-14-2025 13:08-0400 Body temperature 98.2 [degF] Dr. Abimbola Cavazos MD Work Phone: [facility] 06-14-2025 13:08-0400 Body weight 64.[address] Abimbola Cavazos MD Work Phone: [facility] 06-14-2025 13:08-0400 Diastolic blood pressure 82 mm[Hg] Dr. Abimbola Cavazos MD Work Phone: [facility] 06-14-2025 13:08-0400 Heart rate 70 /min Dr. Abimbola Cavazos MD Work Phone: [facility] 06-14-2025 13:08-0400 Respiratory rate 16 /min Dr. Abimbola Cavazos MD Work Phone: [facility] 06-14-2025 13:08-0400 SaO2% (BldA) [Mass fraction] 98 % Dr. Abimbola Cavazos MD Work Phone: [facility] 06-14-2025 13:08-0400 Systolic blood pressure 126 mm[Hg] Dr. Abimbola Cavazos MD Work Phone: [facility] 12-07-2024 13:06-0500 Body mass index (BMI) [Ratio] 25.69 kg/m2 Anson Magallanes APRN.TUBING SUPERVISOR Work Phone: [facility] 12-07-2024 13:06-0500 Body temperature 97.59 [degF] Anson Magallanes APRN.TUBING SUPERVISOR Work Phone: [facility] 12-07-2024 13:06-0500 Body weight 67.9 kg Anson Magallanes APRN.TUBING SUPERVISOR Work Phone: [facility] 12-07-2024 13:06-0500 Diastolic blood pressure 72 mm[Hg] Anson Magallanes APRN.TUBING SUPERVISOR Work Phone: [facility] 12-07-2024 13:06-0500 Heart rate 83 /min Anson Magallanes APRN.TUBING SUPERVISOR Work Phone: [facility] 12-07-2024 13:06-0500 Respiratory rate 18 /min Anson Magallanes APRN.TUBING SUPERVISOR Work Phone: [facility] 12-07-2024 13:06-0500 SaO2% (BldA) [Mass fraction] 98 % Anson Albert QUILTING SUPERVISOR.TUBING SUPERVISOR Work Phone: [facility] 12-07-2024 13:06-0500 Systolic blood pressure 110 mm[Hg] Anson Magallanes QUILTING SUPERVISOR.TUBING SUPERVISOR Work Phone: [facility] 06-25-2023 08:07-0400 Body temperature 97.9 [degF] Lito Martines QUILTING SUPERVISOR.TUBING SUPERVISOR Work Phone: [facility] 06-25-2023 08:07-0400 Body weight 63.05 kg Lito Martines QUILTING SUPERVISOR.TUBING SUPERVISOR Work Phone: [facility] 06-25-2023 08:07-0400 Diastolic blood pressure 78 mm[Hg] Lito Martines QUILTING SUPERVISOR.TUBING SUPERVISOR Work Phone: [facility] 06-25-2023 08:07-0400 Heart rate 78 /min Lito Martines QUILTING SUPERVISOR.TUBING SUPERVISOR Work Phone: [facility] 06-25-2023 08:07-0400 Respiratory rate 18 /min Lito Martines QUILTING SUPERVISOR.TUBING SUPERVISOR Work Phone: [facility] 06-25-2023 08:07-0400 SaO2% (BldA) [Mass fraction] 98 % Lito Martines QUILTING SUPERVISOR.TUBING SUPERVISOR Work Phone: [facility] 06-25-2023 08:07-0400 Systolic blood pressure 118 mm[Hg] Lito Martines QUILTING SUPERVISOR.TUBING SUPERVISOR Work Phone: [facility] Encounters Encounter Date Encounter Type Care Provider Facility Start: 06-22-2025 End: 06-22-[address] Abimbola Cavazos MD Work Phone: [facility] Start: 06-22-2025 End: 06-22-[address] Abimbola Cavazos MD -[facility] Work Phone: Start: 06-22-2025 End: 06-22-2025 ambulatory Abimbola Cavazos Facility:[facility] Start: 06-18-2025 End: 06-18-2025 Patient encounter procedure Kush Montgomery QUILTING SUPERVISOR.TUBING SUPERVISOR Work Phone: [facility] Comment on above: Acute non-recurrent maxillary sinusitis (Primary Dx); Mild intermittent asthma without complication (HCC) Start: 06-18-2025 End: 06-18-2025 ambulatory ABIMBOLA CAVAZOS Facility:[facility] Start: 06-14-2025 End: 06-14-2025 Patient encounter procedure Jed Somers [place] -[facility] Work Phone: Start: 06-14-2025 End: 06-14-[address] Abimbola Cavazos MD Work Phone: -[facility] Start: 02-17-2025 End: 02-17-[address] Abimbola Cavazos MD Work Phone: [facility] Work Phone: Start: 02-17-2025 End: 02-17-2025 Patient encounter procedure VERONICA SAM MD -Laboratory, [facility] Work Phone: Start: 02-17-2025 End: 02-17-2025 ambulatory VERONICA SAM Facility:[facility] Start: 12-07-2024 End: 12-07-2024 Patient encounter procedure Anson Magallanes APRN.TUBING SUPERVISOR Work Phone: [facility] Comment on above: Urinary frequency (P rimary Dx); Rhinosinusitis Start: 12-07-2024 End: 12-07-2024 ambulatory ABIMBOLA CAVAZOS Facility:[facility] Start: 11-17-2024 End: 11-17-[address] [facility] Start: 11-17-2024 End: 11-17-2024 ambulatory Abimbola Cavazos Facility:[facility] Start: 12-17-2023 End: 12-17-2023 ambulatory [place] [facility] Work Phone: Start: 12-17-2023 End: 12-17-2023 Patient encounter procedure [facility]Out[facility] Breast Imaging Work Phone: Start: 06-30-2023 End: 06-30-2023 ambulatory [facility] Work Phone: Start: 06-30-2023 End: 06-30-2023 [facility] Work Phone: Start: 06-25-2023 End: 06-25-2023 Patient encounter procedure Lito Martines APRN.TUBING SUPERVISOR Work Phone: [facility] Comment on above: Sinobronchitis (Prim omer Dx) Start: 04-16-2023 End: 04-16-2023 ambulatory [facility] Start: 01-24-2023 End: 01-24-2023 ambulatory [facility] Work Phone: Start: 01-24-2023 End: 01-24-2023 Patient encounter procedure [facility]Laboratory, Specimen Start: 01-22-2023 End: 01-22-2023 ambulatory [facility] Work Phone: Start: 01-22-2023 End: 01-22-2023 [facility] Start: 01-18-2023 End: 01-18-2023 Emergency department patient visit ABIMBOLA Guevara CAVAZOS [facility] Start: 11-19-2022 End: 11-19-2022 ambulatory [facility] Work Phone: Start: 11-19-2022 End: 11-19-2022 [facility] Start: 08-29-2022 End: 09-03-2022 ambulatory VERONICA SAM MD. Facility:A Start: 08-19-2022 End: 08-19-2022 ambulatory [facility] Work Phone: Start: 08-19-2022 End: 08-19-2022 Patient encounter procedure [facility] Start: 02-27-2022 End: 03-04-2022 ambulatory VERONICA SAM MD. Facility:A Start: 11-27-2021 End: 12-02-2021 ambulatory VERONICA SAM MD. Facility:A Start: 05-06-2017 Ambulatory PHY WO ID REFERRING Fac ility:[facility] Procedures Date Procedure Procedure Detail Performing Clinician Start: 06-22-2025 X-ray of chest, PA a nd lateral views Dr. Abimbola Cavazos MD Work Phone: Start: 02-17-2025 C>3< complement assay D sandee Cavazos MD Work Phone: Comment on above: Performed at: [place] [id number] Director: Claudio Carrion PhD, Phone: [phone] Start: 02-17-2025 Urnls dip stick/tabl et reagent auto microscopy Dr. Abimbola Cavazos MD Work Phone: Start: 12-07-2024 Urnls dip stick/tabl et rgnt auto w/o microscopy Lynda Rosario APRN.CNP Work Phone: Start: 12-17-2023 Screening mammography Start: 06-30-2023 Plain chest X-ray Start: 01-18-2023 Urinalysis ABIMBOLA CAVAZOS Comment on above: Result Comment: URIN ALYSIS Performed By: #### [id number] #### [facility],[address] [place] [address] Start: 08-19-2022 Screening mammography Bacteria identificat ion test Bacteria identificat ion test Enteric Bacteriology Plan of Treatment Date Care Activity Detail Author Start: 07-10-2025 Influenza vaccination Influenza Vacc ine (#1) [facility] Start: 07-10-2024 Covid-19 Vaccine ( season) Covid-19 Vaccine ( season) [facility] Start: 07-10-2024 Influenza vaccination Influenza Vacc ine (#1) [facility] Start: 07-10-2023 Influenza vaccination INFLUENZA (#1) [facility] Start: 11-09-2022 DEPRESSION ASSESSMENT DEPRESSION ASS ESSMENT [facility] Start: 2022 Mammography MAMMOGRAM [facility] Start: 2022 Screening for malign ant neoplasm of breast Mammogram Screening [facility] Start: 09-17-2021 COVID-19 VACCINE (3 - Pfizer series) COVID-19 VACCINE (3 - Pfizer series) [facility] Start: 06-27-2019 PAP TESTING PAP TESTING [facility] Start: 06-18-2017 HPV TESTING HPV TESTING [facility] Start: 06-27-2015 Screening for malign ant neoplasm of cervix Cervical Cancer Screening [facility] Start: 2009 HPV Vaccine (1 - Ris k 3-dose SCDM series) HPV Vaccine (1 - Risk 3-dose SCDM series) [facility] Start: 2001 Hepatitis B Vaccine (1 of 3 - 19+ 3-dose series) Hepatitis B Vaccine (1 of 3 - 19+ 3-dose series) [facility] Start: 2001 Urine microalbumin profile [facility] Start: 2000 Anxiety Screening Anxiety Screening [facility] Start: 2000 Depression Screening Depression Scre ening [facility] Start: 2000 HEPATITIS C SCREENING HEPATITIS C [facility] Start: 2000 Hepatitis C screening Hepatitis C [facility] Start: 2000 HIV SCREENING HIV SCREENING [facility] Start: 2000 HIV screening HIV Screening [facility] Start: 1982 HEPATITIS B (1 of 3 - 3-dose series) HEPATITIS B (1 of 3 - 3-dose series) [facility] Bacteria identified in Urine by Culture BACTERIAL CULTURE, URINE Microbiology Routine Urinary frequency Ordered: 12/07/2024 [facility] Work Phone: Comment on above: Ordered: 12/07/2024 Ova and parasites identified in Unspecified specimen by Light microscopy [facility] Immunizations Immunization Date Immunization Notes Care Provider Delonte nichols 08-14-2022 influenza virus vaccine, unspecified formulation Anson Magallanes APRN.CNP Work Phone: [facility] 08-07-2017 influenza, injectabl e, quadrivalent, preservative free [facility] 08-07-2017 influenza, seasonal, injectable [facility] Payers Date Payer Category Payer Self-pay [id number] 2023 Private Health Insurance [employer] [id number] 2023 Unknown [employer] PPO [id number] 2023-Present [phone] [address] [place] [address] PPO [id number] 2014 Unknown [id number] 2014 Unknown [id number] 1980 Unknown [id number] 1980 Unknown [id number] 1982 Unknown [id number] 1982 Unknown [id number] 1980 Unknown [id number] Unknown [id number] Unknown [id number] Unknown [id number] Unknown [id number] Social History Date Type Detail Facility Start: 07-31-2021 End: 07-31-2021 Tobacco smoking status MOIS Unknown if ever smoked [facility] Start: 1980 Sex Assigned At Female [facility] Start: 11-05-2011 End: 07-31-2021 Tobacco smoking status NHIS Never smoked tobacco [facility] Start: 11-05-2011 Tobacco use and exposure Smokeless tobacco non-user [facility] Start: 06-25-2023 End: 06-18-2025 Alcohol intake Current non-drinker of alcohol (finding) [facility] Start: 06-25-2023 End: 06-18-2025 History of Social function [facility] Start: 06-25-2023 End: 06-18-2025 Tobacco use panel [facility] Start: 1980 Sex Assigned At Not on file [facility] Start: 02-23-2025 Sex Female (finding) [facility] Start: 10-10-2012 Sex Female [facility] Functional Status Date Assessment Result Facility 05-22-2015 Are you deaf, or do you have serious difficulty hearing No 05/22/2015 5:14 PM Aylin Gusman MA No [facility] 05-22-2015 Are you blind, or do you have serious difficulty seeing, even when wearing glasses No 05/22/2015 5:14 PM Aylin Gusman MA No [facility] 05-22-2015 Do you have serious difficulty walking or climbing stairs No 05/22/2015 5:14 PM Aylin Gusman MA No [facility] 05-22-2015 Do you have difficul ty dressing or bathing No 05/22/2015 5:14 PM Aylin Gusman MA No [facility] 05-22-2015 Because of a physica l, mental, or emotional condition, do you have difficulty doing errands alone such as visiting a physician's office or shopping No 05/22/2015 5:14 PM Aylin Gusman MA No [facility] Mental Status Date Assessment Result Facility 05-22-2015 Because of a physica l, mental, or emotional condition, do you have serious difficulty concentrating, remembering, or making decisions No 05/22/2015 5:14 PM EDT Aylin Dacosta, JESÚS No [facility] Clinical Notes 02-20-2016 to 06-22-2025 Patient InstructionsKush Montgomery APRN.TUBING SUPERVISOR - 06/18/2025 1:14 PM EDTAnson Magallanes APRN.TUBING SUPERVISOR - 12/07/2024 1:20 PM ESTPatient InstructionsLito Martines APRN.TUBING SUPERVISOR - 06/25/2023 8:15 AM EDT Note Date & Type Note Facility 06-22-2025 Radiology Diagnostic study note [facility] Imaging Services [address], [place] [address] Chest PA and Lateral MR#: [id number] Acct: [id number] Name: EMILIA GALLEGO Rep #: [id number] : 1980 F 45 From: Ida Garcia MD PCP: Dr. Abimbola Cavazos MD Status: REG CLI Study:Chest PA and Lateral Date of Exam: 06/22/25 Exam# [id number] Ordering Dr: Bert Cavazos MD PROCEDURE: CHEST PA AND LATERAL 06/22/2025 REASON FOR EXAM: ONGOING BRONCHITIS TECHNIQUE: CHEST PA AND LATERAL COMPARISON: Chest x-ray 06/30/2023 FINDINGS: Heart: The heart size is normal. Mediastinum: The mediastinal contour is unremarkable. Lungs: Mild bibasilar atelectasis. Bones: Degenerative changes of visualized spine. Other: None RAD/Chest PA and Lateral IMPRESSION: NO ACUTE FINDINGS. Reading Location: [id number] CC: Dr. Abimbola Cavazos MD ~ Reefer Engineer: Signed [facility] 06-18-2025 Kush Quigley APRN.TUBING SUPERVISOR - 06/18/2025 1:34 PM EDT Patient presents with: Sinus Problem I recommend you follow up with your Primary Care Provider (Physician, Nurse Practitioner, or Physician Licensed Embalmer). YOU SHOULD SEEK MEDICAL ATTENTION IMMEDIATELY AT THE NEAREST EMERGENCY DEPARTMENT IF ANY OF THE FOLLOWING OCCURS Call 911 if you have chest pain, heaviness or discomfort Fever (temperature higher than 100.4 F / 38 C) and it doesn't go away or gets worse after 2-3 days of antibiotics Unusual or increasing pain Lightheadedness Feeling sicker at any time or not getting better as expected Can't catch your breath or have shortness of breath Were seen for eye problems and have eye pain, changes/blurring of vision, or the light hurts your eyes and/or you have a fever Were seen for wound/skin infection issues and your wound/infection has increasing redness/swelling/pain, red streaking towards your heart, or green/yellow drainage Were seen for a headache and have any worsening of headache/dizziness or you develop a stiff neck or any other concerns about your headache Were seen for stomach/abdominal complaints and your diarrhea/vomiting/pain worsens and/or you don't urinate in an 8 hour period of time Develop swelling of your lips/face/tongue/throat or think you are having an allergic reaction to any medications Please read all pharmacy handouts regarding possible medication side effects and/or adverse reactions. Call your Primary Care Provider with any questions or concerns. Follow up with your Primary Care Provider if you require any follow up care. Urgent/Express Care and Walk In Clinics do not provide follow up care. documented in this encounter [facility] 06-18-2025 Note HNO ID: [id number] Author: KUSH MONTGOMERY APRN.ARIELLE Service: ? Author Type: Nurse Practitioner Type: Progress Notes Filed: 06/18/2025 13:34 Note Text: URGENT CARE JAMIE Klein Emilia Gallego is a 45 year old female. Patient presents with: Sinus Problem HPI Rhinorrhea: - Persistent rhinorrhea x2 weeks. - Using Sudafed, Amelie, and an unspecified nasal spray prescribed earlier this year. - Denies improvement with current treatments. - Denies recent illness; sister had influenza B in the summer. Cough: - Persistent cough, described as a tickle cough. - Reports chest congestion and productive cough, stating it feels like it's moving in a little bit more. Dyspnea: - Mild wheezing and dyspnea x2 days. Asthma: - History of asthma since childhood. - Last used albuterol inhaler in November. - Has used steroids in the past, which were effective but caused an unpleasant odor. Review of Systems Ears/Nose/Mouth/Throat: (+) rhinorrhea, (+) sinus pain/pressure Respiratory: (+) productive cough, (+) wheezing, (+) shortness of breath PAST MEDICAL HISTORY[1] PAST SURGICAL HISTORY Procedure Laterality Date CATH AND SALINE/CONTRAST SONOHYSTER/HYSTEROSALPI 08/05/10 HSG for infertility DELIVERY ONLY 06/11/11 , low transverse at [place] COLONOSCOPY FLX DX W/COLLJ SPEC WHEN PFRMD 02/20/16 Colonoscopy with mac INSERTION OF IUD 07/2015 IUD REMOVAL 01/22 PAST SURGICAL HISTORY OF 01/25/12 Myomectomy; Needs repeat C/Ss in future UNSPECIFIED ORAL SURGERY PROCEDURE, BY REPORT 1999 wisdom teeth removed ALLERGIES Levaquin [Levofloxacin], Macrobid [Nitrofurantoin Monohyd/M-Cryst], and Percocet [Oxycodone-Acetaminophen] MEDICATIONS topiramate (TOPAMAX) 25 mg tablet TAKE TABLET BY MOUTH DIRECTED IN EVENING FOR 7 DAYS THEN INCREASE TO TWO TABLETS. temazepam (RESTORIL) 30 mg cap TAKE 1 CAPSULE BY MOUTH BEFORE BEDTIME NEEDED FOR SEVERE INSOMNIA. L-METHYLFOLATE 7.5 mg tab Take 1 tablet by mouth once daily. LORazepam (ATIVAN) 0.5 mg tab Take 0.5 mg by mouth as needed. busPIRone (BUSPAR) 10 mg tablet twice daily. PARoxetine (PAXIL) 10 mg tablet twice daily. aspirin, enteric coated (ASPIRIN, ENTERIC COATED) 81 mg EC tablet Take 81 mg by mouth once daily. doxycycline hyclate (VIBRAMYCIN) 100 mg capsule Take 1 capsule by mouth once daily for 7 days. predniSONE (DELTASONE) 20 mg tablet Take 2 tablets by mouth once daily for 7 days. albuterol HFA (PROVENTIL HFA, VENTOLIN HFA) 90 mcg/actuation inhaler Inhale 2 puffs as instructed every 4 hours as needed for wheezing/shortness of breath (Cough). Norethindrone, Contraceptive, (ORTHO MICRONOR) 0.35 mg tablet Take 1 tablet by mouth once daily. (Patient not taking: Reported on 06/18/2025) hydroxychloroquine (PLAQUENIL) 200 mg tablet 300 mg once daily. (Patient not taking: Reported on 06/18/2025) meloxicam (MOBIC) 15 mg tablet Take 15 mg by mouth once daily. (Patient not taking: Reported on 06/18/2025) FAMILY HISTORY[2] SOCIAL HISTORY[3] Objective BP 114/70 Pulse 89 Temp 36.7 ?C (98.1 ?F) (Tympanic) Resp 16 Wt 64.1 kg (141 lb 5 oz) LMP 01/30/2016 SpO2 99% BMI 24.26 kg/m? Physical Exam Constitutional: General: She is not in acute distress. Appearance: Normal appearance. She is normal weight. She is not ill-appearing or toxic-appearing. HENT: Head: Normocephalic and atraumatic. No right periorbital erythema or left periorbital erythema. Jaw: No trismus, tenderness or swelling. Right Ear: Tympanic membrane, ear canal and external ear normal. Left Ear: Tympanic membrane, ear canal and external ear normal. Nose: Congestion and rhinorrhea present. Right Sinus: Maxillary sinus tenderness and frontal sinus tenderness present. Left Sinus: Maxillary sinus tenderness and frontal sinus tenderness present. Mouth/Throat: Mouth: Mucous membranes are moist. Tongue: No lesions. Palate: No mass and lesions. Pharynx: Uvula midline. Posterior oropharyngeal erythema and postnasal drip present. Tonsils: No tonsillar exudate or tonsillar abscesses. Eyes: Pupils: Pupils are equal, round, and reactive to light. Cardiovascular: Rate and Rhythm: Normal rate and regular rhythm. Pulses: Normal pulses. Heart sounds: Normal heart sounds, S1 normal and S2 normal. Pulmonary: Effort: Pulmonary effort is normal. No respiratory distress. Breath sounds: Wheezing present. No rhonchi or rales. Lymphadenopathy: Cervical: No cervical adenopathy. Neurological: Mental Status: She is alert. { 1. Acute non-recurrent maxillary sinusitis (J01.00) 2. Mild intermittent asthma without complication (HCC) (J45.20) - Persistent symptoms >2 weeks with sinus pain, pressure, and cough productive of sputum; mild wheezing and shortness of breath noted on exam. - Start doxycycline; instructed to take 1 pill with food tonight. - Start prednisone. - Start albuterol inhaler; instructed to use every 4-6 h (more content not included)... [facility] 06-18-2025 History of Present illness Narrative URGENT CARE JAMIE Subjective Emilia Gallego is a 45 year old female. Patient presents with: Sinus Problem HPI Rhinorrhea: - Persistent rhinorrhea x2 weeks. - Using Sudafed, Amelie, and an unspecified nasal spray prescribed earlier this year. - Denies improvement with current treatments. - Denies recent illness; sister had influenza B in the summer. Cough: - Persistent cough, described as a tickle cough. - Reports chest congestion and productive cough, stating it feels like it's moving in a little bit more. Dyspnea: - Mild wheezing and dyspnea x2 days. Asthma: - History of asthma since childhood. - Last used albuterol inhaler in November. - Has used steroids in the past, which were effective but caused an unpleasant odor. Review of Systems Ears/Nose/Mouth/Throat: (+) rhinorrhea, (+) sinus pain/pressure Respiratory: (+) productive cough, (+) wheezing, (+) shortness of breath PAST MEDICAL HISTORY[1] PAST SURGICAL HISTORY Procedure Laterality Date CATH & SALINE/CONTRAST SONOHYSTER/HYSTEROSALPI 08/05/10 HSG for infertility DELIVERY ONLY 06/11/11 , low transverse at [place] COLONOSCOPY FLX DX W/COLLJ SPEC WHEN PFRMD 02/20/16 Colonoscopy with mac INSERTION OF IUD 07/2015 IUD REMOVAL 01/22 PAST SURGICAL HISTORY OF 01/25/12 Myomectomy; Needs repeat C/Ss in future UNSPECIFIED ORAL SURGERY PROCEDURE, BY REPORT 1999 wisdom teeth removed ALLERGIES Levaquin [Levofloxacin], Macrobid [Nitrofurantoin Monohyd/M-Cryst], and Percocet [Oxycodone-Acetaminophen] MEDICATIONS topiramate (TOPAMAX) 25 mg tablet TAKE TABLET BY MOUTH DIRECTED IN EVENING FOR 7 DAYS THEN INCREASE TO TWO TABLETS. temazepam (RESTORIL) 30 mg cap TAKE 1 CAPSULE BY MOUTH BEFORE BEDTIME NEEDED FOR SEVERE INSOMNIA. L-METHYLFOLATE 7.5 mg tab Take 1 tablet by mouth once daily. LORazepam (ATIVAN) 0.5 mg tab Take 0.5 mg by mouth as needed. busPIRone (BUSPAR) 10 mg tablet twice daily. PARoxetine (PAXIL) 10 mg tablet twice daily. aspirin, enteric coated (ASPIRIN, ENTERIC COATED) 81 mg EC tablet Take 81 mg by mouth once daily. doxycycline hyclate (VIBRAMYCIN) 100 mg capsule Take 1 capsule by mouth once daily for 7 days. predniSONE (DELTASONE) 20 mg tablet Take 2 tablets by mouth once daily for 7 days. albuterol HFA (PROVENTIL HFA, VENTOLIN HFA) 90 mcg/actuation inhaler Inhale 2 puffs as instructed every 4 hours as needed for wheezing/shortness of breath (Cough). Norethindrone, Contraceptive, (ORTHO MICRONOR) 0.35 mg tablet Take 1 tablet by mouth once daily. (Patient not taking: Reported on 06/18/2025) hydroxychloroquine (PLAQUENIL) 200 mg tablet 300 mg once daily. (Patient not taking: Reported on 06/18/2025) meloxicam (MOBIC) 15 mg tablet Take 15 mg by mouth once daily. (Patient not taking: Reported on 06/18/2025) FAMILY HISTORY[2] SOCIAL HISTORY[3] Objective BP 114/70 Pulse 89 Temp 36.7 C (98.1 F) (Tympanic) Resp 16 Wt 64.1 kg (141 lb 5 oz) LMP 01/30/2016 SpO2 99% BMI 24.26 kg/m Physical Exam Constitutional: General: She is not in acute distress. Appearance: Normal appearance. She is normal weight. She is not ill-appearing or toxic-appearing. HENT: Head: Normocephalic and atraumatic. No right periorbital erythema or left periorbital erythema. Jaw: No trismus, tenderness or swelling. Right Ear: Tympanic membrane, ear canal and external ear normal. Left Ear: Tympanic membrane, ear canal and external ear normal. Nose: Congestion and rhinorrhea present. Right Sinus: Maxillary sinus tenderness and frontal sinus tenderness present. Left Sinus: Maxillary sinus tenderness and frontal sinus tenderness present. Mouth/Throat: Mouth: Mucous membranes are moist. Tongue: No lesions. Palate: No mass and lesions. Pharynx: Uvula midline. Posterior oropharyngeal erythema and postnasal drip present. Tonsils: No tonsillar exudate or tonsillar abscesses. Eyes: Pupils: Pupils are equal, round, and reactive to light. Cardiovascular: Rate and Rhythm: Normal rate and regular rhythm. Pulses: Normal pulses. Heart sounds: Normal heart sounds, S1 normal and S2 normal. Pulmonary: Effort: Pulmonary effort is normal. No respiratory distress. Breath sounds: Wheezing present. No rhonchi or rales. Lymphadenopathy: Cervical: No cervical adenopathy. Neurological: Mental Status: She is alert. { 1. Acute non-recurrent maxillary sinusitis (J01.00) 2. Mild intermittent asthma without complication (HCC) (J45.20) - Persistent symptoms >2 weeks with sinus pain, pressure, and cough productive of sputum; mild wheezing and shortness of breath noted on exam. - Start doxycycline; instructed to take 1 pill with food tonight. - Start prednisone. - Start albuterol inhaler; instructed to use every 4-6 hours, especially before bed and in the morning. - Advised continuation of Sudafed and nasal spray if helpful for congestion. - Discussed potential need for maintenance inhaler if recurrent lower respiratory symptoms develop. and Recording using [employer] software for draft documentation of the visit was discussed with the patient/authorized warehouse representative; all questions welcomed and answered. Patient/authorized warehouse representative agreed to proceed MDM: Patient well appearing nontoxic in no acute respiratory distress 45 year old female that presents with sinusitis, and mild asthma exacerbation. Patient started on doxycyline, prednisone and albuterol. Follow up with PCP, ER if worsening. [1] Past Medical History: 11/2013: Arthritis No date: Dysthymic disorder Comment: Depression (non-psychotic) 01/14/2013: Fatigue No date: Generalized anxiety disorder 2013: H/O supraventricular tachycardia Comment: was on Metoprolol and DC'ed d/t SE and no issues since 07/05/2010: Infertility female No date: Multiple sclerosis ([facility]) Comment: reversed-03/2013 No date: Ovarian cyst No date: Rectal bleeding No date: Unspecified asthma(493.90) Comment: Asthma CHILDHOOD [2] Review of patient's family history indicates: Problem: Breast Cancer Relation: Maternal Grandmother Age of Onset: (Not Specified) Problem: Heart Relation: Father Age of Onset: (Not Specified) Problem: Heart Relation: Paternal Grandfather Age of Onset: (Not Specified) Problem: Thyroid Relation: Mother Age of Onset: (Not Specified) Comment: Hypo; Sjogren's Problem: Alzheimer's Disease Relation: Paternal Grandmother Age of Onset: (Not Specified) Problem: Arthritis Relation: Mother Age of Onset: (Not Specified) Problem: Arthritis Relation: Father Age of Onset: (Not Specified) Problem: Diabetes Relation: Paternal Grandmother Age of Onset: (Not Specified) Problem: Osteoporosis Relation: Mother Age of Onset: (Not Specified) Problem: Multiple Sclerosis Relation: Maternal Uncle Age of Onset: (Not Specified) [3] Social History Tobacco Use Smoking status: Never Smokeless tobacco: Never Substance Use Topics Alcohol use: No Drug use: No documented in this encounter [facility] 12-07-2024 Note HNO ID: [id number] Author: ANSON MAGALLANES APRN.ARIELLE Service: ? Author Type: Nurse Practitioner Type: Progress Notes Filed: 12/07/2024 13:23 Note Text: CC: Patient presents with: Pain, Sinus: Sinus pressure, congestion and drainage x 2 weeks and frequency x 2 days HPI: Emilia Gallego is a 44 year old female who presents to the office with complaint of head congestion and sinus symptoms for 2 weeks. Symptoms are staying the same. Associated symptoms includes nasal congestion and facial pain/pressure. Urinary frequency Denies fever, ear pain, ear pressure , nausea, vomiting , and diarrhea. Treatments tried include nothing so far. with no relief of symptoms. Sick contacts: unknown. History of asthma, frequent episodes of bronchitis, chronic bronchitis, bronchiectasis or COPD: No Smoker: No Seasonal/environmental allergies: No The ROS is otherwise negative. The patient's pmh, medications, allergies, and past visits are reviewed. PHYSICAL EXAM: BP 110/72 Pulse 83 Temp 36.4 ?C (97.6 ?F) (Tympanic) Resp 18 Wt 67.9 kg (149 lb 11.1 oz) LMP 01/30/2016 SpO2 98% BMI 25.69 kg/m? General appearance: alert, cooperative, pleasant, in no acute distress Head: Normocephalic Eyes: EOM's intact, conjunctiva pink and moist, no icterus, sclera white, non-injected Ears: Right ear: External ear/canal- Normal, TM - clear with good landmarks. Left ear: External ear/canal- Normal, TM - clear with good landmarks Oropharynx:moist without lesions, No erythema, exudates or tonsillar hypertrophy. Heart: Negative. RRR without obvious murmur, gallop, or rubs. No ectopy. Lungs: clear to auscultation, without rales or wheeze, good air exchange Abdomen: soft non tender ASSESSMENT/PLAN: 1. Urinary frequency - ICD9: 788.41, ICD10: R35.0 (primary diagnosis) - UA DIP, URINE (POC) - BACTERIAL CULTURE, URINE 2. Rhinosinusitis - ICD9: 473.9, ICD10: J32.9 - DOXYCYCLINE HYCLATE 100 MG TABLET Suspect a UTI at this time due to negative dip but sending the culture just to verify. If positive please treat. Prescription instructions reviewed with patient as applicable. Potential red flag symptoms discussed with the patient. Reviewed appropriate action plan to take if red flag symptoms occur. Patient agreeable to treatment plan. Anson Magallanes APRN.[facility] 12-07-2024 History of Present illness Narrative CC: Patient presents with: Pain, Sinus: Sinus pressure, congestion and drainage x 2 weeks and frequency x 2 days HPI: Emilia Gallego is a 44 year old female who presents to the office with complaint of head congestion and sinus symptoms for 2 weeks. Symptoms are staying the same. Associated symptoms includes nasal congestion and facial pain/pressure. Urinary frequency Denies fever, ear pain, ear pressure , nausea, vomiting , and diarrhea. Treatments tried include nothing so far. with no relief of symptoms. Sick contacts: unknown. History of asthma, frequent episodes of bronchitis, chronic bronchitis, bronchiectasis or COPD: No Smoker: No Seasonal/environmental allergies: No The ROS is otherwise negative. The patient's pmh, medications, allergies, and past visits are reviewed. PHYSICAL EXAM: BP 110/72 Pulse 83 Temp 36.4 C (97.6 F) (Tympanic) Resp 18 Wt 67.9 kg (149 lb 11.1 oz) LMP 01/30/2016 SpO2 98% BMI 25.69 kg/m General appearance: alert, cooperative, pleasant, in no acute distress Head: Normocephalic Eyes: EOM's intact, conjunctiva pink and moist, no icterus, sclera white, non-injected Ears: Right ear: External ear/canal- Normal, TM - clear with good landmarks. Left ear: External ear/canal- Normal, TM - clear with good landmarks Oropharynx:moist without lesions, No erythema, exudates or tonsillar hypertrophy. Heart: Negative. RRR without obvious murmur, gallop, or rubs. No ectopy. Lungs: clear to auscultation, without rales or wheeze, good air exchange Abdomen: soft non tender ASSESSMENT/PLAN: 1. Urinary frequency - ICD9: 788.41, ICD10: R35.0 (primary diagnosis) - UA DIP, URINE (POC) - BACTERIAL CULTURE, URINE 2. Rhinosinusitis - ICD9: 473.9, ICD10: J32.9 - DOXYCYCLINE HYCLATE 100 MG TABLET Suspect a UTI at this time due to negative dip but sending the culture just to verify. If positive please treat. Prescription instructions reviewed with patient as applicable. Potential red flag symptoms discussed with the patient. Reviewed appropriate action plan to take if red flag symptoms occur. Patient agreeable to treatment plan. Anson Magallanes APRN.[employer] documented in this encounter [facility] 06-25-2023 Instructions Lito Martines APRN.ARIELLE - 06/25/2023 [...] or unusual drowsiness. documented in this encounter [facility] 06-25-2023 History of Present illness Narrative Subjective HPI HPI Emilia Gallego is a 43 year old female who [...] DELIVERY ONLY 06/11/11 , low transverse at [place] COLONOSCOPY FLX DX W/COLLJ SPEC WHEN PFRMD [...] 15 MG/5 ML ORAL SOLUTION Lito Martines APRN.TUBING SUPERVISOR documented in this encounter [facility] 02-20-2016 History of Past i llness Narrative Problem Noted Date Diagnosed Date Resolved Date Rectal bleed 02/20/2016 02/20/2016 Fatigue 01/14/2013 02/13/2016 Abdominal pain, right lower quadrant 05/25/2012 02/13/2016 Urgency of urination 11/05/2011 012 Leiomyoma of uterus, unspecified 11/18/2010 05/25/2012 Infertility female 07/05/2010 6 Anemia 07/05/2010 05/25/2012 Metrorrhagia 07/05/2010 05/25/2012 documented as of this encounter (statuses as of 06/25/2023) [facility] noteNo assessment information availableWMiami [facility] Work Phone: Evaluation note* Diagnosis Sinobronchitis- Primary Unspecified sinusitis (chronic) [facility]* Diagnosis Urinary frequency- Primary Rhinosinusitis Unspecified sinusitis (chronic) [facility]* Diagnosis Acute non-recurrent maxillary sinusitis- Primary Mild intermittent asthma without complication (HCC) Unspecified asthma [facility] (narrative)No reason for referral information availableWMiami Valley Hospital Work Phone: Summary Purpose Family History No Family History Records Found Relationship Condition Age at Onset Recorded Date/T savana Not Specified Malignant neoplasm of skin Unknown Diabetes mellitus Unknown Osteoporosis Unknown Anxiety Unknown Arthritis Unknown Autoimmune disease Unknown Depression Unknown Malignant melanoma Unknown Myocardial infarction Unknown Malignant neoplasm of breast Unknown Malignant neoplasm Unknown Disorder of thyroid Unknown Asthma Unknown Advance Directives No Advanced Directives Records Found Advance Directive Response Recorded Date/ Time Advance Directives No July 8:23am Living Will No June 17, 2019 7:43pm Power of Principal Military Analyst No June 17 7:43pm Advance Directive Response Recorded Date/ Time Advance Directives No July 7:23am Living Will No June 17, 2019 6:43pm Power of Principal Military Analyst No June 17 6:43pm Advance Directive Response Recorded Date/ Time Advance Directives No July 8:23am Chief Complaint and Reason for Visit Chief Complaint SCREENING Chief Complaint E ORDER Chief Complaint Acute bronchospasm Chief Complaint Admit Date S/O- EVERY 6MOS February 17, 2025 8:1 6am Chief Complaint Admit Date S/O- EVERY 6MOS February 17, 2025 8:1 6am CONCERN FOR SINUS INFECTION June 14, 2025 12:59pm Chief Complaint Admit Date CONCERN FOR SINUS INFECTION June 14, 2025 12:59pm EORDER June 22, 2025 2: 46pm Additional Source Comments INFORMATION SOURCE (unrecogn ized section and content) DATE CREATED AUTHOR 05/05/2018 [facility] DATE CREATED AUTHOR AUTHOR'S ORGANIZ ATION 09/25/2022 [facility] ([place]) DATE CREATED AUTHOR AUTHOR'S ORGANIZ ATION 04/21/2023 [facility] DATE CREATED AUTHOR AUTHOR'S ORGANIZ ATION 06/19/2025 [facility] DATE CREATED AUTHOR AUTHOR'S ORGANIZ ATION 07/03/2025 [facility] Goals (unrecognized section and content) Goals may be documented in a n alternate sectionGoals may be documented in an alternate sectionGoals may be documented in an alternate sectionGoals may be documented in an alternate sectionGoals may be documented in an alternate sectionGoals may be documented in an alternate sectionGoals may be documented in an alternate sectionGoals may be documented in an alternate sectionGoals may be documented in an alternate section Care Teams (unrecognized sec tion and content) Team Status: Active Member Role Status Dates Dr. Abimbola Cavazos MD Family Provider Active Dr. Abimbola Cavazos MD Primary Care Provider Active Team Status: Inactive Member Role Status Dates Dr. Abimbola Cavazos MD Primary Care Provide r, Attending Provider, Referring Provider Active Team Status: Inactive Member Role Status Dates Dr. Abimbola Cavazos MD Primary Care Provider Active Keshia Pires [employer] Attending Provider, Referr ing Provider Active Team Status: Active Member Role Status Dates Dr. Abimbola Cavazos MD Primary Care Provider Active Abimbola JOYNER MD Attending Provider Active Team Status: Inactive Member Role Status Dates Dr. Abimbola Cavazos MD Primary Care Provider Active Abimbola JOYNER MD Attending Provider Active Business Dean Relationship Specialty Start Date End Date Abimbola Cavazos MD [address] [address] [place], [place] [id number] PCP - [facility] Medicine 06/25/23 Team Status: Inactive Member Role Status Dates Dr. Abimbola Cavazos MD Primary Care Provider Active Dr. Irish Dubois MD Attending Provider, Referring P scotty Active Business Dean Relationship Specialty Start Date End Date Abimbola Cavazos MD [address] [place] [address] PCP - General Family Medicine 06/25/23 Team Status: Inactive Member Role Status Dates Dr. Abimbola Cavazos MD Primary Care Provider Active Start: November 17, 2024 End: November 17, 2024 Dr. Abimbola Cavazos MD Attending Provider Active St art: November 17, 2024 End: November 17, 2024 Dr. Abimbola Cavazos MD Referring Provider Active St art: November 17, 2024 End: November 17, 2024 Team Status: Inactive Member Role Status Dates Dr. Abimbola Cavazos MD Primary Care Provider Active Start: February 17, 2025 End: February 17, 2025 VERONICA SAM MD Attending Provider Active Star t: February 17, 2025 End: February 17, 2025 VERONICA SAM MD Referring Provider Active Star t: February 17, 2025 End: February 17, 2025 Team Status: Active Member Role/Relationship Status Dates Dr. Abimbola Cavazos MD Family Provider Active Dr. Abimbola Cavazos MD Primary Care Provider Active Team Status: Inactive Member Role/Relationship Status Dates Dr. Abimbola Cavazos MD Primary Care Provider Active Start: February 17, 2025 End: February 17, 2025 VERONICA SAM MD Attending Provider Active Star t: February 17, 2025 End: February 17, 2025 VERONICA SAM MD Referring Provider Active Star t: February 17, 2025 End: February 17, 2025 Team Status: Inactive Member Role/Relationship Status Dates Dr. Abimbola Cavazos MD Primary Care Provider Active Start: June 14, 2025 End: June 14, 2025 Dr. Abimbola Cavazos MD Referring Provider Active St art: June 14, 2025 End: June 14, 2025 Jed DEGROOT PA Attending Provider Active Start: June 14, 2025 End: June 14, 2025 Business Dean Relationship Specialty Start Date End Date Abimbola Cavazos MD [address] [place] [address] PCP - General Family Medicine 06/25/23 Team Status: Inactive Member Role/Relationship Status Dates Dr. Abimbola Cavazos MD Primary Care Provider Active Start: June 14, 2025 End: June 14, 2025 Dr. Abimbola Cavazos MD Referring Provider Active St art: June 14, 2025 End: June 14, 2025 Jed DEGROOT PA Attending Provider Active Start: June 14, 2025 End: June 14, 2025 Team Status: Inactive Member Role/Relationship Status Dates Dr. Abimbola Cavazos MD Primary Care Provider Active Start: June 22, 2025 End: June 22, 2025 Dr. Abimbola Cavazos MD Attending Provider Active St art: June 22, 2025 End: June 22, 2025 Dr. Abimbola Cavazos MD Referring Provider Active St art: June 22, 2025 End: June 22, 2025 Source Comments (unrecognize d section and content) In the event this informatio n is protected by the [facility] Confidentiality of Alcohol and Drug Abuse Patient Records regulations: The Federal rules restrict any use of the information to criminally investigate or prosecute any alcohol or drug abuse patient.[facility] the event this information is protected by the Federal Confidentiality of Alcohol and Drug Abuse Patient Records regulations: The Federal rules restrict any use of the information to criminally investigate or prosecute any alcohol or drug abuse patient.[facility] HealthIn the event this information is protected by the Federal Confidentiality of Alcohol and Drug Abuse Patient Records regulations: The Federal rules restrict any use of the information to criminally investigate or prosecute any alcohol or drug abuse patient.[facility] Reason for Visit (unrecogniz ed section and content) Reason Comments Pain, Sinus Pressure in face and ears, cough x 2 weeks Specialty Diagnoses / Procedures Referred By Contac t Referred To Contact Family Medicine / [facility] Diagnoses Cough Headache sinus, congestion, cough, headache Procedures OFFICE/OUTPATIENT ESTABLISHED MOD MDM 30-39 MIN EST SAME DAY Self Lito Martines APRN.TUBING SUPERVISOR [address] [place] [address] Referral ID Status Reason Start Date Expiration Date Visits Re quested Visits Authorized [id number] Closed 06/25/2023 11/08/2023 1 1 Reason Comments Pain, Sinus Sinus pressure, cleopatra estion and drainage x 2 weeks and frequency x 2 days Reason Comments Sinus Problem FOR RECORDS PERTAINING TO PATIENTS WHO ARE [...] BE BASED ON THE PRIMARY CLINICAL RECORDS. [employer] [facility]. provides no warranty or guarantee of the accuracy or completeness of information in this document.
[2025-10-16 16:09] LABS: Fats, Neutral Normal (.); Fats, Total Normal (.); pH, Stool 6.5 (7.0-7.5)
[2025-10-18 19:08] LABS: Giardia Lamblia, Stool EIA Negative (Negative); H. PYLORI STOOL AG Negative (Negative); Pancreatic Elastase, Fecal > 800 (>200)
== END | disposition home or self-care (01) ==
LOC: LAB 09:44 → LABSPEC 09:45
PROVIDERS: PCP Family Medicine; Referring Provider Family Medicine; Visit Provider Family Medicine
DX: R19.7 Diarrhea, unspecified (principal)
CPT/HCPCS: 82653; 82705; 83630; 83986; 87329; 87338; 87493